=== PATIENT | female | born 1930 | race Caucasian/White ===

== ENCOUNTER 2016-12-03 05:49 | Inpatient (IN) | payer MEDICARE ==
[2016-12-03] VITALS (10 sets, daily range): BP systolic 94–130; BP diastolic 49–85; PULSE 86–119; RESP 14–20; O2SAT 88–99
[~2016-12-03] VITALS: Ht 157.5 cm; Wt 61.4 kg
[~2016-12-03 05:49] MED LIST: ACET650T46 PO; AMOX-366 PO; BENZ100C8 PO; CEFU500T PO; CHOL10008 PO; CLOP75TA3 PO; DEP500A PO; FLUO40CA12 PO; FURO-129 PO; GUAI400T57 PO; IPRA3AMP IH; LACT1CAP57 PO; LIP40 PO; METO50TA3 PO; MIRT45TA PO; O2 NASAL; OMEP20CA11 PO; ONDA4TAB6 PO; OXYC-474 PO; POLY17PO6 PO; SENN17.27 PO; SUCR1TAB30 PO
[2016-12-03 06:13] LABS: BASOPHILS % (AUTO) 0.1 % (0-3); EOSINOPHILS % (AUTO) 2.1 % (0-5); MONOCYTES % (AUTO) 11.7 % (4-12); Mean Corpuscular Hemoglobin 29.3 pg (27.0-35.0); Mean Corpuscular Volume 94.4 fL (81-100); NEUTROPHILS % (AUTO) 55.7 % (40-74); Platelet Count 236 bil/L (150-400)
--- NOTE | 2016-12-03 06:25 | ED.REPORT ---
HPI-Chest Pain 40 and Over Date of Service December 03, 2016 ED Provider: Garret Mercado MD The patient is an 86 year old female w/ a hx of CHF and a-fib who presents to the ED due to intermittent, left-sided, chest pain radiating into the back and left arm onset 8 hrs SHIPPING LEAD PERSON. Yesterday, the pt walked half of [employer], returned home and seemed to feel normal. She used a whole tank of O2 (3L). By 1999 last night, she did not feel well and she, "knew something was wrong." Associated symptoms include light headedness, nausea, dizziness, loss of appetite, and SOB. She noticed an elevated blood pressure and took her usual medications. Her blood pressure then returned to normal and she went to bed. At 2200, while laying down, she experienced left sided chest pain radiating into her back and left arm. She denies vomiting, cough, and fever. Her symptoms continued intermittently throughout the night. The pt is currently on Plavix and Coy. Nursing Notes Stated Complaint: LEFT SIDED CHEST PRESSURE Chief Complaint: Chest Pain Nursing Notes Reviewed: Yes Allergies: Coded Allergies: Contrast Media (Verified Allergy, Severe, RASH, 12/03/16) chlorpromazine (Verified Allergy, Severe, RASH ORAL SWELLING, 12/03/16) RASH & SWELLING codeine (Verified Allergy, Severe, RASH,nausea,hives, 12/03/16) gentamicin (Verified Allergy, Severe, EYES CLOSE WITH THE EYE DROPS, ) iodine (Verified Allergy, Severe, RASH, 12/03/16) povidone (Verified Allergy, Severe, RASH, 12/03/16) prochlorperazine (Verified Allergy, Severe, RASH, THROAT SWELLING AND DIFFICULTY SWALLOWING, 12/03/16) tetanus toxoid, adsorbed (Verified Allergy, Severe, SWELLING, SOB, 12/03/16) hydromorphone (Verified Allergy, Intermediate, Hallucinations, 12/03/16) aspirin (Verified Allergy, Unknown, interacts with medication Depakote, 12/03/16) nickel (Verified Allergy, Unknown, Rash, 12/03/16) hydromorphone HCl (Verified Adverse Reaction, Severe, Hallucinations, ) warfarin (Verified Adverse Reaction, Unknown, 12/03/16) States "I didn't get my PT tested and almost bled to " Uncoded Allergies: NICKEL (Allergy, Severe, RASH, 08/13/15) Meclizine (Allergy, Unknown, UNKNOWN, 08/13/15) Scheduled ([O2]) 3 L NASAL continously Acetaminophen (Tylenol Arthritis) 650 Mg Tablet.er 1,300 MG PO HS Acetaminophen (Tylenol Arthritis) 650 Mg Tablet.er 650 MG PO MORNING Atorvastatin (Lipitor) 40 Mg Tablet 40 MG PO HS Cholecalciferol (Vitamin D3) (Vitamin D3) 1,000 Unit Tab.chew 1,000 UNIT PO DAILY Clopidogrel Bisulfate (Plavix) 75 Mg Tablet 75 MG PO DAILY Divalproex DR (Depakote DR) 500 Mg Tablet 500 MG PO BID Swallowed whole without chewing to avoid local irritation of the mouth and throat. Fluoxetine (Prozac) 40 Mg Capsule 40 MG PO DAILY Furosemide (Lasix) 20 Mg Tablet 40 MG PO BID Metoprolol Tartrate (Metoprolol Tartrate) 50 Mg Tablet 75 MG PO BIDWM Ranitidine (Ranitidine) 150 Mg Capsule 150 MG PO BID Scheduled PRN Ipratropium/Albuterol Sulfate (Iprat-Albut 0.5-3(2.5) mg/3 mL Inhalant Soln) 3 Ml Ampul.neb 3 ML IH QID PRN PRN For Shortness of Breath Mirtazapine (Remeron) 45 Mg Tablet 45 MG PO HS PRN PRN Insomnia Oxycodone (Roxicodone) 5 Mg Tablet 5 MG PO Q4H PRN PRN For Pain Polyethylene Glycol 3350 (Miralax) 17 Gm Powd.pack 17 GM PO DAILY PRN PRN For Constipation Sennosides (Senna-Extra) 17.2 Mg Tablet 17.2 MG PO HS PRN PRN For Constipation General Time Seen by MD: 06:05 Chief Complaint Chest pain Hx Obtained From: Patient Arrived By: Walk-in Sudden in Onset?: Yes Onset Occurred: 5 - 8 hours ago Symptom Duration: Since onset Location: : Chest left Quality: Painful Radiation: : Arm left: Back Severity: Current: No pain currently Recent Healthcare: No recent doctor visit, No recent hospitalization Similar Sx Previous: No Past Medical History Past Medical History Notes: PCP: Dr. Ross Patient admitted November 14-2015 for pneumonia treated with Zithromax and Rocephin Developed diarrhea, C. difficile neck negative Past Medical History Anemia rheumatic fever History of pneumonia Atrial fibrillation on Plavix due to history of GI bleeding History of seizures on divalproex Reports: Congestive heart failure, Hyperlipidemia, Peptic ulcer disease Reports: Atrial fibrillation, Depression, Seizure disorder Past Surgical History 2 laminectomies 4 spinal fusions 2 bladder surgeries Bowel resection Bilateral hip replacements Reports: Hysterectomy, Tonsillectomy Family History Noncontributory Smoking History Former Smoker Social History Alcohol Use: 1-3 per week Drug Use: Denies drug use Other Social History: , Local resident Occupation Patient worked as a nurse in [place], [place], 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 Ambulatory Status Walker Review of Systems Constitutional: Denies: Fever Respiratory: Reports: Shortness of breath, Denies: Non-productive cough Cardiovascular: Reports: Chest pain GI: Reports: Nausea, Denies: Vomiting Neurologic: Reports: Dizziness, Lightheaded Complete sys rev & neg: except as marked. Physical Exam Initial Vital Signs Vital Signs (First) Date Time Temp Pulse Resp B/P Pulse Ox O2 Delivery O2 Flow Rate FiO2 12/03/16 05:53 37.0 104 20 130/70 96 Room Air 12/03/16 06:19 3 Initial VS: Reviewed Head / Eyes: Atraumatic, Normocephalic ENT: Mucous membranes moist, Conjunctiva normal Neck: Supple Skin: Warm, Dry Respiratory / Chest: Atraumatic, Breath sounds NL, Breath sounds = bilat Cardiovascular: No murmurs Heart Rate / Rhythm: Positive: Irregular rhythm left sided, reproduceable chest pain Abdomen: Atraumatic, Soft, Non-tender Lower Extremity / Pelvis / MS: Atraumatic, No edema Interpretation & Diagnostics Lab Results Interpretation Result Diagram: 12/03/16 0555 12/03/16 0555 Test 12/03/16 05:55 White Blood Count 6.8th/mm3 (3.8-10.1) Red Blood Count 4.44mil/mm3 (3.90-5.20) Hemoglobin 13.0g/dL (12.0-15.6) Hematocrit 41.9% (35.0-46.0) Mean Corpuscular Volume 94.4fL (81-100) Mean Corpuscular Hemoglobin 29.3pg (27.0-35.0) Mean Corpuscular Hemoglobin Concent 31.0% (32.0-37.0) Red Cell Distribution Width 16.5% (12.3-15.4) Platelet Count 236bil/L (150-400) Neutrophils (%) (Auto) 55.7% (40-74) Lymphocytes (%) (Auto) 29.7% (14-46) Monocytes (%) (Auto) 11.7% (4-12) Eosinophils (%) (Auto) 2.1% (0-5) Basophils (%) (Auto) 0.1% (0-3) Sodium Level 142mEq/L (134-144) Potassium Level 4.4mEq/L (3.5-5.2) Chloride Level 98mEq/L (97-108) Carbon Dioxide Level 27mmol/L (18-29) Blood Urea Nitrogen 18mg/dL (8-27) Creatinine 0.69mg/dL (0.57-1.00) Estimat Glomerular Filtration Rate 116mL/min (>59) Glucose Level 125mg/dL (60-99) Calcium Level 9.7mg/dL (8.5-10.1) Magnesium Level 2.2mg/dL (1.6-2.6) Total Bilirubin 0.2mg/dL (0.0-1.2) Aspartate Amino Transf (AST/SGOT) 24U/L (0-50) Alanine Aminotransferase (ALT/SGPT) 11U/L (0-32) Alkaline Phosphatase 76U/L (25-165) Pro-B-Type Natriuretic Peptide 2178pg/mL (0-738) Total Protein 7.5g/dL (6.4-8.4) Albumin 4.2g/dL (3.4-5.0) Hold Saleh Top Tube Received (Received) Valproic Acid (Depakene) Level 91ug/mL (50-125) ECG Interpretation Time: 06:10 Interpreted by: ED physician Normal ECG Interpretation: No change from prior ECGs Rhythm / Conduction: Atrial fibrillation ((rate 104)) Re-Eval/Medical Decision Med Decision/Clinical Course 86-year-old female with left-sided chest pain, intermittent and associated dizziness, nausea, shortness of breath since last night. At rest. First set troponins negative. Discussed with cardiology who recommended admission trending troponins and EKGs. They will consult. Aspirin given. Time of Eval: 07:18 Re-Evaluation/Progress Note: Pt rechecked. Informed pt of need for admission for further observation. Pt understands and agrees with plan. All questions addressed. Consultation : Referral / Consult Name: Sienna Brennan MD Consulted With: Cardiology Call Returned at: 07:13 Director Of Pulmonary Unit: Agrees with eval, Agrees with plan Note: Dr. Brennan advised admit for observation. Counseled Regarding: Diagnosis, Lab results, Need for admission Discharge & Departure Primary Impression: Chest pain Chest pain type: unspecified Qualified Code: R07.9 - Chest pain, unspecified Ruled Out: ACS (acute coronary syndrome) Disposition: Home Discharge Condition All VS Reviewed: Yes Condition: Stable Referrals: Karen Ross MD (PCP) Scribe Attestation Portion of this note were transcribed by Saniya Newell. I, Dr. Mercado, personally performed the history, physical exam, and medical decision-making: I reviewed and confirmed the accuracy for the information in the transcribed note. Signed by: dorian Barnes, 12/03/16 0900 copies to: Karen Ross MD, Ben M MD December 03, 2016 06:25 Saniya Newell December 03, 2016 06:34 Garret Mercado MD December 03, 2016 06:25 Saniya Newell December 03, 2016 06:34
[2016-12-03 06:31] LABS: TROPONIN T 0.01 ug/L (0.0-0.011)
[2016-12-03 06:45] LABS: Magnesium 2.2 mg/dL (1.6-2.6)
[2016-12-03] MEDS ORDERED: Ondansetron 2 mg/mL 2 mL Inj IVPUSH PRN (07:40)
[2016-12-03] MEDS ORDERED: Polyethylene Glycol (PEG) 17 Gm Powder PO PRN ×2 (07:40→17:30)
[2016-12-03] MEDS ORDERED: Alum-Mag Hydrox-Simeth 30 mL Suspension PO PRN (07:40)
--- NOTE | 2016-12-03 08:29 | DRSVH ---
PROCEDURE: X-RAY CHEST ONE VIEW, PORTABLE ([id number]) INDICATIONS: left sided reproduceable chest pressure TECHNIQUE: One view of the chest was acquired. COMPARISON: [facility], CR, XR CHEST 2VW, 07/01/2016, 10:34. FINDINGS: Surgical changes and devices: None. Lungs and pleura: No pleural effusions or pneumothorax. Lungs are clear. Scattered subcentimeter h yperdensity presumed bibasilar calcific granulomas Mediastinum: Mediastinal contours appear normal. Heart size is normal. Bones and chest wall: No suspicious bony lesions. There are scattered discogenic changes Overlying s oft tissues appear unremarkable. IMPRESSION: Overall, no interval change or acute disease. Dictated by: Mynor Dotson M.D. on 12/03/2016 at 8:26 Approved by: Mynor Dotson M.D. on 12/03/2016 at 8:27
[2016-12-03] MEDS ORDERED: RANI150C4 PO (09:30)
[2016-12-03] MEDS ORDERED: ACET-2766 PO ×2 (09:44)
[2016-12-03] MEDS: Sodium Chloride LOK Flush 10 mL Syringe IVFLUSH SCH ×2 (11:30→16:08)
[2016-12-03 13:08] LABS: Creatine Kinase 59 U/L (21-215)
[2016-12-03 13:09] LABS: TROPONIN T < 0.010 ug/L (0.0-0.011)
[2016-12-03] MEDS ORDERED: Albuterol-Ipratropium 3 mL Inhalation Solution INHALATION PRN (17:30)
[2016-12-03] MEDS ORDERED: Furosemide 10 mg/mL 4 mL Inj IVPUSH ONE ×2 (17:40)
[2016-12-03] MEDS ORDERED: Furosemide 10 mg/mL 2 mL Inj IVPUSH ONE ×3 (18:10→20:10)
[2016-12-03 18:29] LABS: TROPONIN T < 0.010 ug/L (0.0-0.011)
[2016-12-03 18:42] LABS: Creatine Kinase 80 U/L (21-215)
--- NOTE | 2016-12-03 20:27 | PCM.HPMED ---
Subjective Date of Service December 03, 2016 Primary Provider: Admitting Physician: Primary Care Physician: Karen Ross MD Attending Physician: Admit Status: From the Emergency Department Chief Complaint: Chest pain History of Present Illness: 86-year-old white female with past medical history of A. fib, CHF of unknown type, hypertension, rheumatic fever is presenting with chest pain that has been ongoing since last night. Patient states that she has gone to [employer] and walk pretty well she also says that she has used up a whole tank of oxygen by using 3 L at a time. Subsequently she did not feel very well last night noticed that her blood pressure was high and took her medications which brought the blood pressure down. She states that she had a hypertensive urgency in the remote past. She had to stop Coumadin because of a bleeding problem. She states that she has mild acid reflux problems, her chest pain is radiating to the left arm, , she is thinking that her chest pain is ongoing 8 hours prior to arrival, she also has left pectoral wall pain that worsens with movement. Upper ultrasound echo from 02/14 shows A. fib with controlled rate, moderate pulmonary pressures, 55-60% EF, moderate mitral regurgitation, moderate tricuspid regurgitation, moderate left atrial dilation. In the ER troponins were negative chest x-ray was negative. Labs are within normal, troponin was negative, EKG showed no changes from prior. Dr. Palomino was contacted by the ER staff, who has asked for her to be admitted for chest pain rule out with just aspirin. Patient cannot tell me why she is on Plavix. Review of Systems: Gen.: No weight gain patient has been having fevers and malaise Eyes: no visual disturbances or blurring vision Cardiac: Denies pedal edema Pulmonary: Denies wheezing or bringing up of sputum , positive for dyspnea GI: No anorexia nausea : no dysuria Musculoskeletal: Left arm, chest wall pain as above Neuro: No syncope, seizures no loss of consciousness no new focal weakness, numbness or tingling Psychiatric: No new anxiety insomnia or depression Endocrine: No new heat or cold intolerances Allergies Coded Allergies: Contrast Media (Verified Allergy, Severe, RASH, 12/03/16) chlorpromazine (Verified Allergy, Severe, RASH ORAL SWELLING, 12/03/16) RASH & SWELLING codeine (Verified Allergy, Severe, RASH,nausea,hives, 12/03/16) gentamicin (Verified Allergy, Severe, EYES CLOSE WITH THE EYE DROPS, ) iodine (Verified Allergy, Severe, RASH, 12/03/16) povidone (Verified Allergy, Severe, RASH, 12/03/16) prochlorperazine (Verified Allergy, Severe, RASH, THROAT SWELLING AND DIFFICULTY SWALLOWING, 12/03/16) tetanus toxoid, adsorbed (Verified Allergy, Severe, SWELLING, SOB, 12/03/16) hydromorphone (Verified Allergy, Intermediate, Hallucinations, 12/03/16) aspirin (Verified Allergy, Unknown, interacts with medication Depakote, 12/03/16) nickel (Verified Allergy, Unknown, Rash, 12/03/16) hydromorphone HCl (Verified Adverse Reaction, Severe, Hallucinations, ) warfarin (Verified Adverse Reaction, Unknown, 12/03/16) States "I didn't get my PT tested and almost bled to " Uncoded Allergies: NICKEL (Allergy, Severe, RASH, 08/13/15) Meclizine (Allergy, Unknown, UNKNOWN, 08/13/15) Home Medications Her medications include atorvastatin, Plavix, and Depakote, fluoxetine, Lasix, metoprolol tartrate, omeprazole, benzonatate, Mucinex, DuoNeb nebs, and Zofran, PMH rheumatic fever, chf of unknown type, afib, seizures, anemia, hypertension, arthritis, depression Surgical History two laminectomies, two spinal fusions, bowel resection, hysterectomy, tonsillectomy, bowel resection, b/l hip replacement, L wrist surgery Family History She has 2 children who . One of them of cancer and necrotizing skin infection. The other one simply disappeared and presumed that she has full children total Social History Occupation: Retired nurse Hx Alcohol Use: Yes Hx Substance Use: Yes Hx Tobacco Use: Yes (quit in 1984) Smoking Status: Former Smoker Exam Vital Signs Vital Sign - Last Date Time Temp Pulse Resp B/P Pulse Ox O2 Delivery O2 Flow Rate FiO2 12/03/16 06:19 86 14 120/69 94 Nasal Cannula 3 12/03/16 05:53 37.0 Exam General: NAD, laying in bed, some what distressed female HEENT: NCAT Eyes: [place] conjunctivae. No ptosis, PERRL Neck: No masses, trachea midline, no thyromegaly Lungs: CTA with normal respiratory effort, no crackles or wheezes CV: RRR, soft systolic murmur GI: Soft, non-tender with no hepatosplenomegaly MSK: no digital cyanosis Skin: Warm and dry. No rash, lesions or ulcers Psych: A&O X3, with appropriate affect Neuro: No focal deficits Musculoskeletal: Palpable chest wall tenderness also severe joint clicking on L arm flexion and abduction and adduction Lab and Diagnostics Result Diagram: 12/03/1655412/03/16554 Assessment & Plan This is a 86-year-old lady with a past medical history of CHF of unknown type, A. fib, hypertensive urgency, rheumatic fever presenting with chest pain ongoing for 8 hours Assessment #1 chest pain, . 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 tamayo, but was unsuccessful as it was passed her clinic time, we will attempt again 12/04 -- BNP is ordered -- Echocardiogram is ordered -- Continue her metoprolol, Plavix and statin -- Heparin subcutaneous 3 times a day for DVT prophylaxis Assessment #2 right-sided heart failure based on clinical examination and review of echo from 2014, [place] -- Lasix 40 mg this evening, Lasix 3 times a day 40 mg IV -- BNP returned elevated at greater than 2000 -- We will monitor for now as her blood pressures were on the low side -- Morphine when necessary -- Echocardiogram is ordered -- We will consult cardiology tomorrow Assessment #3 seizures, chronic -- Depakote levels were done -- Continue medication Assessment number 4 depression chronic -- Continue home meds Assessment #5 COPD -- Continue meds duonebs Assessment #6 GERD -- Pepcid by mouth CODE STATUS DO NOT RESUSCITATE/DO NOT INTUBATE Alternate decision-maker T J, son [phone] Pain Evaluation: Adequate Pain Control GI Prophylaxis: H2 antony VTE Prophylaxis: Sub-Q Heparin (Unfractionated) Resuscitation Status: DNR/DNI:Do Not Resuscitate/Intubate Elizabeth Stafford DO December 03, 2016 07:36
[2016-12-03] MEDS ORDERED: Albuterol-Ipratropium 3 mL Inhalation Solution NEB PRN (20:35)
[2016-12-03] MEDS: Heparin 5,000 Unit/mL Inj SUBQ SCH (21:28)
[2016-12-04] VITALS (11 sets, daily range): BP systolic 88–121; BP diastolic 54–90; PULSE 81–95; RESP 16–20; O2SAT 93–98
[2016-12-04] MEDS: Sodium Chloride LOK Flush 10 mL Syringe IVFLUSH SCH ×3 (00:37→16:19)
[2016-12-04] MEDS ORDERED: Nitroglycerin 2% 1 Gm Ointment TOPICAL ONE (02:00)
[2016-12-04] MEDS: Heparin 5,000 Unit/mL Inj SUBQ SCH ×3 (04:18→20:08)
--- NOTE | 2016-12-04 05:44 | PCM.PNMED ---
Subjective Date of Service December 04, 2016 Subjective Patient had extensive hx of spine problems, seems to have reproducible pain. Responding well to morphine, requested pain medication overnight. Nitroglycerin did not help but morphine did. She tells me her oxygen at home is for CHF, not COPD. Exam Vital Signs Vital Sign - Last Date Time Temp Pulse Resp B/P Pulse Ox O2 Delivery O2 Flow Rate FiO2 12/04/16 04:22 Supplement Oxygen 12/04/16 04:15 82 18 98 3.00 12/04/16 04:12 111/71 12/04/16 00:37 36.8 Intake and Output 12/03/16 12/03/16 12/04/16 Cumulative From/Thru 15:00 23:00 07:00 12/03/16 05:53 - 12/03/16 20:27 Intake Total 480 ml 480 ml Balance 480 ml 480 ml Intake Oral 480 ml 480 ml IV Total 0 ml 0 ml # Voids 1 1 Exam General: NAD, laying in bed, some what distressed female HEENT: NCAT Eyes: [place] conjunctivae. No ptosis, PERRL Neck: No masses, trachea midline, no thyromegaly. right-sided JVD, positive hepatojugular reflux Lungs: CTA with normal respiratory effort, no crackles or wheezes CV: RRR, soft systolic murmur GI: Soft, non-tender with no hepatosplenomegaly MSK: no digital cyanosis Skin: Warm and dry. No rash, lesions or ulcers Psych: A&O X3, with appropriate affect Neuro: No focal deficits Musculoskeletal: Palpable chest wall tenderness also severe joint pain in L shoulder IVs and Medications Medications Reviewed: Medications were reviewed in detail Lab and Diagnostics Laboratory Tests Test 12/03/16 17:50 12/04/16 05:44 Total Creatine Kinase 80U/L (21-215) Creatine Kinase MB 2.3ng/mL (0.0-5.3) Creatine Kinase MB % % (0.0-5.0) Troponin T < 0.010ug/L (0.0-0.011) 0.010ug/L (0.0-0.011) White Blood Count 7.2th/mm3 (3.8-10.1) Red Blood Count 4.39mil/mm3 (3.90-5.20) Hemoglobin 12.9g/dL (12.0-15.6) Hematocrit 41.9% (35.0-46.0) Mean Corpuscular Volume 95.4fL (81-100) Mean Corpuscular Hemoglobin 29.4pg (27.0-35.0) Mean Corpuscular Hemoglobin Concent 30.8% (32.0-37.0) Red Cell Distribution Width 16.8% (12.3-15.4) Platelet Count 201bil/L (150-400) Neutrophils (%) (Auto) 53.5% (40-74) Lymphocytes (%) (Auto) 32.4% (14-46) Monocytes (%) (Auto) 10.6% (4-12) Eosinophils (%) (Auto) 2.5% (0-5) Basophils (%) (Auto) 0.6% (0-3) Sodium Level 140mEq/L (134-144) Potassium Level 5.1mEq/L (3.5-5.2) Chloride Level 97mEq/L (97-108) Carbon Dioxide Level 27mmol/L (18-29) Blood Urea Nitrogen 18mg/dL (8-27) Creatinine 0.66mg/dL (0.57-1.00) Estimat Glomerular Filtration Rate 122mL/min (>59) Glucose Level 94mg/dL (60-99) Calcium Level 9.3mg/dL (8.5-10.1) Total Bilirubin 0.2mg/dL (0.0-1.2) Aspartate Amino Transf (AST/SGOT) 25U/L (0-50) Alanine Aminotransferase (ALT/SGPT) 8U/L (0-32) Alkaline Phosphatase 74U/L (25-165) Total Protein 6.6g/dL (6.4-8.4) Albumin 3.8g/dL (3.4-5.0) Result Diagram: 12/03/1655 12/03/16554 Cardiac Echo Impressions ECHO : 1930 Age: 86 yrs BP: 111/71 mmHg Reason For Study: ELEVATED BNP Ordering Physician: HOSPITALIST SVHPerformed By: Jim Youngblood Referring Physician: ELIZABETH US Interpretation Summary There is a prominent hiatal hernia behind the left atrium. There is mild- moderate concentric left ventricular hypertrophy. Left ventricular systolic function is normal without focal wall motion abnormalities. The ejection fraction is estimated to be 55-60%. LVEF has remained stable. The right ventricle grossly appears normal in size with probable normal systolic function. The right ventricular systolic pressure is estimated at 24 mmHg assuming a right atrial pressure of 3 mm Hg. Compared to the prior echo exam, there has been a decrease in the severity of pulmonary hypertension. The left atrium is severely dilated. The right atrium is mildly dilated. There is mild mitral regurgitation. MR has decreased since prior study. There is no other significant valvular heart disease. The aortic root is normal size. Reading Physician:PM Assessment & Plan This is a 86-year-old lady with a past medical history of CHF of unknown type, A. fib, hypertensive urgency, rheumatic fever presenting with chest pain ongoing for 8 hours Assessment #1 chest pain, . 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 Fierro, but was unsuccessful as it was passed her clinic time, we will attempt again 5/ -- BNP is ordered -- Echocardiogram is ordered: Appears her heart function actually improved since her last echo. -- Continue her metoprolol, Plavix and statin -- Heparin subcutaneous 3 times a day for DVT prophylaxis -- 5/ patient is ruled out for ACS. -- She is given 1 dose of 40 mg IV Lasix5/ evening, was seen by cardiology this morning. Dr. El has seen the patient and determined that this is purely musculoskeletal. He does not feel any further workup is called for. We appreciate their recommendations -- We will restart home dose of Lasix. Stop aspirin Assessment #2 right-sided heart failure based on clinical examination and review of echo from 2014, [place] -- Lasix 40 mg this evening, Lasix 3 times a day 40 mg IV: Lasix is discontinued after cardiology has seen the patient and echocardiogram was done -- BNP returned elevated at greater than 2000 -- We will monitor for now as her blood pressures were on the low side -- Morphine when necessary: Discontinued morphine, called son MARTINA who tells me that patient likes pain medication. Has struggled with pain medication addiction for about 10 years. Son is very careful with giving her pain medications. Son expects her to go back to her home setting, he has he had made arrangements for caregivers for her to stay at home. -- Echocardiogram is ordered: Results are reviewed as above. 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 -- Oxycodone when necessary is ordered, however we do not plan to continue this medication at discharge. Plan to get her pain under control with tramadol or Tylenol 3. CODE STATUS DO NOT RESUSCITATE/DO NOT INTUBATE Alternate decision-maker Nick Almonte, son [phone] Disposition: Patient will be discharged home tomorrow on a careful pain medication regimen. ACS is ruled out. Her cardiac failure is no worse than her baseline. Pain Evaluation: Pain not Controlled GI Prophylaxis: H2 antony VTE Prophylaxis: Sub-Q Heparin (Unfractionated) VTE Mechanical Devices: Intermittant Pneumatic CD Resuscitation Status: DNR/DNI:Do Not Resuscitate/Intubate Elizabeth Us DO December 04, 2016 05:44
[2016-12-04] MEDS ORDERED: Furosemide 10 mg/mL 4 mL Inj IVPUSH SCH (06:00)
[2016-12-04 06:35] LABS: BASOPHILS % (AUTO) 0.6 % (0-3); EOSINOPHILS % (AUTO) 2.5 % (0-5); MONOCYTES % (AUTO) 10.6 % (4-12); Mean Corpuscular Hemoglobin 29.4 pg (27.0-35.0); Mean Corpuscular Volume 95.4 fL (81-100); NEUTROPHILS % (AUTO) 53.5 % (40-74); Platelet Count 201 bil/L (150-400)
--- NOTE | 2016-12-04 10:07 | DRSVH ---
PROCEDURE: X-RAY LEFT RIBS, TWO VIEWS ([id number]) INDICATIONS: pain TECHNIQUE: 3 views of the left ribs were acquired. COMPARISON: [facility], CR, XR CHEST 1VW (PORTABLE), 12/03/2016, 6:13. [facility], CR, XR CHEST 2VW, 07/01/2016, 10:34. [facility], CR, XR CHEST 2VW, 06/13/2016, 11:38. [facility], CR, XR CHEST 2VW, 11/28/2015, 13:24. FINDINGS: Surgical changes and devices: Fixation hardware within the lumbar spine incompletely visualized.. Bones and chest wall: Left fifth through eighth healed posterior lateral fractures redemonstrated. N o new acute fracture seen. Lungs and pleura: The visualized lung appears clear. No pleural effusions or pneumothorax are visib le. IMPRESSION: No new acute displaced left sided rib fracture seen. Dictated by: Alverto PATEL Interpreted: William Fraser MD on 12/04/2016 at 10:05 Transcribed by: CHERI on 12/04/2016 at 10:06 Approved by: William Fraser M.D. on 12/04/2016 at 10:45
--- NOTE | 2016-12-04 10:08 | DRSVH ---
PROCEDURE: X-RAY LEFT SHOULDER, MINIMUM TWO VIEWS ([id number]) INDICATIONS: pain TECHNIQUE: 3 views of the shoulder were acquired. COMPARISON: [facility], CR, XR RIBS UNILAT 2VW LT, 12/04/2016, 9:10. [facility], CR, XR CHEST 1VW (PORTABLE), 12/03/2016, 6:13. [facility], CR, XR CHEST 2VW, 2015, 10:34. [facility], CR, XR CHEST 2VW, 06/13/2016, 11:38. [facility], CR, XR CHEST 2VW, 11/28/2015, 13:24. FINDINGS: Bones: No fractures or dislocations. No suspicious bony lesions. Visualized ribs appear intact. T he acromioclavicular and severe glenohumeral joint narrowing with periarticular osteophyte formation. . Several healed left posterior lateral fractures redemonstrated. Soft tissues: No suspicious soft tissue calcifications. IMPRESSION: 1. Severe glenohumeral joint degeneration. Dictated by: Alverto Morrow [facility] Interpreted: William Fraser MD on 12/04/2016 at 10:07 Transcribed by: CHERI on 12/04/2016 at 10:08 Approved by: William Fraser M.D. on 12/04/2016 at 10:46
--- NOTE | 2016-12-04 12:23 | CONS ---
[address] [address] CARDIOLOGY INPATIENT CONSULTATION REPORT PATIENT: JEFFERSON ZAYAS : 1930 MR#: [id number] ADMIT: 12/03/2016 JOB ID: [id number] DATE OF SERVICE: 12/04/2016 HISTORY OF PRESENT ILLNESS: This is a very pleasant 86-year-old lady with history of atrial fibrillation, (not anticoagulated because of hx of hematuria), hypertension and chronic hypoxia, and no prior history of coronary artery disease who was admitted on December 03, 2016, with chest pain. She is a retired nurse. The patient is a hard historian. She tells me that on Friday, December 02, 2016, she went to [facility] and she was walking quite a bit there pushing the cart, and she did pretty well, but at the end she got tired. when she came home she did not feel well. She tells me that in the evening she developed chest heaviness in the middle of her chest and on her left side of her chest, radiating to her arm. It was heavy and very uncomfortable. She checked her blood pressure, and it was high, 180/86 mmHg. She took her medication and blood pressure got better. Her chest heaviness got better but then it got again worse. She tells me that with deep breathing, chest heaviness was getting worse. All night she had chest heaviness. In the morning she was sitting on the floor, and she could not reach her son on the phone and her [employer] did not work. So, finally, Life [employer] people from my understanding called her, and 911 was called. She was brought to hospital. She continued having chest heaviness in her left side of her chest, radiating to her left arm, and it was actually reproducible with palpation. She did not feel nauseated or clammy. She felt maybe a little lightheaded and dizzy. On admission on EKG she was in atrial fibrillation with heart rate of 104. Also, blood pressure on admission was 130/70 mmHg, temperature 37 C, pulse 104 per minute and respiratory rate 20 per minute. She has chronic hypoxia. Since 2014, she had been using on oxygen on and off oxygen till November 2015,when she was hospitalized with aspiration pneumonia, and after that she has been using oxygen constantly at 3 L. Her labs on admission showed that she was not anemic. She had normal kidney function and electrolytes, and her troponins were negative x3. She did have an elevated proBNP of 2178. The patient tells me that in the past she has been getting chest heaviness on and off if she was doing strenuous activity. She cannot specify more exactly her intermittent chest heaviness in the past but stated that on Thursday the chest heaviness was totally different because it was there and it was not going away. She periodically gets short of breath. Again, tells me that it depends on activity, and she has been at home on furosemide 40 mg p.o. b.i.d. Her last echo was done in January 2015, and it showed that her ejection fraction was 55% to 60%. She had normal LV size. She had moderate mitral regurgitation and moderate tricuspid regurgitation. She had pulmonary hypertension with pulmonary pressure 41-46 mmHg; also she had moderate enlargement of both atria. The patient tells me that she has also a history of seizures, and she is on Depakote. Her last seizure was three years ago. She also has a history of shingles in the past on the right side of her lower chest. She denies presyncopal or syncopal episodes recently. She has a remote heavy smoking history. She used to smoke 1-2 packs a day and quit in 1994. She drinks one glass of wine occasionally. She denies recreational drug use. She lives alone. She has home health people coming to help her out periodically. She does not have a history of COPD and actually, she was seen by a drop wire operator in 2016 and had normal PFTs. REVIEW OF SYSTEMS: A 12-point review of systems negative except the ones mentioned in HPI. HOME MEDICATIONS: Her home medications include: 1. Atorvastatin 40 mg daily. 2. Clopidogrel 75 mg daily. It should be noted that she is not on aspirin. She tells me that a neurologist did not advise to take aspirin because she is taking Depakote. 3. She is on Depakote 500 mg tablet 1 tablet twice a day. 4. She is on metoprolol tartrate 50 mg 1 tablet twice a day. 5. Lasix 20 mg tablet 2 tablets twice a day. 6. She uses also ipratropium/albuterol 0.5 mg/3 mg (2.5 mg base)/3 mL nebulizer solution, inhale 3 mL by nebulization route 4 times every day. 7. MiraLAX 17 g per dose oral powder, take 17 g by oral route every day mixed with 8 ounces of water. 8. Mirtazapine 45 mg tablets. Take 1 tablet every day before bedtime. 9. She is on Prozac 40 mg daily. 10. Omeprazole 20 mg daily. PAST MEDICAL HISTORY: 1. Rheumatic fever. 2. Chronic atrial fibrillation. 3. Hypertension. 4. Seizures. SURGICAL HISTORY: 1. Two laminectomies. 2. Two spinal fusions. 3. Bowel resection. 4. Hysterectomy. 5. Tonsillectomy. 6. Bowel resection. FAMILY HISTORY: She cannot provide family history because she is adopted. EXAMINATION: Vital signs: Temperature 36.4, pulse 89 per minute, respiratory rate 17, blood pressure 111/67, pulse oximetry 97% saturation currently on room air. General: In no acute distress, lying in the bed comfortably. HEENT: Mucous membranes moist, sclerae anicteric. Neck: Supple, no thyromegaly. Lungs: Normal breathing sounds bilaterally, no crackles, no wheezing. Cardiovascular: Irregularly irregular rhythm. No murmur appreciated. GI: Abdomen nontender with palpation. Extremities: No lower extremity edema. Skin: Dry, no rash. Neuro: Alert and oriented x3. No gross abnormalities. LABORATORIES: She had a negative troponin x4 with last one done on December 04, 2016. Sodium 140, potassium 5.1, chloride 97, carbon dioxide 27, BUN 18, creatinine 0.66, glucose 94, calcium 9.3. Total bilirubin 0.2, AST 25, ALT 8, alkaline phosphatase 74, total protein 6.6, albumin 3.8. She is not anemic. White blood cells 7.2, red blood cells 4.39, hemoglobin 12.9, hematocrit 41.9, platelets 201. IMAGING: Chest x-ray showed no pleural effusions. Lungs are clear. Scattered subcentimeter hyperdensity present. Bibasilar calcific granuloma. ASSESSMENT AND PLAN: This is a very pleasant 86-year-old lady with history of chronic atrial fibrillation not anticoagulated because of history of hematuria in the past and she is just on Plavix, and she is not on aspirin because Neurology did not recommend to use aspirin, as she is on Depakote. She has a history of hypertension also, history of hyperlipidemia, history of moderate mitral regurgitation, moderate TR, pulmonary hypertension. She was admitted to [facility] on 12/03/2016 with chest heaviness, which has a pleuritic component and reproducible with palpitation. Her troponins were negative. 1.Chest pain/chest heaviness is atypical, it has has been constant since Thursday and troponins are still negative. It also has a pleuritic component and it is reproducible with chest palpitation. All of this suggests that the chest pain she has been experiencing is likely noncardiac in origin. 2. Chronic atrial fibrillation. Per telemetry, her atrial fibrillation is generally rate Controlled. She is not anticoagulated on warfarin because of hematuria in the past but she is on Plavix because Neurology did not recommend to have aspirin with Depakote together. On EKG on admission, she did not have any ischemic changes. 3. Hypertension. Controlled. She has not been hypertensive. 4. History of moderate mitral regurgitation. Left ventricular ejection fraction in the past per echo from 2015, was 55% to 60%. She is euvolemic on exam. RECOMMENDATIONS: As I mentioned above, I do not think that her chest heaviness/chest pain is cardiac in origin. At this point, I would recommend to discontinue her nitroglycerin paste. Also, she is not hypervolemic on exam. She does not have signs of heart failure. I would recommend to discontinue her IV furosemide and keep her on p.o. furosemide 40 mg daily. She actually has been taking as outpatient, 40 mg b.i.d. I think she does not need so much. Would continue metoprolol 75 mg b.i.d. I would recommend to do echo as an outpatient to re-assess her cardiac function and valvular apparatus. I do not think it will be easy to do echo right now when she has reproducible tenderness left side of chest wall. Also, as an outpatient she can have done a Lexiscan stress test, which is not urgent now. As I noted above, she has a history of shingle in the past. Right now, she does not have any rash. She will need to follow up with her PCP if she has continuous chest wall pain. At this point, I think the patient can be discharged and followed up with Primary Care and Cardiology offices at some point. The case and management were discussed and coordinated with on-call Business Development Dr. Brennan. BONIFACIO
--- NOTE | 2016-12-04 12:31 | DRSVH ---
[facility] [address] [place] [address] Echocardiogram Report Name: JEFFERSON ZAYAS Date: 12/04/2016 Height: 62 in Hospital Exam Location: [facility] Weight: 135 lb Gender: Female BSA: 1.6 m2 : 1930 Age: 86 yrs BP: 111/71 mmHg Reason For Study: ELEVATED BNP Ordering Physician: HOSPITALIST SVerformed By: Jim Youngblood Referring Physician: JAY US Interpretation Summary There is a prominent hiatal hernia behind the left atrium. There is mild- moderate concentric left ventricular hypertrophy. Left ventricular systolic function is normal without focal wall motion abnormalities. The ejection fraction is estimated to be 55-60%. LVEF has remained stable. The right ventricle grossly appears normal in size with probable normal systolic function. The right ventricular systolic pressure is estimated at 24 mmHg assuming a right atrial pressure of 3 mm Hg. Compared to the prior echo exam, there has been a decrease in the severity of pulmonary hypertension. The left atrium is severely dilated. The right atrium is mildly dilated. There is mild mitral regurgitation. MR has decreased since prior study. There is no other significant valvular heart disease. The aortic root is normal size. Procedure: A two-dimensional transthoracic echocardiogram with color flow and Doppler was performed. The study quality was technically adequate. Comparison is made with the echocardiogram of 02/05/15. The patient was in atrial fibrillation with heart rates between 84-107 bpm during the exam. Left Ventricle: There is mild-moderate concentric left ventricular hypertrophy. The left ventricle is normal in size. Left ventricular systolic function is normal without focal wall motion abnormalities. The ejection fraction is estimated to be 55-60%. Right Ventricle: The right ventricle grossly appears normal in size with probable normal systolic function. Atria: The left atrium is severely dilated. The right atrium is mildly dilated. The interatrial septum is intact with no evidence for an atrial septal defect. Mitral Valve: The mitral valve leaflets appear mildly thickened, but open well. There is moderate mitral annular calcification. There is mild mitral regurgitation. Aortic Valve: The aortic valve is normal in structure and function. There is trace aortic regurgitation. Tricuspid Valve: The tricuspid valve is normal. There is mild tricuspid regurgitation. The right ventricular systolic pressure is estimated at 24 mmHg assuming a right atrial pressure of 3 mm Hg. Compared to the prior echo exam, there has been a decrease in the severity of pulmonary hypertension. Pulmonic Valve: The pulmonic valve leaflets are thin and pliable; valve motion is normal. There is a trace or physiologic amount of pulmonic regurgitation. There is no other significant valvular heart disease. Great Vessels: The aortic root is normal size. The ascending aorta is at the upper limits of normal in size. The pulmonary artery is normal size. The IVC is of normal diameter and collapses greater than 50% with a sniff. This suggests a low right atrial pressure of 3 mm Hg. Pericardium/ Pleura There is no pericardial effusion. There is no pleural effusion. MMode/2D Measurements & Calculations LVIDd: 2.3 cm RA long axis LVOT diam: 2.0 cm LVIDs: 2.2 cm LA A2 area: 21.7 cm AoV Opening FS: 3.5 % LA A4 area: 31.5 cm RA area EPSS: 0.20 cm LA length (vol) Ao root diam IVSd: 1.3 cm : 19.5 cm LA vol: 95.9 ml RA vol asc Aorta Diam LA vol index : 57.5 ml RA Ao Arch Diam (Prox : 59.3 ml/m2 : 35.6 mm2 Trans): 2.2 cm LV rubio. diameter/BSA LV sys. diameter/BSA (cm/m^2): 1.4 (cm/m^2): 1.4 Doppler Measurements & Calculations Ao V2 max TR max jovany: 226.4 cm/secAo V2 mean LV V1 max PG : 92.8 cm/sec TR max P.5 mmHg : 64.3 cm/sec Ao max PG PA V2 max: 70.2 cm/sec Ao V2 VTI LV V1 VTI : 3.5 mmHg PA mean P.2 mmHg : 9.7 cm Ao mean PG ISABEL(V,D): 2.0 cm2 LVOT Max Jovany : 58.2 cm/sec ISABEL(I,D): 2.1 cm sev ratio PA V2 mean ISABEL indexed to BSA : 51.8 cm/sec (cm^2/m^2): 1.3 PA pr(Accel) : 39.7 mmHg Reading Physician:JENNIE
[2016-12-05] MEDS: Sodium Chloride LOK Flush 10 mL Syringe IVFLUSH SCH ×2 (00:02→08:08)
[2016-12-05 00:19] VITALS: BP 107/73; PULSE 89; RESP 20; O2SAT 94
--- NOTE | 2016-12-05 00:29 | CONS ---
[address] [address] CONSULTATION REPORT PATIENT: JEFFERSON ZAYAS : 1930 MR#: [id number] ADMIT: 12/03/2016 JOB ID: [id number] DATE OF SERVICE: 12/04/2016 REQUESTING PHYSICIAN: Elizabeth Stafford DO. REASON FOR EVALUATION: Chest pain. HISTORY OF PRESENT ILLNESS: I saw and examined the patient. Please see Uche Moreno's notes for detail. IMPRESSION: 1. Chest wall pain. 2. No evidence of congestive heart failure. 3. Moderate mitral regurgitation. 4. Chronic atrial fibrillation. PLAN: The patient could be discharged from the hospital. Aspirin will be discontinued as she is already receiving Plavix. I will discontinue furosemide IV and change her to furosemide 40 mg p.o. once daily. The patient will follow with her primary oracle security consultant, Dr. Fierro. [facility]AMPUSAngela
[2016-12-05 03:14] VITALS: PULSE 130
[2016-12-05] MEDS: Heparin 5,000 Unit/mL Inj SUBQ SCH ×2 (04:07→12:43)
[2016-12-05 04:10] VITALS: BP 100/67; PULSE 103; RESP 17; O2SAT 97
[2016-12-05] MEDS ORDERED: FURO40TA4 PO (07:36)
[2016-12-05] MEDS ORDERED: METO25TA6 PO (07:36)
[2016-12-05] MEDS ORDERED: CYCL10TA9 PO (07:36)
[2016-12-05 07:51] VITALS: PULSE 97
[2016-12-05 07:55] VITALS: BP 124/78; PULSE 104; RESP 16; O2SAT 96
[2016-12-05 08:00] VITALS: PULSE 118
[2016-12-05 08:04] LABS: APPEARANCE,URINE HAZY (CLEAR,HAZY); COLOR,URINE YELLOW (YELLOW); OCCULT BLOOD,URINE NEGATIVE (NEGATIVE); PH,URINE 6.5 (5.0-8.0); UROBILINOGEN,URINE NORMAL (NORMAL)
--- NOTE | 2016-12-05 09:04 | PCM.DIMED ---
Discharge Instructions Date of Service December 05, 2016 Dates of Hospitalization December 03, 2016 at 08:15 Discharge Diagnosis Discharge Diagnosis chest pain due to arthiritis glenohumoral pain, mitral regurgitation, afib Medication Instructions Please note your furosemide was changed to 20 mg BID from 40 mg BID. Please note your metoprolol dose is changed to 50 mg BID from 75 mg BID. Out patient PT for L shoulder pain for two weeks. Take flexeril as prescribed, please be aware that it may cause sedation. Diet Heart Healthy Activity Outpatient Physical Therapy Call your provider Fever or Chills, Shortness of breath, Bleeding, Chest pain, Vomitting, Excessive diarrhea, Weakness (unilateral), Other Patient Instructions Follow-up plan Please f/u with Dr. Fierro in 2 weeks Please f/u with PCP in 2 weeks Please F/U with outpatient PT/OT for 2 weeks Elizabeth Stafford DO December 05, 2016 09:04
--- NOTE | 2016-12-05 09:22 | PCM.DC.MED ---
Discharge Summary Date of Service December 05, 2016 Dates of Hospitalization Date of Hospital Admission December 03, 2016 at 08:15 Date of Discharge: December 05, 2016 Providers: Admitting Physician: Elizabeth Us DO Primary Care Physician: Karen Ross MD Attending Physician: Elizabeth Us DO Diagnosis at Time of Discharge Diagnosis at Time of Discharge chest pain due to arthiritis glenohumoral pain, mitral regurgitation, afib Consultations cardiology, PT Procedures XRay, CTs & MRIs PROCEDURE: X-RAY LEFT RIBS, TWO VIEWS ([id number]) INDICATIONS: pain . IMPRESSION: No new acute displaced left sided rib fracture seen. Dictated by: Alverto PATEL Interpreted: William Fraser MD on 12/04/2016 at 10:05 Transcribed by: CHERI on 12/04/2016 at 10:06 Approved by: William Fraser M.D. on 12/04/2016 at 10:45 PROCEDURE: X-RAY LEFT SHOULDER, MINIMUM TWO VIEWS ([id number]) INDICATIONS: pain IMPRESSION: 1. Severe glenohumeral joint degeneration. Dictated by: Alverto PATEL Interpreted: William Fraser MD on 12/04/2016 at 10:07 Transcribed by: CHERI on 12/04/2016 at 10:08 Approved by: William Fraser M.D. on 12/04/2016 at 10:46 ROCEDURE: X-RAY CHEST ONE VIEW, PORTABLE ([id number]) INDICATIONS: left sided reproduceable chest pressure IMPRESSION: Overall, no interval change or acute disease. Dictated by: Mynor Dotson M.D. on 12/03/2016 at 8:26 Approved by: Mynor Dotson M.D. on 12/03/2016 at 8:27 Cardiac Echo Impression ECHO : 1930 Age: 86 yrs BP: 111/71 mmHg Reason For Study: ELEVATED BNP Ordering Physician: HOSPITALIST SVHPerformed By: Jim Youngblood Referring Physician: ELIZABETH US Interpretation Summary There is a prominent hiatal hernia behind the left atrium. There is mild- moderate concentric left ventricular hypertrophy. Left ventricular systolic function is normal without focal wall motion abnormalities. The ejection fraction is estimated to be 55-60%. LVEF has remained stable. The right ventricle grossly appears normal in size with probable normal systolic function. The right ventricular systolic pressure is estimated at 24 mmHg assuming a right atrial pressure of 3 mm Hg. Compared to the prior echo exam, there has been a decrease in the severity of pulmonary hypertension. The left atrium is severely dilated. The right atrium is mildly dilated. There is mild mitral regurgitation. MR has decreased since prior study. There is no other significant valvular heart disease. The aortic root is normal size. Reading Physician:PM Brief History 86-year-old white female with past medical history of A. fib, CHF of unknown type, hypertension, rheumatic fever is presenting with chest pain that has been ongoing since last night. Patient states that she has gone to [place] and walk pretty well she also says that she has used up a whole tank of oxygen by using 3 L at a time. Subsequently she did not feel very well last night noticed that her blood pressure was high and took her medications which brought the blood pressure down. She states that she had a hypertensive urgency in the remote past. She had to stop Coumadin because of a bleeding problem. She states that she has mild acid reflux problems, her chest pain is radiating to the left arm, , she is thinking that her chest pain is ongoing 8 hours prior to arrival, she also has left pectoral wall pain that worsens with movement. Upper ultrasound echo from 02/14 shows A. fib with controlled rate, moderate pulmonary pressures, 55-60% EF, moderate mitral regurgitation, moderate tricuspid regurgitation, moderate left atrial dilation. In the ER troponins were negative chest x-ray was negative. Labs are within normal, troponin was negative, EKG showed no changes from prior. Dr. Palomino was contacted by the ER staff, who has asked for her to be admitted for chest pain rule out with just aspirin. Patient cannot tell me why she is on Plavix. Hospital Course This is a 86-year-old lady with a past medical history of CHF of unknown type, A. fib, hypertensive urgency, rheumatic fever presenting with chest pain ongoing for 8 hours Assessment #1 chest pain, . -- Telemonitoring, trend troponins, oxygen as needed -- Morphine as needed -- Aspirin daily -- N attempt was made to contact her court bailiff Dr. Fierro, but was unsuccessful as it was passed her clinic time, we will attempt again 12/04 -- BNP is ordered -- Echocardiogram is ordered: Appears her heart function actually improved since her last echo. -- Continue her metoprolol, Plavix and statin -- Heparin subcutaneous 3 times a day for DVT prophylaxis -- 12/04 patient is ruled out for ACS. -- She is given 1 dose of 40 mg IV Lasix12/03 evening, was seen by cardiology this morning. Dr. El has seen the patient and determined that this is purely musculoskeletal. He does not feel any further workup is called for. We appreciate their recommendations - Lasix home med is halved --Metorpolol home medication is halved Assessment #2 right-sided heart failure based on clinical examination and review of echo from 2014, [place] -- Lasix 40 mg this evening, Lasix 3 times a day 40 mg IV: Lasix is discontinued after cardiology has seen the patient and echocardiogram was done -- BNP returned elevated at greater than 2000 -- We will monitor for now as her blood pressures were on the low side -- Morphine when necessary: Discontinued morphine, called son MARTINA who tells me that patient likes pain medication. Has struggled with pain medication addiction for about 10 years. Son is very careful with giving her pain medications. Son expects her to go back to her home setting, he has he had made arrangements for caregivers for her to stay at home. She will be benefited from home PT -- Echocardiogram is ordered: Results are reviewed as above. Stable -- We consulted cardiology: Cardiology has seen the patient and see no need for any further interventions, they ruled out Right heart failure. Liekly her JV distension has resolved by the time they have seen the patient. We appreciate their rec's. 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 -- Oxycodone when necessary is ordered, however we do not plan to continue this medication at discharge. Patient has home meds for pain that the son carefully manages per a conversation I had with him on 12/04. Flexeril small dose is given. CODE STATUS DO NOT RESUSCITATE/DO NOT INTUBATE Alternate decision-maker helio Brower [phone] Exam Vital Signs (Last) Date Time Temp Pulse Resp B/P Pulse Ox O2 Delivery O2 Flow Rate FiO2 12/05/16 07:55 36.5 104 16 124/78 96 Nasal Cannula 3.00 Exam General: NAD, laying in bed, some what distressed female HEENT: NCAT Eyes: Scurry conjunctivae. No ptosis, PERRL Neck: No masses, trachea midline, no thyromegaly. Lungs: CTA with normal respiratory effort, no crackles or wheezes CV: RRR, soft systolic murmur GI: Soft, non-tender with no hepatosplenomegaly MSK: no digital cyanosis Skin: Warm and dry. No rash, lesions or ulcers Psych: A&O X3, with appropriate affect Neuro: No focal deficits Musculoskeletal: Palpable chest wall tenderness also severe joint pain in L shoulder Test 12/03/16 05:55 12/03/16 17:50 12/04/16 05:44 12/04/16 20:42 Magnesium Level 2.2mg/dL (1.6-2.6) Pro-B-Type Natriuretic Peptide 2178pg/mL (0-738) Hold Saleh Top Tube Received (Received) Valproic Acid (Depakene) Level 91ug/mL (50-125) Total Creatine Kinase 80U/L (21-215) Creatine Kinase MB 2.3ng/mL (0.0-5.3) Creatine Kinase MB % % (0.0-5.0) White Blood Count 7.2th/mm3 (3.8-10.1) Red Blood Count 4.39mil/mm3 (3.90-5.20) Hemoglobin 12.9g/dL (12.0-15.6) Hematocrit 41.9% (35.0-46.0) Mean Corpuscular Volume 95.4fL (81-100) Mean Corpuscular Hemoglobin 29.4pg (27.0-35.0) Mean Corpuscular Hemoglobin Concent 30.8% (32.0-37.0) Red Cell Distribution Width 16.8% (12.3-15.4) Platelet Count 201bil/L (150-400) Neutrophils (%) (Auto) 53.5% (40-74) Lymphocytes (%) (Auto) 32.4% (14-46) Monocytes (%) (Auto) 10.6% (4-12) Eosinophils (%) (Auto) 2.5% (0-5) Basophils (%) (Auto) 0.6% (0-3) Sodium Level 140mEq/L (134-144) Potassium Level 5.1mEq/L (3.5-5.2) Chloride Level 97mEq/L (97-108) Carbon Dioxide Level 27mmol/L (18-29) Blood Urea Nitrogen 18mg/dL (8-27) Creatinine 0.66mg/dL (0.57-1.00) Estimat Glomerular Filtration Rate 122mL/min (>59) Glucose Level 94mg/dL (60-99) Calcium Level 9.3mg/dL (8.5-10.1) Total Bilirubin 0.2mg/dL (0.0-1.2) Aspartate Amino Transf (AST/SGOT) 25U/L (0-50) Alanine Aminotransferase (ALT/SGPT) 8U/L (0-32) Alkaline Phosphatase 74U/L (25-165) Troponin T 0.010ug/L (0.0-0.011) Total Protein 6.6g/dL (6.4-8.4) Albumin 3.8g/dL (3.4-5.0) Urine Color Yellow (YELLOW) Urine Appearance Hazy (CLEAR,HAZY) Urine pH 6.5 (5.0-8.0) Urine Specific Malin 1.015 (1.003-1.035) Urine Protein Negativemg/dL (NEG,TRACE) Urine Glucose (UA) Negativemg/dL (NEGATIVE) Urine Ketones Negativemg/dL (NEGATIVE) Urine Occult Blood Negative (NEGATIVE) Urine Nitrite Negative (NEGATIVE) Urine Bilirubin Negative (NEGATIVE) Urine Urobilinogen Normalmg/dL (NORMAL) Urine Leukocyte Esterase Negative (NEGATIVE) Urine RBC 0-2/hpf (0-2) Urine WBC 0-5/hpf (0-5) Urine Epithelial Cells Occasional/hpf (NONE-MOD) Urine Crystals None seen (NONE SEEN) Urine Bacteria None/hpf (NONE-FEW) Urine Hyaline Casts None/lpf (NONE) Urine Granular Casts None seen (NONE SEEN) Urine Waxy Casts None seen (NONE SEEN) Urine Red Blood Cell Casts None seen (NONE SEEN) Urine White Blood Cell Casts None seen (NONE SEEN) Urine Mucus None seen (None Seen) Urine Trichomonas None seen (NONE SEEN) Urine Yeast None (NONE SEEN) Urinalysis Comment None Urine Culture Reflexed Not indicated Hold Urine Received (Received) Discharge Medications Discharge Medications ([O2]) 3 L NASAL continously (Reported) Acetaminophen (Tylenol Arthritis) 650 Mg Tablet.er 1,300 MG PO HS (Reported) Acetaminophen (Tylenol Arthritis) 650 Mg Tablet.er 650 MG PO MORNING (Reported) Atorvastatin (Lipitor) 40 Mg Tablet 40 MG PO HS (Reported) Cholecalciferol (Vitamin D3) (Vitamin D3) 1,000 Unit Tab.chew 1,000 UNIT PO DAILY (Reported) Clopidogrel Bisulfate (Plavix) 75 Mg Tablet 75 MG PO DAILY Prescribed by: LOUISE PEREZ DO Divalproex (Depakote ) 500 Mg Tablet 500 MG PO BID (Reported) Swallowed whole without chewing to avoid local irritation of the mouth and throat. Fluoxetine (Prozac) 40 Mg Capsule 40 MG PO DAILY (Reported) Furosemide (Lasix) 20 Mg Tablet 40 MG PO BID (Reported) Furosemide (Furosemide) 40 Mg Tablet 20 MG PO 0830,16 Prescribed by: ELIZABETH US DO Metoprolol Tartrate (Metoprolol Tartrate) 50 Mg Tablet 75 MG PO BIDWM (Reported ) Metoprolol Tartrate (Metoprolol Tartrate) 25 Mg Tablet 50 MG PO BIDWM Prescribed by: ELIZABETH US DO Ranitidine (Ranitidine) 150 Mg Capsule 150 MG PO BID (Reported) As needed Cyclobenzaprine (Cyclobenzaprine) 10 Mg Tablet 5 MG PO BID PRN PRN For Spasm Prescribed by: ELIZABETH US DO Ipratropium/Albuterol Sulfate (Iprat-Albut 0.5-3(2.5) mg/3 mL Inhalant Soln) 3 Ml Ampul.neb 3 ML IH QID PRN PRN For Shortness of Breath (Reported) Mirtazapine (Remeron) 45 Mg Tablet 45 MG PO HS PRN PRN Insomnia (Reported) Oxycodone (Roxicodone) 5 Mg Tablet 5 MG PO Q4H PRN PRN For Pain Prescribed by: TUYET SIMEON MD Polyethylene Glycol 3350 (Miralax) 17 Gm Powd.pack 17 GM PO DAILY PRN PRN For Constipation (Reported) Sennosides (Senna-Extra) 17.2 Mg Tablet 17.2 MG PO HS PRN PRN For Constipation ( Reported) Additional med instructions Please note your furosemide was changed to 20 mg BID from 40 mg BID. Please note your metoprolol dose is changed to 50 mg BID from 75 mg BID. Out patient PT for L shoulder pain for two weeks. Take flexeril as prescribed, please be aware that it may cause sedation. Followup Plan Follow-up plan Please f/u with Dr. Fierro in 2 weeks Please f/u with PCP in 2 weeks Please F/U with outpatient PT/OT for 2 weeks Discharge Diet: Heart Healthy Discharge Activity: Outpatient Physical Therapy Time spent 30 min Elizabeth Us DO December 05, 2016 09:11
== END 2016-12-05 14:40 | disposition home or self-care (01) | DRG 554 ==
LOC: SED 05:49 → MOC 08:15 → OBSVTOIN 08:15 → MOC 12-04 10:16
PROVIDERS: ADMIT Family Medicine; ATTEND Family Medicine
DX: M19.012 Primary osteoarthritis, left shoulder (principal); M25.512 Pain in left shoulder; Z87.891 Personal history of nicotine dependence; Z79.02 Long term (current) use of antithrombotics/antiplatelets; G40.909 Epilepsy, unspecified, not intractable, without status epilepticus; F32.9 Major depressive disorder, single episode, unspecified; J44.9 Chronic obstructive pulmonary disease, unspecified; K21.9 Gastro-esophageal reflux disease without esophagitis; Z66 Do not resuscitate; I48.2 Chronic atrial fibrillation; I34.0 Nonrheumatic mitral (valve) insufficiency; R07.89 Other chest pain

== ENCOUNTER 2016-12-09 13:13 | Inpatient (IN) | payer MEDICARE ==
[~2016-12-09] VITALS: Ht 157.5 cm; Wt 76.2 kg
[2016-12-09] VITALS (17 sets, daily range): BP systolic 97–132; BP diastolic 43–68; PULSE 112–139; RESP 11–33; O2SAT 96–99
[~2016-12-09 13:13] MED LIST changes: +ACET-2766 PO; -ACET650T46 PO; -AMOX-366 PO; -BENZ100C8 PO; -CEFU500T PO; +CYCL10TA9 PO; -FURO-129 PO; +FURO40TA4 PO; -GUAI400T57 PO; -LACT1CAP57 PO; +METO25TA6 PO; -METO50TA3 PO; -OMEP20CA11 PO; -ONDA4TAB6 PO; +RANI150C4 PO; -SUCR1TAB30 PO
--- NOTE | 2016-12-09 13:40 | ED.REPORT ---
HPI-General Illness Date of Service December 09, 2016 ED Provider: Chacho Tate DO An 86 year old female with an extensive medical history including atrial fibrillation, CHF and aspiration pneumonia among other medical concerns is referred to the ED from Urgent care due to a cough. The pt was admitted on 12/03 for chest pain and discharged four days ago. She was feeling well until this morning when she woke with a cough and shortness of breath. Nebulizer treatment only briefly helped to relieve her symptoms. The pt also admits to retaining some fluid but denies fever or chills. She was was seen in Urgent Care , who noted tachycardia. Per pt's caregiver, the pt is frequently noncompliant with her medications and home oxygen. Nursing Notes Stated Complaint: AFIB/TACHY/SHORTNESS OF BREATH/SENT FROM URGENT [place] Chief Complaint: Dysrhythmia/Cardiac Nursing Notes Reviewed: Yes Allergies: Coded Allergies: Contrast Media (Verified Allergy, Severe, RASH, 12/09/16) chlorpromazine (Verified Allergy, Severe, RASH ORAL SWELLING, 12/09/16) RASH & SWELLING codeine (Verified Allergy, Severe, RASH,nausea,hives, 12/09/16) gentamicin (Verified Allergy, Severe, EYES CLOSE WITH THE EYE DROPS, ) iodine (Verified Allergy, Severe, RASH, 12/09/16) povidone (Verified Allergy, Severe, RASH, 12/09/16) prochlorperazine (Verified Allergy, Severe, RASH, THROAT SWELLING AND DIFFICULTY SWALLOWING, 12/09/16) tetanus toxoid, adsorbed (Verified Allergy, Severe, SWELLING, SOB, 12/09/16) hydromorphone (Verified Allergy, Intermediate, Hallucinations, 12/09/16) aspirin (Verified Allergy, Unknown, interacts with medication Depakote, 12/09/16) nickel (Verified Allergy, Unknown, Rash, 12/09/16) hydromorphone HCl (Verified Adverse Reaction, Severe, Hallucinations, ) warfarin (Verified Adverse Reaction, Unknown, 12/09/16) States "I didn't get my PT tested and almost bled to " Uncoded Allergies: NICKEL (Allergy, Severe, RASH, 08/13/15) Meclizine (Allergy, Unknown, UNKNOWN, 08/13/15) Scheduled ([O2]) 3 L NASAL continously Acetaminophen (Tylenol Arthritis) 650 Mg Tablet.er 1,300 MG PO HS Acetaminophen (Tylenol Arthritis) 650 Mg Tablet.er 650 MG PO MORNING Atorvastatin (Lipitor) 40 Mg Tablet 40 MG PO HS Cholecalciferol (Vitamin D3) (Vitamin D3) 1,000 Unit Tab.chew 1,000 UNIT PO DAILY Clopidogrel Bisulfate (Plavix) 75 Mg Tablet 75 MG PO DAILY Divalproex DR (Depakote DR) 500 Mg Tablet 500 MG PO BID Swallowed whole without chewing to avoid local irritation of the mouth and throat. Fluoxetine (Prozac) 40 Mg Capsule 40 MG PO DAILY Furosemide (Furosemide) 40 Mg Tablet 20 MG PO 0830,16 Metoprolol Tartrate (Metoprolol Tartrate) 25 Mg Tablet 50 MG PO BIDWM Ranitidine (Ranitidine) 150 Mg Capsule 150 MG PO BID Scheduled PRN Ipratropium/Albuterol Sulfate (Iprat-Albut 0.5-3(2.5) mg/3 mL Inhalant Soln) 3 Ml Ampul.neb 3 ML IH QID PRN PRN For Shortness of Breath Mirtazapine (Remeron) 45 Mg Tablet 45 MG PO HS PRN PRN Insomnia Sennosides (Senna-Extra) 17.2 Mg Tablet 17.2 MG PO HS PRN PRN For Constipation General Time Seen by MD: 13:40 Chief Complaint Cough Hx Obtained From: Patient, Medical Language Specialist Arrived By: Walk-in Sudden in Onset?: No Recent Healthcare: Recent doctor visit, Recent hospitalization Similar Sx Previous: No Past Medical History Past Medical History Notes: Patient admitted November 14-2015 for pneumonia treated with Zithromax and Rocephin Developed diarrhea, C. difficile neck negative Past Medical History Anemia rheumatic fever History of aspiration pneumonia Atrial fibrillation on Plavix due to history of GI bleeding History of seizures on divalproex Reports: Congestive heart failure, Hyperlipidemia, Peptic ulcer disease Reports: Atrial fibrillation, Depression, Seizure disorder Past Surgical History 2 laminectomies 4 spinal fusions 2 bladder surgeries Bowel resection Bilateral hip replacements Reports: Hysterectomy, Tonsillectomy Family History Noncontributory Smoking History Former Smoker Social History Alcohol Use: 1-3 per week Drug Use: Denies drug use Other Social History: , Local resident Occupation Patient worked as a nurse in [place], [place], 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 Ambulatory Status Walker Review of Systems rapid heart rate per UC recent weight gain from retaining fluid Full Review of Systems Respiratory: Reports: Non-productive cough, Shortness of breath GI: Denies: Abdominal pain Musculoskeletal: Denies: Back pain, Neck pain Skin: Denies Rash Complete sys rev & neg: except as marked. Physical Exam Vital Signs Vital Signs Date Time Temp Pulse Resp B/P Pulse Ox O2 Delivery O2 Flow Rate FiO2 12/09/16 13:17 112 15 116/67 99 Nasal Cannula 3 Initial VS: Reviewed General/Constitutional: Awake, Alert Head / Eyes: Atraumatic, Normocephalic, PERRL, EOMI ENT: Atraumatic, Airway patent, Mucous membranes moist Neck: Atraumatic, Supple, Full range of motion Respiratory / Chest: Atraumatic, No respiratory distress bilateral rhonchi Cardiovascular: Heart rate NL, Regular rhythm, Heart sounds NL Abdomen: Atraumatic, Soft, Non-tender Back: Atraumatic, Full range of motion Upper Extremities Upper Extremity / MS: Atraumatic, Full range of motion Lower Extremity / Pelvis / MS: Atraumatic, Full range of motion Skin: Atraumatic, Color NL, No rash, Warm, Dry Neurologic: Oriented X3, Speech NL, No motor deficits, No sensory deficits Psychiatric: Affect NL, Mood NL Interpretation & Diagnostics ECG Interpretation ECG Interpretation: atrial fibrillation with a rate of 122 right axis deviation Time: 13:37 Interpreted by: ED physician X-Ray Chest Interpretation Chest Xray Interpretation: IMPRESSION: 1. Mild cardiomegaly as before, without acute cardiopulmonary disease. 2. Large retrocardiac hiatal hernia. Dictated by: Robin Corcoran M.D. on 12/09/2016 at 13:58 Approved by: Robin Corcoran M.D. on 12/09/2016 at 14:00 Interpretation / Wet Read by: Interpret - Radiologist Re-Eval/Medical Decision Med Decision/Clinical Course Most concerning for either pneumonia or aspiration. Currently awaiting lab evaluation. Care transferred to Dr. Pacheco Source of Hx: Old records Counseled Regarding: Diagnosis, Lab results Discharge & Departure Shift Change Sign-Out Patient Care Transferred: Yes Discussed Complaint(s): Yes Laboratory Evaluation: Ordered, not yet done Imaging Studies: Imaging discussed Primary Impression: Dyspnea Dyspnea type: unspecified Qualified Code: R06.00 - Dyspnea, unspecified Disposition: Home Discharge Condition All VS Reviewed: Yes Condition: Stable Referrals: Karen Ross MD (PCP) Care Transferred to: Dr. Pacheco Care Transferred at: 15:00 Jac Attestation Portions of this note were transcribed by Chino Cotto. I, Dr. Tate personally performed the history, physical exam and medical decision-making; I reviewed and confirmed the accuracy of the information in the transcribed note. Signed by: Jac Nuñez, 12/09/2016 and 1452. copies to: Karen Ross MD, Timothy S DO December 09, 2016 13:40 CHINO COTTO December 09, 2016 14:07
[2016-12-09] MEDS ORDERED: Albuterol-Ipratropium 3 mL Inhalation Solution NEB ONE ×2 (14:00→17:10)
--- NOTE | 2016-12-09 14:01 | DRSVH ---
PROCEDURE: X-RAY CHEST ONE VIEW, PORTABLE ([id number]) INDICATIONS: 86 year-old female with chest pain and shortness of breath. TECHNIQUE: One view of the chest was acquired. COMPARISON: [facility], CR, XR CHEST 1VW (PORTABLE), 12/03/2016, 6:13. [facility], CR, XR CHEST 2VW, 07/01/2016, 10:34. [facility], CR, XR CHEST 2VW, 06/13/2016, 11:38. FINDINGS: Surgical changes and devices: None. Lungs and pleura: No pleural effusions or pneumothorax. Lungs are clear. Mediastinum: There is large retrocardiac hiatal hernia as before. Mild cardiomegaly is unchanged. Th ere is aortic atherosclerosis. Bones and chest wall: No suspicious bony lesions. Overlying soft tissues appear unremarkable. IMPRESSION: 1. Mild cardiomegaly as before, without acute cardiopulmonary disease. 2. Large retrocardiac hiatal hernia. Dictated by: Robin Corcoran M.D. on 12/09/2016 at 13:58 Approved by: Robin Corcoran M.D. on 12/09/2016 at 14:00
[2016-12-09] MEDS: MeTOProlol 1 mg/mL 5 mL Inj IVPUSH SCH ×2 (15:01→15:22)
[2016-12-09 15:43] LABS: TROPONIN T < 0.010 ug/L (0.0-0.011)
[2016-12-09 15:52] LABS: Magnesium 1.9 mg/dL (1.6-2.6)
[2016-12-09 16:11] LABS: BASOPHILS % (AUTO) 0.1 % (0-3); EOSINOPHILS % (AUTO) 0.7 % (0-5); MONOCYTES % (AUTO) 10.4 % (4-12); Mean Corpuscular Hemoglobin 29.4 pg (27.0-35.0); Mean Corpuscular Volume 92.3 fL (81-100); NEUTROPHILS % (AUTO) 81.1 % (40-74); Platelet Count 229 bil/L (150-400)
[2016-12-09] MEDS ORDERED: Azithromycin Inj 500 MG in Dextrose 5% w/Vial Mate 250 ML IV ONE (17:10)
[2016-12-09] MEDS ORDERED: MeTOProlol 1 mg/mL 5 mL Inj IVPUSH ONE ×2 (17:10→17:55)
[2016-12-09] MEDS ORDERED: MethylprednisoLONE Sodium Succinate 62.5 mg/mL 2 mL Inj IVPUSH ONE (17:10)
--- NOTE | 2016-12-09 23:23 | PCM.HPMED ---
Subjective Date of Service December 09, 2016 Primary Provider: Admitting Physician: Eliot Fontaine MD Primary Care Physician: Karen Ross MD Attending Physician: Eliot Fontaine MD Admit Status: From the Emergency Department, Full Admit, [facility] Telemetry Chief Complaint: Coughing and shortness of breathe History of Present Illness: Jacqueline Rodriguez is a 86 yo female with Atrial fibrillation on Coumadin, Diastolic heart failure, Hypertension who presents to [facility] emergency department from Urgent care due to persistent cough. She was feeling well until this morning when she woke with a cough and shortness of breath. Cough was productive of thick whitish sputum. Also complained of pleuritic chest pain due to the coughing. Nebulizer treatment only briefly helped to relieve her symptoms. She denies fever or chills. No sick contacts. He caregiver saw who sick she looked and took her to the Urgent Care clinic She was was seen in Urgent Care, who noted tachycardia. Per pt's caregiver, the pt is frequently noncompliant with her medications and home oxygen 3 L. The pt was admitted on 12/03-12/05 records reviewed showed patient had chest pain. Echocardiogram showed heart function actually improved since her last echo. Plan to continue her metoprolol, Plavix and statin. Troponin negative. Dr. Marley has seen the patient and determined that this is purely musculoskeletal and no further workup indicated. Case discussed with Dr Pacheco, tachycardia noted and responding to Metoprolol IV. Neb treatment, Solu-Medrol and antibiotics initiated Review of Systems: Pertinent positives as noted in HPI. All other systems were reviewed and are negative Allergies Coded Allergies: Contrast Media (Verified Allergy, Severe, RASH, 12/09/16) chlorpromazine (Verified Allergy, Severe, RASH ORAL SWELLING, 12/09/16) RASH & SWELLING codeine (Verified Allergy, Severe, RASH,nausea,hives, 12/09/16) gentamicin (Verified Allergy, Severe, EYES CLOSE WITH THE EYE DROPS, ) iodine (Verified Allergy, Severe, RASH, 12/09/16) povidone (Verified Allergy, Severe, RASH, 12/09/16) prochlorperazine (Verified Allergy, Severe, RASH, THROAT SWELLING AND DIFFICULTY SWALLOWING, 12/09/16) tetanus toxoid, adsorbed (Verified Allergy, Severe, SWELLING, SOB, 12/09/16) hydromorphone (Verified Allergy, Intermediate, Hallucinations, 12/09/16) aspirin (Verified Allergy, Unknown, interacts with medication Depakote, 12/09/16) nickel (Verified Allergy, Unknown, Rash, 12/09/16) hydromorphone HCl (Verified Adverse Reaction, Severe, Hallucinations, ) warfarin (Verified Adverse Reaction, Unknown, 12/09/16) States "I didn't get my PT tested and almost bled to " Uncoded Allergies: NICKEL (Allergy, Severe, RASH, 08/13/15) Meclizine (Allergy, Unknown, UNKNOWN, 08/13/15) Home Medications From recent Discharge Summary [O2]) 3 L NASAL continously (Reported) Acetaminophen (Tylenol Arthritis) 650 Mg Tablet.er 1,300 MG PO HS (Reported) Acetaminophen (Tylenol Arthritis) 650 Mg Tablet.er 650 MG PO MORNING (Reported) Atorvastatin (Lipitor) 40 Mg Tablet 40 MG PO HS (Reported) Cholecalciferol (Vitamin D3) (Vitamin D3) 1,000 Unit Tab.chew 1,000 UNIT PO DAILY (Reported) Clopidogrel Bisulfate (Plavix) 75 Mg Tablet 75 MG PO DAILY Prescribed by: LOUISE PEREZ DO Divalproex (Depakote DR) 500 Mg Tablet 500 MG PO BID (Reported) Swallowed whole without chewing to avoid local irritation of the mouth and throat. Fluoxetine (Prozac) 40 Mg Capsule 40 MG PO DAILY (Reported) Furosemide (Lasix) 20 Mg Tablet 40 MG PO BID (Reported) Metoprolol Tartrate (Metoprolol Tartrate) 75 MG PO BIDWM (Reported) Ranitidine (Ranitidine) 150 Mg Capsule 150 MG PO BID (Reported) As needed Cyclobenzaprine (Cyclobenzaprine) 10 Mg Tablet 5 MG PO BID PRN PRN For Spasm Prescribed by: JAY US DO Ipratropium/Albuterol Sulfate (Iprat-Albut 0.5-3(2.5) mg/3 mL Inhalant Soln) 3 Ml Ampul.neb 3 ML IH QID PRN PRN For Shortness of Breath (Reported) Mirtazapine (Remeron) 45 Mg Tablet 45 MG PO HS PRN PRN Insomnia (Reported) Oxycodone (Roxicodone) 5 Mg Tablet 5 MG PO Q4H PRN PRN For Pain Prescribed by: TUYET SIMEON MD Polyethylene Glycol 3350 (Miralax) 17 Gm Powd.pack 17 GM PO DAILY PRN PRN For Constipation (Reported) Sennosides (Senna-Extra) 17.2 Mg Tablet 17.2 MG PO HS PRN PRN For Constipation ( Reported) PMH Diastolic congestive heart failure Peptic ulcer disease and Gastritis Atrial fibrillation, Chronic on Coumadin Rheumatic fever History of anemia History of pneumonia Depression Seizure disorder Hyperlipidemia . Surgical History 2 laminectomies 4 spinal fusions 2 bladder surgeries Bowel resection Bilat hip replacements Hysterectomy Appendectomy Tonsillectomy Family History She has 2 children who . One of them of cancer and necrotizing skin infection. The other one simply disappeared and presumed that she has full children total. Patient was adopted so parents medical history is unclear Social History Hx Alcohol Use: Yes (rarely) Hx Substance Use: No Hx Tobacco Use: Yes (quit in 1984) Smoking Status: Former Smoker Living Arrangement: with Family Exam Vital Signs Vital Sign - Last Date Time Temp Pulse Resp B/P Pulse Ox O2 Delivery O2 Flow Rate FiO2 12/09/16 19:20 130 22 118/68 96 Nasal Cannula 2 12/09/16 17:10 37.7 Exam General: Alert, Oriented X3, Cooperative, No acute Distress Eyes: PERRLA, Scleral Anicteric Mouth: Mouth Normal, Mucous Membranes Moist/[place] Neck: Supple, no Thyromegaly, trachea central. Chest & Lungs: Clear to auscultation & percussion, No adventitious breath sounds, no crackles, no wheeze Cardiovascular: Normal S1, Normal S2, No Murmurs/Rubs/Gallops, Regular Rate/ Rhythm, Murmur, Other (No JVD, no peripheral edema) Pulses: Radial (present and equal), Dorsalis Pedi (present and equal) Abdomen: Soft, Non-tender, Non-distended, Normoactive bowel tones. Musculoskeletal: Unremarkable. Normal range of motion, no swollen or erythematous joints Extremities: No edema, no cyanosis, no clubbing. Skin: No rashes. Warm and dry, no erythematous areas Neurological: Grossly neurologically intact, has generalized weakness, Normal Speech, Sensation Intact Lymphatic: Lymph nodes Cervical and Axillary not palpable. Lab and Diagnostics Labs Laboratory Tests Test 12/09/16 00:00 12/09/16 14:50 12/09/16 15:45 Pro-B-Type Natriuretic Peptide 2270pg/mL (0-738) Sodium Level 141mEq/L (134-144) Potassium Level 4.5mEq/L (3.5-5.2) Chloride Level 96mEq/L (97-108) Carbon Dioxide Level 24mmol/L (18-29) Blood Urea Nitrogen 19mg/dL (8-27) Creatinine 0.69mg/dL (0.57-1.00) Estimat Glomerular Filtration Rate 116mL/min (>59) Glucose Level 106mg/dL (60-99) Calcium Level 9.8mg/dL (8.5-10.1) Magnesium Level 1.9mg/dL (1.6-2.6) Total Bilirubin 0.2mg/dL (0.0-1.2) Aspartate Amino Transf (AST/SGOT) 28U/L (0-50) Alanine Aminotransferase (ALT/SGPT) 16U/L (0-32) Alkaline Phosphatase 74U/L (25-165) Troponin T < 0.010ug/L (0.0-0.011) Total Protein 7.4g/dL (6.4-8.4) Albumin 3.8g/dL (3.4-5.0) White Blood Count 12.6th/mm3 (3.8-10.1) Red Blood Count 4.53mil/mm3 (3.90-5.20) Hemoglobin 13.3g/dL (12.0-15.6) Hematocrit 41.8% (35.0-46.0) Mean Corpuscular Volume 92.3fL (81-100) Mean Corpuscular Hemoglobin 29.4pg (27.0-35.0) Mean Corpuscular Hemoglobin Concent 31.8% (32.0-37.0) Red Cell Distribution Width 16.8% (12.3-15.4) Platelet Count 229bil/L (150-400) Neutrophils (%) (Auto) 81.1% (40-74) Lymphocytes (%) (Auto) 7.2% (14-46) Monocytes (%) (Auto) 10.4% (4-12) Eosinophils (%) (Auto) 0.7% (0-5) Basophils (%) (Auto) 0.1% (0-3) Lactic Acid Level 2.5mmol/L (0.4-2.0) Procalcitonin 0.05ng/mL (0.00-0.08) Microbiology 12/09/16 Blood Culture, Received Pending Result Diagram: 12/09/16 1545 12/09/16 1450 X-Rays, CTs and MRIs X-RAY CHEST ONE VIEW, PORTABLE 12/09 IMPRESSION: 1. Mild cardiomegaly as before, without acute cardiopulmonary disease. 2. Large retrocardiac hiatal hernia. Dictated by: Robin Corcoran M.D. on 12/09/2016 at 13:58 Approved by: Robin Corcoran M.D. on 12/09/2016 at 14:00 Assessment & Plan Jacqueline Rodriguez is a 86 yo female with Atrial fibrillation on Coumadin, Diastolic heart failure, Hypertension who presents to [facility] emergency department from Urgent care due to persistent cough. 1. Acute on Chronic Hypoxic Respiratory Failure due to COPD exacerbation. Present on admission Likely triggered by a Viral Respiratory infection or possible healthcare associated pneumonia. Differential diagnosis includes Pulmonary embolism - continue oxygen supplementation with target 88-92% - Steroids: Solu-Medrol 125 mg IV x1, Prednisone 40 mg daily - DuoNeb scheduled - no antibiotics will be continued as procalcitonin negative - consider BIPAP if worsening, note patient is DNI 2. Atrial fibrillation with rapid ventricular response. Present on admission Triggered by the coughing and respiratory distress. Chronic issues and not currently on anticoagulations due to bleeding risk - monitor on telemetry - continuing Metoprolol 75 mg bid - continuing Plavix 75 mg daily 3 Lactic acidosis. Present on admission Due to tissue hypoxia and Albuterol - trending till normal 4 Seizures, chronic - Continue Depakote 500 mg bid 5 Depression chronic - continue Prozac 40 mg daily 6 Dyslipidemia - continue Atorvastatin 40 mg HS - Acetaminophen as needed for mild pain/fever/headache - Bowel regimen as needed - Antiemetic as needed Patient admitted under inpatient status with expected length of stay > 2 midnights for severity of present symptoms, complexities of treatment plan and risk for adverse event . Resuscitation Status: DNR/DNI:Do Not Resuscitate/Intubate Eliot Fontaine MD December 09, 2016 19:33 Ranitidine (Ranitidine) 150 Mg Capsule 150 MG PO BID (Reported) As needed Cyclobenzaprine (Cyclobenzaprine) 10 Mg Tablet 5 MG PO BID PRN PRN For Spasm Prescribed by: JAY US DO Ipratropium/Albuterol Sulfate (Iprat-Albut 0.5-3(2.5) mg/3 mL Inhalant Soln) 3 Ml Ampul.neb 3 ML IH QID PRN PRN For Shortness of Breath (Reported) Mirtazapine (Remeron) 45 Mg Tablet 45 MG PO HS PRN PRN Insomnia (Reported) Oxycodone (Roxicodone) 5 Mg Tablet 5 MG PO Q4H PRN PRN For Pain Prescribed by: TUYET SIMEON MD Polyethylene Glycol 3350 (Miralax) 17 Gm Powd.pack 17 GM PO DAILY PRN PRN For Constipation (Reported) Sennosides (Senna-Extra) 17.2 Mg Tablet 17.2 MG PO HS PRN PRN For Constipation ( Reported) Resuscitation Status: DNR/DNI:Do Not Resuscitate/Intubate Eliot Fontaine MD December 09, 2016 19:33
[2016-12-09] MEDS: Albuterol-Ipratropium 3 mL Inhalation Solution NEB SCH (23:54)
[2016-12-10] VITALS (13 sets, daily range): BP systolic 92–139; BP diastolic 55–67; PULSE 92–115; RESP 18–25; O2SAT 92–100
[2016-12-10] MEDS: 0.9% Sodium Chloride 1,000 ML IV SCH ×3 (00:47→20:36)
[2016-12-10] MEDS: Albuterol-Ipratropium 3 mL Inhalation Solution NEB SCH ×5 (05:14→21:27)
--- NOTE | 2016-12-10 07:23 | NUR ---
Admit/Pain/Tele Pt admitted to room 2027 early in shift. MD in room to assess when pt complaining of chest/rib achiness. stated no need for EKG as this pain is mostly w/ cough and pleuritic. Tylenol ordered and not effective, pain 03/12, MD notified and ordered oxycodone which pt stated was effective at relieving pain though it was still 5/10 only when coughing. Tessalon also given for very persistent barking cough, and nebs q4 ordered. Pt on 3L NC. Pt in Afib 120s-140s on admit, MD aware, metoprolol held d/t BP 90s/50s, HR somewhat improved to 100s-120s
[2016-12-10 10:15] LABS: BASOPHILS % (AUTO) 0.1 % (0-3); EOSINOPHILS % (AUTO) 0 % (0-5); MONOCYTES % (AUTO) 6.1 % (4-12); Mean Corpuscular Hemoglobin 29.4 pg (27.0-35.0); Mean Corpuscular Volume 92.2 fL (81-100); NEUTROPHILS % (AUTO) 80.5 % (40-74); Platelet Count 201 bil/L (150-400)
[2016-12-10 10:38] LABS: INR 0.95 ratio
--- NOTE | 2016-12-10 12:49 | NUR ---
spiritual care: pt request conversational visit. pt reflected on chest pain/cough and her recent medical experiences. (was in hospital few days ago) pt sifted through thoughts regarding family communication and requested assistance contacting her friend. Pt weary, able to make needs known. Prayer
[2016-12-10] MEDS ORDERED: Albuterol 1.25 mg/3 mL Inhalation Solution NEB PRN ×2 (13:50→15:50)
--- NOTE | 2016-12-10 14:57 | PCM.PNMED ---
Subjective Date of Service December 10, 2016 Subjective Jacqueline Rodriguez is a 86-year-old female with atrial fibrillation (reportedly stopped Coumadin due to GI bleed), diastolic heart failure and hypertension who sent to the emergency department from Urgent care due to persistent cough and increasing shortness of breath. Admitted for acute respiratory failure, hypotension and atrial fibrillation with rapid ventricular response. Admitted to [facility] with telemetry. HR in low 100s-140. Per nursing, on arrival to the floor patient reported chest/rib tightness and discomfort, was given Tylenol without relief. Pain relieved with oxycodone. This morning patient continues to note pleuritic chest pain and persistent painful coughing. She denies prior diagnosis of COPD and states that her cough started yesterday. Associated symptoms include fatigue, lightheadedness and one elevated temperature noted at Urgent Care. She denies fever, chills, nausea, vomiting or sick contacts. Exam Vital Signs Vital Sign - Last Date Time Temp Pulse Resp B/P Pulse Ox O2 Delivery O2 Flow Rate FiO2 12/10/16 05:14 115 18 95 Nasal Cannula 3.00 12/10/16 04:12 36.3 92/58 Intake and Output 12/09/16 12/09/16 12/10/16 Cumulative From/Thru 15:00 23:00 07:00 12/09/16 13:17 - 12/10/16 06:14 Intake Total 1050 ml 1050 ml Balance 1050 ml 1050 ml Intake Oral 550 ml 550 ml IV Total 500 ml 500 ml # Voids 3 3 # Bowel Movements 0 0 Exam General: Ill-appearing, non-toxic, elderly female in mild respiratory distress and coughing. HEENT: Normocephalic, atraumatic. PERRLA, anicteric sclerae, moist conjunctivae , oral mucosa moist/pink Neck: Supple with full range of motion. No jugular venous distension. Cardiovascular: Tachycardic, irregularly irregular rhythm with no murmurs, rubs , or gallops appreciated Pulmonary: Decreased air movement, lung sounds coarse with mild diffuse crackles no wheezing. No use of accessory muscles. Abdomen: Bowel tones present. Soft, nontender, nondistended. No masses appreciated. Extremities: No clubbing, cyanosis,or edema. Skin: Normal temperature, turgor, and texture; no rash or ulcerations. Neurological: Alert and oriented to person, place and time. No focal deficits. Psychiatric: Normal mood and affect. Appropriately interactive. IVs and Medications Medications Reviewed: Medications were reviewed in detail Lab and Diagnostics Laboratory Tests Test 12/09/16 14:50 12/09/16 15:45 12/09/16 23:46 12/10/16 03:05 Sodium Level 141mEq/L (134-144) Potassium Level 4.5mEq/L (3.5-5.2) Chloride Level 96mEq/L (97-108) Carbon Dioxide Level 24mmol/L (18-29) Blood Urea Nitrogen 19mg/dL (8-27) Creatinine 0.69mg/dL (0.57-1.00) Estimat Glomerular Filtration Rate 116mL/min (>59) Glucose Level 106mg/dL (60-99) Calcium Level 9.8mg/dL (8.5-10.1) Magnesium Level 1.9mg/dL (1.6-2.6) Total Bilirubin 0.2mg/dL (0.0-1.2) Aspartate Amino Transf (AST/SGOT) 28U/L (0-50) Alanine Aminotransferase (ALT/SGPT) 16U/L (0-32) Alkaline Phosphatase 74U/L (25-165) Troponin T < 0.010ug/L (0.0-0.011) Total Protein 7.4g/dL (6.4-8.4) Albumin 3.8g/dL (3.4-5.0) White Blood Count 12.6th/mm3 (3.8-10.1) Red Blood Count 4.53mil/mm3 (3.90-5.20) Hemoglobin 13.3g/dL (12.0-15.6) Hematocrit 41.8% (35.0-46.0) Mean Corpuscular Volume 92.3fL (81-100) Mean Corpuscular Hemoglobin 29.4pg (27.0-35.0) Mean Corpuscular Hemoglobin Concent 31.8% (32.0-37.0) Red Cell Distribution Width 16.8% (12.3-15.4) Platelet Count 229bil/L (150-400) Neutrophils (%) (Auto) 81.1% (40-74) Lymphocytes (%) (Auto) 7.2% (14-46) Monocytes (%) (Auto) 10.4% (4-12) Eosinophils (%) (Auto) 0.7% (0-5) Basophils (%) (Auto) 0.1% (0-3) Lactic Acid Level 2.5mmol/L (0.4-2.0) 4.8mmol/L (0.4-2.0) 4.0mmol/L (0.4-2.0) Procalcitonin 0.05ng/mL (0.00-0.08) Test 12/10/16 03:15 12/10/16 10:08 12/10/16 14:00 Hold Urine Received (Received) White Blood Count 10.6th/mm3 (3.8-10.1) Red Blood Count 3.95mil/mm3 (3.90-5.20) Hemoglobin 11.6g/dL (12.0-15.6) Hematocrit 36.4% (35.0-46.0) Mean Corpuscular Volume 92.2fL (81-100) Mean Corpuscular Hemoglobin 29.4pg (27.0-35.0) Mean Corpuscular Hemoglobin Concent 31.9% (32.0-37.0) Red Cell Distribution Width 16.9% (12.3-15.4) Platelet Count 201bil/L (150-400) Neutrophils (%) (Auto) 80.5% (40-74) Lymphocytes (%) (Auto) 13.0% (14-46) Monocytes (%) (Auto) 6.1% (4-12) Eosinophils (%) (Auto) 0% (0-5) Basophils (%) (Auto) 0.1% (0-3) Prothrombin Time 10.2sec (8.1-12.5) Prothromb Time International Ratio 0.95ratio Activated Partial Thromboplast Time 25.2sec (22.8-33.0) D-Dimer 1.47mg/L FEU (<0.50) Sodium Level 139mEq/L (134-144) Potassium Level 3.9mEq/L (3.5-5.2) Chloride Level 96mEq/L (97-108) Carbon Dioxide Level 28mmol/L (18-29) Blood Urea Nitrogen 17mg/dL (8-27) Creatinine 0.55mg/dL (0.57-1.00) Estimat Glomerular Filtration Rate 150mL/min (>59) Glucose Level 163mg/dL (60-99) Lactic Acid Level 3.0mmol/L (0.4-2.0) 2.8mmol/L (0.4-2.0) Calcium Level 9.2mg/dL (8.5-10.1) Magnesium Level 2.0mg/dL (1.6-2.6) Result Diagram: 12/09/16 1545 12/09/16 1450 Microbiology 12/09/16 Blood Culture-pending 12/10/16 Resp viral PCR-pending X-Rays, CTs and MRIs (12/09/16) X-RAY CHEST ONE VIEW, PORTABLE IMPRESSION: 1. Mild cardiomegaly as before, without acute cardiopulmonary disease. 2. Large retrocardiac hiatal hernia. Dictated and approved by: Robin Corcoran M.D. on 12/09/2016 at 13:58 Assessment & Plan Jacqueline Rodriguez is a 86-year-old female with atrial fibrillation not on Coumadin, diastolic heart failure and hypertension who presented with increasing shortness of breath and productive cough. Admitted for acute respiratory failure , hypotension and atrial fibrillation with rapid ventricular response. 1. Acute respiratory failure. Present on admission. Active. -Uncertain etiology, potentially viral respiratory infection, COPD, healthcare associated pneumonia (patient discharged 12/05/16) or less likely pulmonary embolism. -Patient denies diagnosis of COPD, quit smoking in 1984 and states nebulizers were prescribed following prior aspiration pneumonia. -Lactic acid elevated 4.8 and trending down (3.0). Otherwise clinically not consistent with bacterial process. Procalcitonin negative, normal WBC, patient denies fevers, chills. -Chest xray negative for acute process. -Respiratory viral PCR, pending -D-dimer, pending -DuoNeb q4h, albuterol q2h prn -Trend lactic acid until normalizes -Continue IV fluids, cautiously due to hx of CHF -Follow CBC, repeat procalcitonin -Supplemental oxygen with consideration for Bipap if needed, note patient is DNI. 2. Atrial fibrillation with rapid ventricular response, chronic. Present on admission. Active. -Likely triggered by the coughing and respiratory distress. HR in low 100s-140. -Previously anticoagulated on Coumadin, reportedly discontinued due to bleeding risk. -Continue clopidogrel and metoprolol 50mg bid (previously on 75mg bid) 3. Lactic acidosis. Present on admission. Active -Likely due to tissue hypoxia secondary to respiratory distress/coughing and Albuterol -4.8 on admission, trending down. -Trend until normalizes 4 Seizures, chronic. Present on admission. Presumed stable. -Continue Depakote 500 mg bid 5. Hyperlipidemia, chronic. Present on admission. Presumed stable. -Continue Atorvastatin 40 mg daily 6. Depression chronic. Present on admission. Presumed stable. -Continue fluoxetine and mirtazapine. 7. Arthritis, chronic. Present on admission. Presumed stable. - Continue Acetaminophen 8. History of chronic anemia. Present on admission. Presumed stable. -Hb 13, Hct 39.5 -Monitor CBC - Acetaminophen as needed for mild pain/fever/headache - Bowel regimen as needed - Antiemetic as needed Disposition: Patient will likely need 1-2 days of inpatient monitoring until respiratory status improves. Pain Evaluation: Adequate Pain Control VTE Mechanical Devices: Intermittant Pneumatic CD Resuscitation Status: DNR/DNI:Do Not Resuscitate/Intubate Attending Statement The patient was seen and examined together with Resident/House-staff on 12/10/16 and I agree with the history, exam and plan as outlined in the note above. Donna Trejo DO December 10, 2016 08:13 Nura Martínez December 12, 2016 17:00
--- NOTE | 2016-12-10 16:22 | NUR ---
Respiratory status Cough and pain associated with cough have gotten more persistent throughout shift. Still coughing up clear-white thick mucus. Crackles and wheezes heard throughout lungs. Sats staying consistent around mid 90s with 3L O2. Pain has been managed through Tessalon Pearls, oxycodone q4, nebulizers, and hot tea. Somewhat effective. Quality of voice deteriorating. PRN nebs added to treatment plan. Pt stating "I can't take this anymore". MD aware.
--- NOTE | 2016-12-10 16:25 | NUR ---
Social Work-attempted initial assessment: Data:EMR Reviewed. Pt is a 86 y/o female who was admitted on 12/09/16 for COPD exacerbation per H&P. Pt's insurance is [facility] and [employer] [place] and PCP is Karen Ross MD. EMR Reviewed. SW attempted to see pt, but RN In room. Pt is a readmission and was sent home with services. SW called Talha with [facility] Who confirms that pt declined services after discharge. SW to follow up with assessment when appropriate. SW will continue to follow. Assessment:Pt who is independent at baseline. Plan:SW to follow up tomorrow and complete assessment. SW will continue to follow. ALDO Blanton
--- NOTE | 2016-12-10 18:10 | NUR ---
Case Management: Explained RAUSCH to patient at 1715, all questions answered. Patient refused to sign the RAUSCH stating she wanted to speak with the MD first as she believed she was an Inpatient. I noted this on the RAUSCH and placed it in the chart. Marybeth Brown RN
[2016-12-10] MEDS: guaiFENesin DM 200-20 mg/10 mL Syrup PO PRN (20:34)
[2016-12-11] VITALS (21 sets, daily range): BP systolic 84–133; BP diastolic 49–74; PULSE 104–132; RESP 18–26; O2SAT 91–99
[2016-12-11] MEDS: Albuterol-Ipratropium 3 mL Inhalation Solution NEB SCH ×7 (00:36→23:50)
[2016-12-11] MEDS: guaiFENesin DM 200-20 mg/10 mL Syrup PO PRN ×4 (01:53→20:43)
--- NOTE | 2016-12-11 02:54 | ABG ---
DateTimeAnalyzed 02:51:00 -_ pH ____7.397 - 7.350 7.450 pCO2 ___47.3__ -mmHg 35.0 45.0 pO2 ___56.9__ -mmHg 69.0 116 HCO3- ___28.5__ -mmol/L 22.0 26.0 ABE ____3.6__ -mmol/L -2.0 2.0 tHb ___10.6__ -g/dL O2Hb ___87.1__ -% COHb ____1.2__ -% MetHb ____1.1__ -% sO2 ___89.1__ -% FIO2 ___80.0__ -% Drawn By MK - Date/Time Notified____ 02:54:00 -_ Oxygen Device 1 __oxymask - Notified By MK - B 754 -mmHg tO2 ___13.0__ -Vol% Nigel test _Positive -
[2016-12-11] MEDS ORDERED: Furosemide 10 mg/mL 2 mL Inj IVPUSH ONE (02:55)
[2016-12-11 05:18] LABS: BASOPHILS % (AUTO) 0.1 % (0-3); EOSINOPHILS % (AUTO) 7.8 % (0-5); MONOCYTES % (AUTO) 9.9 % (4-12); Mean Corpuscular Hemoglobin 30.1 pg (27.0-35.0); Mean Corpuscular Volume 92.4 fL (81-100); Platelet Count 205 bil/L (150-400)
[2016-12-11] MEDS ORDERED: Furosemide 10 mg/mL 2 mL Inj IV ONE (05:20)
--- NOTE | 2016-12-11 06:52 | NUR ---
Respiratory Distress/Tele/Cough Pt noted to sound more congested at start of shift, lungs very course and wet sounding. Lactic had normalized. Pt w/ hx of CHF and continued w/ NS fluids @100. paged w/ this info and ordered to reduce rate to 50cc/hr. Pt reassessed and seemed to progressively sound more wet and began to have a very gargled sound in her upper airway w/ increased work of breathing. Fluids stopped and paged to see if Lasix should be ordered. MD stated to DC fluids for now and see if this helped. Very soon after pt started to desat quickly, O2 turned up to 13-15L oxymask. RT and MD paged. Pt given neb treatment and RT did an ABG resulting in order for high flow O2. also ordered 20mg IV Lasix, mccord insertion and PRN NT suctioning to help w/ secretions. RT had to increase high flow for a short period after mccord inserted. ordered additional 20mg IV Lasix. Pt had multiple incontinent briefs and put out 1400cc pale urine in mccord in just a few hours. Pt sounds less gargled though still very course. High flow turned down to 60% and 40L. Pt monitored w/ AUDIOPROSTHOLOGIST throughout night. Pt had a very slight pink tinge to sputum on a couple occasions, aware. Tele Afib 100s-120s most of night until pt having respiratory problems, then HR mostly 120s-130s, MD aware. No further orders at this time. Pt continues w/ persistent barking and painful cough. Given PRN oxycodone and cough medications.
[2016-12-11] MEDS ORDERED: Furosemide 10 mg/mL 4 mL Inj IVPUSH ONE (09:25)
[2016-12-11] MEDS ORDERED: diphenhydrAMINE 50 mg Capsule PO ONE ×2 (09:30→23:50)
[2016-12-11] MEDS: predniSONE 20 mg Tablet PO SCH ×3 (09:42→21:35)
--- NOTE | 2016-12-11 10:24 | PCM.PNMED ---
Subjective Date of Service December 11, 2016 Subjective Jacqueline Rodriguez is a 86-year-old female with atrial fibrillation (reportedly stopped Coumadin due to GI bleed), diastolic heart failure and hypertension who sent to the emergency department from Urgent care due to persistent cough and increasing shortness of breath. Admitted for acute respiratory failure, hypotension and atrial fibrillation with rapid ventricular response. Patient with persistent cough productive of clear-white mucus and increased O2 requirement. Per nursing, lungs coarse with diffuse crackles and O2 increased to 13-15L oxymask to maintain O2 sats. She does have a history of diastolic heart failure and IV fluids were stopped at that time. She then received 2 doses of IV lasix for total of 40mg and was started on high flow O2 due to increasing respiratory distress and hypoxia. 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 Exam Vital Signs Vital Sign - Last Date Time Temp Pulse Resp B/P Pulse Ox O2 Delivery O2 Flow Rate FiO2 12/11/16 07:32 Supplement Oxygen 12/11/16 07:32 37.2 130 18 129/69 92 60 12/11/16 05:16 40 Intake and Output 12/10/16 12/10/16 12/11/16 Cumulative From/Thru 15:00 23:00 07:00 12/09/16 13:17 - 12/11/16 05:23 Intake Total 663 ml 1193 ml 914 ml 3820 ml Output Total 125 ml 1550 ml 1675 ml Balance 663 ml 1068 ml -636 ml 2145 ml Intake Oral 300 ml 200 ml 1050 ml IV Total 663 ml 893 ml 714 ml 2770 ml Output Urine Total 125 ml 1550 ml 1675 ml # Voids 2 4 9 # Bowel Movements 0 Exam General: Ill-appearing, non-toxic, elderly female in mild respiratory distress and coughing. High flow O2. HEENT: Normocephalic, atraumatic. PERRLA, anicteric sclerae, moist conjunctivae , oral mucosa moist/pink Neck: Supple with full range of motion. No jugular venous distension. Cardiovascular: Tachycardic, irregularly irregular rhythm with no murmurs, rubs , or gallops appreciated Pulmonary: Lungs coarse with diffuse crackles and mild wheezing.No use of accessory muscles. Abdomen: Bowel tones present. Soft, nontender, nondistended. Extremities: Trace edema ankles bilaterally, no clubbing or cyanosis. Skin: Normal temperature, turgor, and texture; no rash or ulcerations. Neurological: Alert and oriented to person, place and time. No focal deficits. Psychiatric: Normal mood and affect. Appropriately interactive. IVs and Medications Medications Reviewed: Medications were reviewed in detail Lab and Diagnostics Laboratory Tests Test 12/10/16 10:08 12/10/16 14:00 12/10/16 19:26 12/11/16 05:10 White Blood Count 10.6th/mm3 (3.8-10.1) 9.0th/mm3 (3.8-10.1) Red Blood Count 3.95mil/mm3 (3.90-5.20) 3.96mil/mm3 (3.90-5.20) Hemoglobin 11.6g/dL (12.0-15.6) 11.9g/dL (12.0-15.6) Hematocrit 36.4% (35.0-46.0) 36.6% (35.0-46.0) Mean Corpuscular Volume 92.2fL (81-100) 92.4fL (81-100) Mean Corpuscular Hemoglobin 29.4pg (27.0-35.0) 30.1pg (27.0-35.0) Mean Corpuscular Hemoglobin Concent 31.9% (32.0-37.0) 32.5% (32.0-37.0) Red Cell Distribution Width 16.9% (12.3-15.4) 17.4% (12.3-15.4) Platelet Count 201bil/L (150-400) 205bil/L (150-400) Neutrophils (%) (Auto) 80.5% (40-74) 65.0% (40-74) Lymphocytes (%) (Auto) 13.0% (14-46) 16.5% (14-46) Monocytes (%) (Auto) 6.1% (4-12) 9.9% (4-12) Eosinophils (%) (Auto) 0% (0-5) 7.8% (0-5) Basophils (%) (Auto) 0.1% (0-3) 0.1% (0-3) Prothrombin Time 10.2sec (8.1-12.5) Prothromb Time International Ratio 0.95ratio Activated Partial Thromboplast Time 25.2sec (22.8-33.0) D-Dimer 1.47mg/L FEU (<0.50) Sodium Level 139mEq/L (134-144) Potassium Level 3.9mEq/L (3.5-5.2) Chloride Level 96mEq/L (97-108) Carbon Dioxide Level 28mmol/L (18-29) Blood Urea Nitrogen 17mg/dL (8-27) Creatinine 0.55mg/dL (0.57-1.00) Estimat Glomerular Filtration Rate 150mL/min (>59) Glucose Level 163mg/dL (60-99) Lactic Acid Level 3.0mmol/L (0.4-2.0) 2.8mmol/L (0.4-2.0) 1.8mmol/L (0.4-2.0) 2.7mmol/L (0.4-2.0) Calcium Level 9.2mg/dL (8.5-10.1) Magnesium Level 2.0mg/dL (1.6-2.6) Hematology Comments Test 12/11/16 08:00 Sodium Level 144mEq/L (134-144) Potassium Level 4.3mEq/L (3.5-5.2) Chloride Level 100mEq/L (97-108) Carbon Dioxide Level 29mmol/L (18-29) Blood Urea Nitrogen 17mg/dL (8-27) Creatinine 0.54mg/dL (0.57-1.00) Estimat Glomerular Filtration Rate 154mL/min (>59) Glucose Level 110mg/dL (60-99) Lactic Acid Level 2.8mmol/L (0.4-2.0) Calcium Level 9.1mg/dL (8.5-10.1) Total Bilirubin 0.5mg/dL (0.0-1.2) Aspartate Amino Transf (AST/SGOT) 35U/L (0-50) Alanine Aminotransferase (ALT/SGPT) 14U/L (0-32) Alkaline Phosphatase 60U/L (25-165) Total Protein 6.6g/dL (6.4-8.4) Albumin 3.7g/dL (3.4-5.0) Procalcitonin 0.17ng/mL (0.00-0.08) Result Diagram: 12/11/16 0510 12/10/16 1008 Microbiology 12/09/16 Blood Culture -no growth after 24hrs 12/10/16 Resp viral PCR- negative X-Rays, CTs and MRIs (12/09/16) X-RAY CHEST ONE VIEW, PORTABLE IMPRESSION: 1. Mild cardiomegaly as before, without acute cardiopulmonary disease. 2. Large retrocardiac hiatal hernia. Dictated and approved by: Robin Corcoran M.D. on 12/09/2016 at 13:58 Cardiac Echo Impressions (12/04/16) ECHOCARDIOGRAM REPORT Interpretation Summary There is a prominent hiatal hernia behind the left atrium. There is mild- moderate concentric left ventricular hypertrophy. Left ventricular systolic function is normal without focal wall motion abnormalities. The ejection fraction is estimated to be 55-60%. LVEF has remained stable. The right ventricle grossly appears normal in size with probable normal systolic function. The right ventricular systolic pressure is estimated at 24mmHg assuming a right atrial pressure of 3 mm Hg. Compared to the prior echo exam, there has been a decrease in the severity of pulmonary hypertension. The left atrium is severely dilated. The right atrium is mildly dilated. There is mild mitral regurgitation. MR has decreased since prior study. There is no other significant valvular heart disease. The aortic root is normal size. Reading Physician:PM Assessment & Plan Jacqueline Rodriguez is a 86-year-old female with atrial fibrillation (reportedly stopped Coumadin due to GI bleed), diastolic heart failure and hypertension who sent to the emergency department from Urgent care due to persistent cough and increasing shortness of breath. Admitted for acute respiratory failure, hypotension and atrial fibrillation with rapid ventricular response. 1. Acute respiratory failure. Present on admission. Active. -Uncertain etiology. Potentially viral respiratory infection, COPD, HCAP ( patient discharged 12/05/16) or less likely PE. Now with component of fluid overload. -Patient denies diagnosis of COPD, quit smoking in 1984 and states nebulizers were prescribed following prior aspiration pneumonia. -Lactic acid elevated 4.8, normalized overnight but up this morning (2.8). Otherwise clinically not consistent with bacterial process. Procalcitonin negative, normal WBC, patient denies fevers, chills. -Chest xray negative for acute process. -Respiratory viral PCR, negative -D-dimer elevated, 1.47. CT angio ordered. Pt has contrast allergy (rash) will pre-treat. -DuoNeb q4h, albuterol q2h prn -Trend lactic acid until normalizes -Hold IV fluids. -Follow CBC, repeat procalcitonin -Supplemental oxygen with consideration for Bipap if needed, note patient is DNI. 2. Atrial fibrillation with rapid ventricular response, chronic. Present on admission. Active. -Likely triggered by the coughing and respiratory distress. HR in low 100s-140. -Previously anticoagulated on Coumadin, reportedly discontinued due to bleeding risk. -Continue clopidogrel and metoprolol 50mg bid (previously on 75mg bid) 3. Congestive heart failure, diastolic. Present on admission. Presumed stable. -Patient hypotensive (SBP 80s-90s, DBP 50-60) at presentation and started on IV fluids, diuretic held. Currently fluid overloaded. -ECHO (12/04/16) with stable EF of 55-60% and decrease in severity of pulmonary hypertension and mitral regurgitation compared to prior ECHO (/). -IV fluids stopped. Patient currently normotensive s/p IV lasix 20mg x2 overnight. -Continue home metoprolol -Diuresis, lasix IV 40mg daily. -Monitor I/Os 4. Lactic acidosis. Present on admission. Active -Likely due to tissue hypoxia secondary to respiratory distress/coughing and Albuterol -4.8 on admission, trended down but up overnight (2.8) -Trend until normalizes 5 Seizures, chronic. Present on admission. Presumed stable. -Continue Depakote 500 mg bid 6. Hyperlipidemia, chronic. Present on admission. Presumed stable. -Continue Atorvastatin 40 mg daily 7. Depression chronic. Present on admission. Presumed stable. -Continue fluoxetine and mirtazapine. 8. Arthritis, chronic. Present on admission. Presumed stable. - Continue Acetaminophen 9. History of chronic anemia. Present on admission. Presumed stable. -Hb 13, Hct 39.5 -Monitor CBC - Acetaminophen as needed for mild pain/fever/headache - Bowel regimen as needed - Antiemetic as needed Disposition: Patient will likely need 1-2 more days of inpatient monitoring until respiratory status improves. VTE Prophylaxis: Sub-Q Heparin (Unfractionated) VTE Mechanical Devices: Intermittant Pneumatic CD Resuscitation Status: DNR/DNI:Do Not Resuscitate/Intubate Attending Statement The patient was seen and examined together with Resident/House-staff on 12/11/16 and I agree with the history, exam and plan as outlined in the note above. Donna Trejo DO December 11, 2016 07:46 Nura Martínez December 25, 2016 17:17
--- NOTE | 2016-12-11 13:31 | NUR ---
Social Work: Initial Assessment D: Per EMR review, pt is an 86 year old female admitted for COPD Exacerbation, Afib with RVR. Pt is Medicare with [employer] supplement; pt has no LTC insurance or VA benefits. PCP is Karen Ross MD. NOK Is MARTINA Rodriguez, son, . Advanced directives completed but not on file- WHEEL MOLDER requested these from pt. Readmit score is high, 5/8. Pt was discharged within the last month, home with [facility]. WHEEL MOLDER met with pt at bedside. Sw role explained and contact info provided. See initial assessment. Pt lives in a mobile home with ramp access in [place]. She uses a FWW at baseline. Pt had previously agreed to services with [facility] but declined them post-discharge. Pt continues to decline this service and is also declining SNF at this time. Pt is currently on High Flow . Pt states that she has private pay caregivers through [employer] 3-6 hours a day 6 days a week. Pt states that her son will transport her home when she is ready. A: Pt who is I at baseline and lives at home alone. P: Evolving; WHEEL MOLDER to continue to follow pt's clinical progress. Pt wishes to go home with her private pay caregivers. ALDO Valentin Addendum: 12/11/16 at 1339 by STACY KELLER SS Amended: Links added.
--- NOTE | 2016-12-11 15:50 | NUR ---
Respiratory Patient on Hi Flow O2 55L and 60% FiO2, SpO2 mid 90s, however SpO2 drops to 80s with talking/coughing/activity.Persistent wet productive cough, pt c/o 8/10 pain with coughing. PRN medications provide minimal relief from cough/pain. Lungs sounds are wet/crackles. IV lasix given this AM, patient has had 1.5L out through [facility]. Will continue to monitor.
--- NOTE | 2016-12-11 16:18 | NUR ---
Case Management: Pt awake, sleepy. Will try to explain IMM later when more wakeful. Akila Jones RN Addendum: 12/11/16 at 1745 by AKILA JONES IMM explained to patient at 1715, all questions answered. Signed original placed in chart, copy given to patient. Akila Jones RN
--- NOTE | 2016-12-11 23:09 | NUR ---
IV ACCESS Pt did not have good IV access for CT angio scheduled for 2244. This RN and 3 other nursing staff members attempted access with no success. Pre-treatment for contrast allergy will re-start in the AM and CT will be rescheduled for tomorrow evening. Addendum: 12/12/16 at 0528 by GREGORY TEJADA RN Pt's IV infiltrated at the start of a 250ml NS bolus and was DC'd. No IV access at this time. IV therapy to be notified BRAYDEN.
[2016-12-11] MEDS ORDERED: predniSONE 20 mg Tablet PO SCH (23:50)
[2016-12-11] MEDS ORDERED: 0.9% Sodium Chloride 250 ML IV ONE (23:55)
[2016-12-12] VITALS (12 sets, daily range): BP systolic 92–135; BP diastolic 54–72; PULSE 107–129; RESP 18–20; O2SAT 94–99
[2016-12-12] MEDS ORDERED: 0.9% Sodium Chloride 250 ML ONE
[2016-12-12] MEDS: Sodium Chloride LOK Flush 10 mL Syringe IVFLUSH SCH ×4 (00:06→16:30)
--- NOTE | 2016-12-12 00:30 | NUR ---
HEART RATE Pt's HR was 130-150's sustained, BP 106/66. Gave a one time dose 25mg Metoprolol and monitored pressures. Pressures dropped to 84/49, 250ml NS bolus ordered. Pt received 20ml before IV infiltrated. Pressures were stable at 107/62, bolus on hold.
[2016-12-12] MEDS: Albuterol-Ipratropium 3 mL Inhalation Solution NEB SCH (04:10)
[2016-12-12 04:33] LABS: BASOPHILS % (AUTO) 0 % (0-3); EOSINOPHILS % (AUTO) 0 % (0-5); Mean Corpuscular Hemoglobin 29.2 pg (27.0-35.0); Mean Corpuscular Volume 93.4 fL (81-100); NEUTROPHILS % (AUTO) 81.1 % (40-74); Platelet Count 236 bil/L (150-400)
[2016-12-12] MEDS: guaiFENesin DM 200-20 mg/10 mL Syrup PO PRN ×2 (07:31→20:51)
[2016-12-12] MEDS ORDERED: Levalbuterol 1.25 mg/0.5mL Inhalation Solution NEB PRN ×2 (07:40→07:45)
[2016-12-12] MEDS: Ipratropium 0.02% 0.5 mg/2.5 mL Inhalation Solution NEB SCH ×4 (08:04→19:50)
[2016-12-12] MEDS: MethylprednisoLONE Sodium Succinate 40 mg/mL Inj IVPUSH SCH ×2 (09:12→12:27)
[2016-12-12] MEDS: Levalbuterol 1.25 mg/0.5mL Inhalation Solution NEB SCH ×3 (11:47→19:50)
--- NOTE | 2016-12-12 13:34 | NUR ---
spiritual care: pt request/follow conversational visit. pt agreeable for eucharistic visitor and reflected on recent progress. reflected on her hopes to return to her hobbies and normal activities and come to terms with family situation. blessing/prayer
--- NOTE | 2016-12-12 13:37 | PCM.PNMED ---
Subjective Date of Service December 12, 2016 Subjective Jacqueline Rodriguez is a 86-year-old female with atrial fibrillation (reportedly stopped Coumadin due to GI bleed), diastolic heart failure and hypertension who sent to the emergency department from Urgent care due to persistent cough and increasing shortness of breath. Admitted for acute respiratory failure, hypotension and atrial fibrillation with rapid ventricular response. Overnight, patient pretreated on 12/[address] angio due to contrast allergy with plan for CT scan at 2245. Unfortunately, patient IV infiltrated and patient without IV access and unable to get contrast. Pretreated reinitiated at 0900 with 40mg methylprednisolone IV q4h and 50mg diphenhydramine IV one hour prior to scan. Patient reports persistent cough and chest pain with coughing. Otherwise she states that she is feeling somewhat better and was able to get some rest. She is requesting something for constipation and states that she takes miralax at home regularly and sometimes requires enemas. Exam Vital Signs Vital Sign - Last Date Time Temp Pulse Resp B/P Pulse Ox O2 Delivery O2 Flow Rate FiO2 12/12/16 04:10 102 20 95 Nasal Cannula 40 40 12/12/16 03:41 106/71 12/11/16 23:16 36.7 Intake and Output 12/11/16 12/11/16 12/12/16 Cumulative From/Thru 15:00 23:00 07:00 12/09/16 13:17 - 12/12/16 06:26 Intake Total 50 ml 220 ml 4090 ml Output Total 800 ml 300 ml 2775 ml Balance -750 ml -80 ml 1315 ml Intake Oral 50 ml 200 ml 1300 ml IV Total 20 ml 2790 ml Output Urine Total 800 ml 300 ml 2775 ml # Voids 9 # Bowel Movements 0 Exam General: Ill-appearing, non-toxic, elderly female in no acute distress. High flow O2. HEENT: Normocephalic, atraumatic. PERRLA, anicteric sclerae, moist conjunctivae , oral mucosa moist/pink Neck: Supple with full range of motion. No jugular venous distension. Cardiovascular: Tachycardic, irregularly irregular rhythm with no murmurs, rubs , or gallops appreciated Pulmonary: Symmetric chest rise with equal air entry bilaterally. Lung sounds diminished, patient coughing on deep inspiration attempts, diffuse crackles and no wheezing. No use of accessory muscles. Abdomen: Bowel tones present. Soft, nontender, nondistended. Extremities: Warm, well perfused, no edema, no clubbing or cyanosis. Skin: Normal temperature, turgor, and texture; no rash or ulcerations. Neurological: Alert and oriented to person, place and time. No focal deficits. Psychiatric: Normal mood and affect. Appropriately interactive. IVs and Medications Medications Reviewed: Medications were reviewed in detail Lab and Diagnostics Laboratory Tests Test 12/11/16 10:50 12/12/16 04:10 Lactic Acid Level 1.8mmol/L (0.4-2.0) White Blood Count 6.7th/mm3 (3.8-10.1) Red Blood Count 3.77mil/mm3 (3.90-5.20) Hemoglobin 11.0g/dL (12.0-15.6) Hematocrit 35.2% (35.0-46.0) Mean Corpuscular Volume 93.4fL (81-100) Mean Corpuscular Hemoglobin 29.2pg (27.0-35.0) Mean Corpuscular Hemoglobin Concent 31.3% (32.0-37.0) Red Cell Distribution Width 17.1% (12.3-15.4) Platelet Count 236bil/L (150-400) Neutrophils (%) (Auto) 81.1% (40-74) Lymphocytes (%) (Auto) 13.6% (14-46) Monocytes (%) (Auto) 5.0% (4-12) Eosinophils (%) (Auto) 0% (0-5) Basophils (%) (Auto) 0% (0-3) Sodium Level 143mEq/L (134-144) Potassium Level 4.1mEq/L (3.5-5.2) Chloride Level 99mEq/L (97-108) Carbon Dioxide Level 28mmol/L (18-29) Blood Urea Nitrogen 35mg/dL (8-27) Creatinine 0.64mg/dL (0.57-1.00) Estimat Glomerular Filtration Rate 126mL/min (>59) Glucose Level 165mg/dL (60-99) Calcium Level 9.1mg/dL (8.5-10.1) Total Bilirubin 0.4mg/dL (0.0-1.2) Aspartate Amino Transf (AST/SGOT) 22U/L (0-50) Alanine Aminotransferase (ALT/SGPT) 12U/L (0-32) Alkaline Phosphatase 58U/L (25-165) Total Protein 6.2g/dL (6.4-8.4) Albumin 3.1g/dL (3.4-5.0) Result Diagram: 12/12/16 0410 12/12/16 0410 Microbiology 12/09/16 Blood Culture -no growth at 2days 12/10/16 Resp viral PCR- negative X-Rays, CTs and MRIs (12/09/16) X-RAY CHEST ONE VIEW, PORTABLE IMPRESSION: 1. Mild cardiomegaly as before, without acute cardiopulmonary disease. 2. Large retrocardiac hiatal hernia. Dictated and approved by: Robin Corcoran M.D. on 12/09/2016 at 13:58 Cardiac Echo Impressions (12/04/16) ECHOCARDIOGRAM REPORT Interpretation Summary There is a prominent hiatal hernia behind the left atrium. There is mild- moderate concentric left ventricular hypertrophy. Left ventricular systolic function is normal without focal wall motion abnormalities. The ejection fraction is estimated to be 55-60%. LVEF has remained stable. The right ventricle grossly appears normal in size with probable normal systolic function. The right ventricular systolic pressure is estimated at 24mmHg assuming a right atrial pressure of 3 mm Hg. Compared to the prior echo exam, there has been a decrease in the severity of pulmonary hypertension. The left atrium is severely dilated. The right atrium is mildly dilated. There is mild mitral regurgitation. MR has decreased since prior study. There is no other significant valvular heart disease. The aortic root is normal size. Reading Physician:PM Assessment & Plan Jacqueline Rodriguez is a 86-year-old female with atrial fibrillation (reportedly stopped Coumadin due to GI bleed), diastolic heart failure and hypertension who sent to the emergency department from Urgent care due to persistent cough and increasing shortness of breath. Admitted for acute respiratory failure, hypotension and atrial fibrillation with rapid ventricular response. 1. Acute respiratory failure. Present on admission. Active. -Likely secondary to acute on chronic heart failure, possibly triggered by viral URI and Afib with RVR or less likely PE. Questionable diagnosis of COPD, HCAP (patient discharged 12/05/16). -Patient denies diagnosis of COPD, quit smoking in 1984 and states nebulizers were prescribed following prior aspiration pneumonia. -Lactic acid normalized. Procalcitonin negative, normal WBC, patient denies fevers, chills. -Chest xray negative for acute process. -Respiratory viral PCR, negative -D-dimer elevated, 1.47. CT angio ordered. Pt has contrast allergy (rash) pre- treating. -DuoNeb q4h, albuterol q2h prn -Follow CBC -Supplemental oxygen with consideration for Bipap if needed, note patient is DNI. 2. Atrial fibrillation with rapid ventricular response, chronic. Present on admission. Active. -Likely triggered by the coughing and respiratory distress. HR in low 100s-140. -Previously anticoagulated on Coumadin, reportedly discontinued due to bleeding risk. -Continue clopidogrel and metoprolol 50mg bid (previously on 75mg bid) 3. Acute on chronic heart failure, diastolic. Present on admission. Active -Patient hypotensive (SBP 80s-90s, DBP 50-60) at presentation and started on IV fluids, diuretic held and patient became fluid overloaded. -ECHO (12/04/16) with stable EF of 55-60% and decrease in severity of pulmonary hypertension and mitral regurgitation compared to prior ECHO (/). -IV fluids stopped. Diuresed with IV furosemide -Continue home metoprolol, oral furosemide 20mg daily. -Monitor I/Os 4. Lactic acidosis. Present on admission. Resolved. -Likely due to tissue hypoxia secondary to respiratory distress/coughing and Albuterol -4.8 on admission, trended down 5 Seizures, chronic. Present on admission. Presumed stable. -Continue Depakote 500 mg bid 6. Hyperlipidemia, chronic. Present on admission. Presumed stable. -Continue Atorvastatin 40 mg daily 7. Depression chronic. Present on admission. Presumed stable. -Continue fluoxetine and mirtazapine. 8. Arthritis, chronic. Present on admission. Presumed stable. - Continue Acetaminophen 9. History of chronic anemia. Present on admission. Presumed stable. -Hb 13, Hct 39.5 -Monitor CBC - Acetaminophen as needed for mild pain/fever/headache - Bowel regimen as needed - Antiemetic as needed Disposition: Patient will likely need 1-2 more days of inpatient monitoring until respiratory status improves. VTE Prophylaxis: Sub-Q Heparin (Unfractionated), Theraputic Anticoag with Warfarin VTE Mechanical Devices: Intermittant Pneumatic CD Resuscitation Status: DNR/DNI:Do Not Resuscitate/Intubate Attending Statement The patient was seen and examined together with Resident/House-staff on 12/12/16 and I agree with the history, exam and plan as outlined in the note above. Donna Trejo DO December 12, 2016 08:07 Nura Martínez December 25, 2016 17:33
--- NOTE | 2016-12-12 16:34 | DRSVH ---
PROCEDURE: Limited chest CT. INDICATIONS: dyspnea. rule out PE TECHNIQUE: The patient's intravenous line infiltrated during intravenous contrast administration. Ro ughly 59 cc of iodinated contrast material infiltrated into the left arm. The examination was not com pleted. IMPRESSION: Examination not performed secondary to intravenous line infiltration and lack of intraven ous access. Dictated by: Lauren Alejandro M.D. on 12/12/2016 at 16:30 Approved by: Lauren Alejandro M.D. on 12/12/2016 at 16:32
[2016-12-12] MEDS: Polyethylene Glycol (PEG) 17 Gm Powder PO SCH (16:48)
--- NOTE | 2016-12-12 19:00 | NUR ---
Oxygen need, IV status ( computers down late entry ) Pt was on 40L at 40% high flow oxygen at the start of shift. During the day with the help of respiratory therapy we were able to wean her down to 15L oxy mask. Pt has a loose, course cough, she has been getting Tessalon Pearls and Robitussin alternating Q4 hours. Pt has also been changed to Xopenex Q4 hours scheduled for her loose congested cough. Pt is allergic to contrast and had to be premedicated for CTA with Benadryl and steroids. Unable to establish IV access today, IV therapy had an IV access this morning for CTA study today. IV infiltrated during CTA unable to get a new access. MD aware, MD ordered PICC line. Plan is to also change the CTA to a VQ scan tomorrow.
[2016-12-12] MEDS ORDERED: Sodium Chloride LOK Flush 10 mL Syringe IVFLUSH PRN ×2 (19:40)
--- NOTE | 2016-12-12 22:10 | DRSVH ---
PROCEDURE: X-RAY PICC LINE PLACEMENT BY NURSE ([id number]) INDICATIONS: SHORTNESS OF BREATH/ AFIB/ TACHYCARDIA COMPARISON: [facility], CR, XR CHEST 1VW (PORTABLE), 12/09/2016, 13:35. FINDINGS: PICC was placed by the intravenous therapy team from the right side. Fluoroscopic spot fi lm demonstrates tip of PICC in the region of the cavoatrial junction. IMPRESSION: Tip of PICC extends to the region of the cavoatrial junction. Dictated by: Bennie Martino M.D. on 12/12/2016 at 22:07 Approved by: Bennie Martino M.D. on 12/12/2016 at 22:08
[2016-12-13] VITALS (12 sets, daily range): BP systolic 103–126; BP diastolic 50–98; PULSE 90–128; RESP 16–22; O2SAT 90–100
[2016-12-13] MEDS: Sodium Chloride LOK Flush 10 mL Syringe IVFLUSH SCH ×8 (00:30→22:52)
[2016-12-13] MEDS: guaiFENesin DM 200-20 mg/10 mL Syrup PO PRN ×3 (02:30→20:12)
[2016-12-13 02:37] LABS: BASOPHILS % (AUTO) 0.1 % (0-3); EOSINOPHILS % (AUTO) 0 % (0-5); MONOCYTES % (AUTO) 5.7 % (4-12); Mean Corpuscular Hemoglobin 29.6 pg (27.0-35.0); Mean Corpuscular Volume 92.3 fL (81-100); NEUTROPHILS % (AUTO) 81.8 % (40-74); Platelet Count 279 bil/L (150-400)
[2016-12-13 03:34] LABS: Magnesium 2.4 mg/dL (1.6-2.6)
--- NOTE | 2016-12-13 05:01 | NUR ---
PICC/COUGH/OXYGEN Pt had a double lumen PICC placed, patent. Pt c/o chest pain from cough, received oxycodone 5mg, Tessalon Pearls 100mg, and guaifenesin 5ml. Pt's O2 decreased to 11L oxy-mask sating mid to high 90's. Pt's HR in the 110's, a-fib.
[2016-12-13] MEDS: Levalbuterol 1.25 mg/0.5mL Inhalation Solution NEB SCH ×4 (08:16→19:36)
[2016-12-13] MEDS: Ipratropium 0.02% 0.5 mg/2.5 mL Inhalation Solution NEB SCH ×4 (08:16→19:36)
[2016-12-13] MEDS: Polyethylene Glycol (PEG) 17 Gm Powder PO SCH (08:18)
[2016-12-13] MEDS: MethylprednisoLONE Sodium Succinate 40 mg/mL Inj IVPUSH SCH ×2 (10:19→14:00)
[2016-12-13] MEDS ORDERED: MethylprednisoLONE Sodium Succinate 40 mg/mL Inj IVPUSH SCH (12:30)
--- NOTE | 2016-12-13 14:42 | NUR ---
CT Scan w/Contrast, Enema, Multidisciplinary Communication 0711 - Tyler from nuclear medicine called and was given report for the ordered VQ scan. 9927 - Paged Dr. Trejo as the patient had been asking for an enema after not having a bowel movement for 3-4 days and feeling quite uncomfortable. Dr. Trejo said she ordered it and to give a fleets enema to her. There was no order in the eMAR, but went ahead and gave the enema at 0830 due to her discomfort and having received a telephone order. 0840 - Spoke to Dr. Trejo who showed this nurse that even though the enema wasn't under her eMAR it was in her orders as a procedure. [employer] was not allowing Dr. Trejo to order it as a standard medication. 3196 - Spoke to Son Soto from the CT department who said that a CT scan had been ordered, but due to her allergy to contrast she would need to have Prednisone and Benadryl per protocol prior to the scan. Spoke with Dr. Trejo in morning multidisciplinary rounds and she said that she wanted instead to follow the stat protocol and to give Solu-medrol 4 hours prior and then Solu-medrol and Benadryl 1 hour prior to the scan. 1006 - Confirmed with Tyler from nuclear medicine that the VQ scan was discontinued. Called Son Soto and updated him on the CT scan plan. Around this time she was given her first dose of Solu-medrol. 1410 - Called Son Soto to notify him that the Solu-medrol and Benadryl had been given and that she would be ready to have her CT scan about 1500. 1454 - She was transported via wheelchair from [facility] [address] department to get her CT scan completed. Care continues. Addendum: 12/13/16 at 1640 by DIONNA NIEVES RN 1515 - She returned from [place] to [facility]27, was settled back into her room, she denied any allergic reactions from the contrast. Son from [facility] called and said she tolerated the contrast well with no allergic reactions. Care continues.
--- NOTE | 2016-12-13 14:43 | PCM.PNMED ---
Subjective Date of Service December 13, 2016 Subjective Ms. Rodriguez is a 86-year-old female with atrial fibrillation (reportedly stopped Coumadin due to GI bleed), diastolic heart failure and hypertension sent to the emergency department from Urgent care due to persistent cough and increasing shortness of breath. Admitted for acute respiratory failure, hypotension and atrial fibrillation with rapid ventricular response. Patient's IV infiltrated prior to CT angio on 12/12 and scan not completed as she was unable to get contrast. Several attempts by IV therapy for a peripheral line were unsuccessful and ultimately a PICC line was placed on 12/12. Per nursing, patient's oxygen titrated down to 11L oxymask and she maintained O2 sats in the mid to high 90s overnight. Today patient reports chest pain with coughing and constipation, she is requesting an enema. Denies fever, chills, abdominal pain, nausea, vomiting, or urinary symptoms. Exam Vital Signs Vital Sign - Last Date Time Temp Pulse Resp B/P Pulse Ox O2 Delivery O2 Flow Rate FiO2 12/13/16 08:05 100 20 99 OxyMask 9.00 12/13/16 08:04 37.0 109/67 12/12/16 13:00 40 Intake and Output 12/12/16 12/12/16 12/13/16 Cumulative From/Thru 15:00 23:00 07:00 12/09/16 13:17 - 12/13/16 05:51 Intake Total 400 ml 200 ml 4690 ml Output Total 300 ml 600 ml 3675 ml Balance 100 ml -400 ml 1015 ml Intake Oral 400 ml 200 ml 1900 ml IV Total 0 ml 2790 ml Output Urine Total 300 ml 600 ml 3675 ml # Voids 9 # Bowel Movements 0 Exam General: Ill-appearing, non-toxic, elderly female in no acute distress, coughing. patient removed oxymask temporarily but is on 9L oxymask. HEENT: Normocephalic, atraumatic. PERRLA, anicteric sclerae, moist conjunctivae , oral mucosa moist/pink Neck: Supple with full range of motion. No jugular venous distension. Cardiovascular: Tachycardic, irregularly irregular rhythm with no murmurs, rubs , or gallops appreciated Pulmonary: Symmetric chest rise with equal air entry bilaterally. Lung sounds diminished, diffuse crackles and no wheezing. Conversationally dyspneic on room air. . Abdomen: Bowel tones present. Soft, nontender, nondistended. Extremities: Warm, well perfused, no edema, no clubbing or cyanosis. Skin: Normal temperature, turgor, and texture; no rash or ulcerations. Neurological: Alert and oriented to person, place and time. No focal deficits. Psychiatric: Normal mood and affect. Appropriately interactive. IVs and Medications Medications Reviewed: Medications were reviewed in detail Lab and Diagnostics Laboratory Tests Test 12/13/16 02:30 White Blood Count 8.4th/mm3 (3.8-10.1) Red Blood Count 3.88mil/mm3 (3.90-5.20) Hemoglobin 11.5g/dL (12.0-15.6) Hematocrit 35.8% (35.0-46.0) Mean Corpuscular Volume 92.3fL (81-100) Mean Corpuscular Hemoglobin 29.6pg (27.0-35.0) Mean Corpuscular Hemoglobin Concent 32.1% (32.0-37.0) Red Cell Distribution Width 16.6% (12.3-15.4) Platelet Count 279bil/L (150-400) Neutrophils (%) (Auto) 81.8% (40-74) Lymphocytes (%) (Auto) 11.9% (14-46) Monocytes (%) (Auto) 5.7% (4-12) Eosinophils (%) (Auto) 0% (0-5) Basophils (%) (Auto) 0.1% (0-3) Sodium Level 140mEq/L (134-144) Potassium Level 4.3mEq/L (3.5-5.2) Chloride Level 96mEq/L (97-108) Carbon Dioxide Level 32mmol/L (18-29) Blood Urea Nitrogen 36mg/dL (8-27) Creatinine 0.56mg/dL (0.57-1.00) Estimat Glomerular Filtration Rate 147mL/min (>59) Glucose Level 125mg/dL (60-99) Calcium Level 9.1mg/dL (8.5-10.1) Magnesium Level 2.4mg/dL (1.6-2.6) Total Bilirubin 0.3mg/dL (0.0-1.2) Aspartate Amino Transf (AST/SGOT) 19U/L (0-50) Alanine Aminotransferase (ALT/SGPT) 12U/L (0-32) Alkaline Phosphatase 55U/L (25-165) Total Protein 6.0g/dL (6.4-8.4) Albumin 3.2g/dL (3.4-5.0) Procalcitonin 0.09ng/mL (0.00-0.08) Result Diagram: 12/13/16 0230 12/13/16 0230 Microbiology 12/09/16 Blood Culture -no growth at 2days 12/10/16 Resp viral PCR- negative X-Rays, CTs and MRIs (12/09/16) X-RAY CHEST ONE VIEW, PORTABLE IMPRESSION: 1. Mild cardiomegaly as before, without acute cardiopulmonary disease. 2. Large retrocardiac hiatal hernia. Dictated and approved by: Robin Corcoran M.D. on 12/09/2016 at 13:58 (12/13/16) X-RAY PICC LINE PLACEMENT BY NURSE IMPRESSION: Tip of PICC extends to the region of the cavoatrial junction. Dictated and approved by: Bennie Martino M.D. on 12/12/2016 at 22:07 Cardiac Echo Impressions (12/04/16) ECHOCARDIOGRAM REPORT Interpretation Summary There is a prominent hiatal hernia behind the left atrium. There is mild- moderate concentric left ventricular hypertrophy. Left ventricular systolic function is normal without focal wall motion abnormalities. The ejection fraction is estimated to be 55-60%. LVEF has remained stable. The right ventricle grossly appears normal in size with probable normal systolic function. The right ventricular systolic pressure is estimated at 24mmHg assuming a right atrial pressure of 3 mm Hg. Compared to the prior echo exam, there has been a decrease in the severity of pulmonary hypertension. The left atrium is severely dilated. The right atrium is mildly dilated. There is mild mitral regurgitation. MR has decreased since prior study. There is no other significant valvular heart disease. The aortic root is normal size. Reading Physician:PM Assessment & Plan Jacqueline Rodriguez is a 86-year-old female with atrial fibrillation (reportedly stopped Coumadin due to GI bleed), diastolic heart failure and hypertension who sent to the emergency department from Urgent care due to persistent cough and increasing shortness of breath. Admitted for acute respiratory failure, hypotension and atrial fibrillation with rapid ventricular response. 1. Acute hypoxemic respiratory failure. Present on admission. Improving -Likely secondary to acute on chronic heart failure, possibly triggered by viral URI, aspiration and/or Afib with RVR or less likely PE. Questionable diagnosis of COPD, HCAP (patient discharged 12/05/16). -Patient denies diagnosis of COPD, quit smoking in 1984 and states nebulizers were prescribed following prior aspiration pneumonia. -Lactic acid normalized. Procalcitonin negative, normal WBC, patient denies fevers, chills. -Chest xray negative for acute process. -Respiratory viral PCR, negative -D-dimer elevated, 1.47. CT angio ordered. Pt has contrast allergy, pre- treating again today. First two attempts unsuccessful due to infiltrated IV lines, no access to receive contrast for study. PICC line placed 12/12. -DuoNeb q4h, albuterol q2h prn -Follow CBC -Swallow evaluation to assess for aspiration. 2. Possible aspiration, acute on chronic. Present on admission. Active. -Patient reported a history of aspiration pneumonia. Chart review revealed a modified barium swallow study in November of 2015. Based on this study speech recommended a stimulation diet, pudding thick liquids and outpatient speech therapy. -Clinically no signs of infection. Patient with persistent cough possibly secondary to reflux and aspiration. -Swallow evaluation ordered. 3. Atrial fibrillation with rapid ventricular response, chronic. Present on admission. Active. -Likely triggered by the coughing and respiratory distress. HR in low 90-low 100s. -Previously anticoagulated on Coumadin, reportedly discontinued due to bleeding risk. -Continue clopidogrel and metoprolol 50mg bid (previously on 75mg bid) 4. Acute on chronic heart failure, diastolic. Present on admission. Active -Patient hypotensive (SBP 80s-90s, DBP 50-60) at presentation and started on IV fluids, diuretic held and patient became fluid overloaded. -ECHO (12/04/16) with stable EF of 55-60% and decrease in severity of pulmonary hypertension and mitral regurgitation compared to prior ECHO (/). -IV fluids stopped. Diuresed with IV furosemide -Continue home metoprolol, oral furosemide 20mg daily. -Monitor I/Os 5. Lactic acidosis. Present on admission. Resolved. -Likely due to tissue hypoxia secondary to respiratory distress/coughing and Albuterol -4.8 on admission, trended down 6 Seizures, chronic. Present on admission. Presumed stable. -Continue Depakote 500 mg bid 7. Hyperlipidemia, chronic. Present on admission. Presumed stable. -Continue Atorvastatin 40 mg daily 8. Depression chronic. Present on admission. Presumed stable. -Continue fluoxetine and mirtazapine. 9. Arthritis, chronic. Present on admission. Presumed stable. - Continue Acetaminophen 10. History of chronic anemia. Present on admission. Presumed stable. -Hb 13, Hct 39.5 -Monitor CBC - Acetaminophen as needed for mild pain/fever/headache - Bowel regimen as needed - Antiemetic as needed Disposition: Patient will likely need 1-2 more days of inpatient monitoring until respiratory status improves. Pain Evaluation: Adequate Pain Control VTE Prophylaxis: Sub-Q Heparin (Unfractionated), Theraputic Anticoag with Warfarin VTE Mechanical Devices: Intermittant Pneumatic CD Resuscitation Status: DNR/DNI:Do Not Resuscitate/Intubate Attending Statement The patient was seen and examined together with Dr. Trejo on 12/13/2016 and I agree with the history, exam and plan as outlined in the note above. . Donna Trejo DO December 13, 2016 08:41 Devan Arcos MD December 14, 2016 17:33
--- NOTE | 2016-12-13 15:45 | DRSVH ---
PROCEDURE: CT ANGIO CHEST PULMONARY EMBOLISM ([id number]) INDICATIONS: shortness of breath, tachycardia TECHNIQUE: After the administration of intravenous contrast, 2 mm thick sections acquired from the pulmonary api mattie to the posterior costophrenic angles. 3-dimensional maximum intensity projection (MIP) coronal a nd sagittal reformats were then acquired through the thorax. For radiation dose reduction, the follo wing was used: automated exposure control, adjustment of mA and/or kV according to patient size. COMPARISON: [facility], CT, CT ANGIO CHEST PE, 12/12/2016, 14:34. FINDINGS: Image quality: Excellent. Pulmonary arteries: Pulmonary arteries are normal in size, and demonstrate no intraluminal filling d efects to suggest central pulmonary embolism. Lungs and pleura: Patchy consolidation in the left lung base. There is bibasilar dependent atelectasi s. No pneumothorax or pleural effusion. Central airways appear grossly patent. There is respiratory m otion degradation of the study Mediastinum: Heart size is increased, without pericardial effusion. No mediastinal or hilar adenopa thy. Thoracic aorta is normal in caliber and enhancement. Esophagus is normal in caliber, and there is a moderate to large hiatal hernia. Bones and chest wall: No suspicious bony lesions. Ribs and thoracic spine appear intact throughout. No axillary or supraclavicular adenopathy. Abdomen: Partially visualized possible left renal cyst although too small to characterize measuring 9 mm. There is a nonobstructive 2 mm left renal calculus. Age indeterminate mild T12 and L1 compressio n fractures IMPRESSION: No evidence of pulmonary embolism. Left basilar consolidation which could represent scar/atelectasis versus pneumonia. Please correlate clinically. Moderate hiatal hernia Cardiomegaly. Dictated by: Mynor Dotson M.D. on 12/13/2016 at 15:39 Approved by: Mynor Dotson M.D. on 12/13/2016 at 15:44
[2016-12-14] VITALS (12 sets, daily range): BP systolic 101–118; BP diastolic 60–81; PULSE 86–108; RESP 15–22; O2SAT 92–98
--- NOTE | 2016-12-14 00:49 | NUR ---
Pain/Cough Patient c/o chest pain rated 8/10 due to frequent cough attacks. Received Oxycodone 5mg PO with effective results. Denied pain upon reassessment. Alternating Tessalon Perle 100mg PO and Robitussin 5 ml PO with effective results for cough. Remains on 8L oxymask. Addendum: 12/14/16 at 0149 by PARVIZ CHEN RN Hematuria noted at beginning of shift. No c/o pain or discomfort. [place] remained patent. JEREMYI page sent to Dr. Casas @ [phone]. No new orders rec'd. Urine currently pale in [place] tubing.
[2016-12-14] MEDS: guaiFENesin DM 200-20 mg/10 mL Syrup PO PRN ×2 (02:20→21:03)
[2016-12-14 04:44] LABS: BASOPHILS % (AUTO) 0.2 % (0-3); EOSINOPHILS % (AUTO) 0 % (0-5); MONOCYTES % (AUTO) 5.1 % (4-12); Mean Corpuscular Hemoglobin 29.5 pg (27.0-35.0); Mean Corpuscular Volume 93.2 fL (81-100); NEUTROPHILS % (AUTO) 78.5 % (40-74); Platelet Count 309 bil/L (150-400)
[2016-12-14] MEDS: Ipratropium 0.02% 0.5 mg/2.5 mL Inhalation Solution NEB SCH ×4 (08:12→20:31)
[2016-12-14] MEDS: Levalbuterol 1.25 mg/0.5mL Inhalation Solution NEB SCH ×4 (08:12→20:31)
[2016-12-14] MEDS: Polyethylene Glycol (PEG) 17 Gm Powder PO SCH (09:05)
[2016-12-14] MEDS: Sodium Chloride LOK Flush 10 mL Syringe IVFLUSH SCH ×6 (09:05→23:42)
--- NOTE | 2016-12-14 10:34 | NUR ---
Evaluation completed. Please go to "Notes" then click on "Assessments and Notes" (bottom left corner of screen). Then select appropriate discipline tab on top of screen.
--- NOTE | 2016-12-14 18:58 | PCM.PNMED ---
Subjective Date of Service December 14, 2016 Subjective Hospital day 6. Continue tachycardic overnight. Patient today reports that she is doing much better. She has been transitioned to oxygen supplementation by nasal cannula on just several liters. Reports that she has not been up out of bed very much at all. Otherwise denies complaints. Focused ROS otherwise negative except as noted. Exam Vital Signs Vital Sign - Last Date Time Temp Pulse Resp B/P Pulse Ox O2 Delivery O2 Flow Rate FiO2 12/14/16 16:15 96 18 98 OxyMask 3.00 12/14/16 12:32 36.9 113/81 12/12/16 13:00 40 Intake and Output 12/13/16 12/13/16 12/14/16 Cumulative From/Thru 15:00 23:00 07:00 12/09/16 13:17 - 12/14/16 06:55 Intake Total 440 ml 791 ml 5921 ml Output Total 600 ml 575 ml 4850 ml Balance -160 ml 216 ml 1071 ml Intake Oral 440 ml 791 ml 3131 ml IV Total 2790 ml Output Urine Total 600 ml 575 ml 4850 ml # Voids 9 # Bowel Movements 1 1 Exam General: Ill-appearing, non-toxic, elderly female in no acute distress, coughing. is on 3L oxymask. HEENT: Normocephalic, atraumatic. PERRL, anicteric sclerae, moist conjunctivae, oral mucosa moist/pink Neck: Supple with full range of motion. No jugular venous distension. Cardiovascular: Tachycardic, irregularly irregular rhythm with no murmurs, rubs , or gallops appreciated Pulmonary: Symmetric chest rise with equal air entry bilaterally. Lung sounds diminished, diffuse crackles and no wheezing. Conversationally dyspneic on room air. . Abdomen: Bowel tones present. Soft, nontender, nondistended. Extremities: Warm, well perfused, no edema, no clubbing or cyanosis. Skin: Normal temperature, turgor, and texture; no rash or ulcerations. Neurological: Alert and oriented to person, place and time. No focal deficits. Psychiatric: Normal mood and affect. Appropriately interactive. IVs and Medications Medications Reviewed: Medications were reviewed in detail Lab and Diagnostics Laboratory Tests Test 12/14/16 04:30 White Blood Count 8.2th/mm3 (3.8-10.1) Red Blood Count 3.96mil/mm3 (3.90-5.20) Hemoglobin 11.7g/dL (12.0-15.6) Hematocrit 36.9% (35.0-46.0) Mean Corpuscular Volume 93.2fL (81-100) Mean Corpuscular Hemoglobin 29.5pg (27.0-35.0) Mean Corpuscular Hemoglobin Concent 31.7% (32.0-37.0) Red Cell Distribution Width 16.7% (12.3-15.4) Platelet Count 309bil/L (150-400) Neutrophils (%) (Auto) 78.5% (40-74) Lymphocytes (%) (Auto) 15.1% (14-46) Monocytes (%) (Auto) 5.1% (4-12) Eosinophils (%) (Auto) 0% (0-5) Basophils (%) (Auto) 0.2% (0-3) Sodium Level 143mEq/L (134-144) Potassium Level 4.6mEq/L (3.5-5.2) Chloride Level 99mEq/L (97-108) Carbon Dioxide Level 35mmol/L (18-29) Blood Urea Nitrogen 39mg/dL (8-27) Creatinine 0.57mg/dL (0.57-1.00) Estimat Glomerular Filtration Rate 144mL/min (>59) Glucose Level 130mg/dL (60-99) Calcium Level 9.1mg/dL (8.5-10.1) Total Bilirubin 0.3mg/dL (0.0-1.2) Aspartate Amino Transf (AST/SGOT) 18U/L (0-50) Alanine Aminotransferase (ALT/SGPT) 12U/L (0-32) Alkaline Phosphatase 50U/L (25-165) Total Protein 6.0g/dL (6.4-8.4) Albumin 3.1g/dL (3.4-5.0) Result Diagram: 12/14/16 0430 12/14/16 0430 Microbiology 12/09/16 Blood Culture -no growth at 2days 12/10/16 Resp viral PCR- negative X-Rays, CTs and MRIs (12/09/16) X-RAY CHEST ONE VIEW, PORTABLE IMPRESSION: 1. Mild cardiomegaly as before, without acute cardiopulmonary disease. 2. Large retrocardiac hiatal hernia. Dictated and approved by: Robin Corcoran M.D. on 12/09/2016 at 13:58 (12/13/16) X-RAY PICC LINE PLACEMENT BY NURSE IMPRESSION: Tip of PICC extends to the region of the cavoatrial junction. Dictated and approved by: Bennie Martino M.D. on 12/12/2016 at 22:07 Date of Service: 12/13/16 0918 PROCEDURE: CT ANGIO CHEST PULMONARY EMBOLISM ([id number]) INDICATIONS: shortness of breath, tachycardia IMPRESSION: No evidence of pulmonary embolism. Left basilar consolidation which could represent scar/atelectasis versus pneumonia. Please correlate clinically. Moderate hiatal hernia Cardiomegaly. Dictated by: Mynor Dotson M.D. on 12/13/2016 at 15:39 Cardiac Echo Impressions (12/04/16) ECHOCARDIOGRAM REPORT Interpretation Summary There is a prominent hiatal hernia behind the left atrium. There is mild- moderate concentric left ventricular hypertrophy. Left ventricular systolic function is normal without focal wall motion abnormalities. The ejection fraction is estimated to be 55-60%. LVEF has remained stable. The right ventricle grossly appears normal in size with probable normal systolic function. The right ventricular systolic pressure is estimated at 24mmHg assuming a right atrial pressure of 3 mm Hg. Compared to the prior echo exam, there has been a decrease in the severity of pulmonary hypertension. The left atrium is severely dilated. The right atrium is mildly dilated. There is mild mitral regurgitation. MR has decreased since prior study. There is no other significant valvular heart disease. The aortic root is normal size. Reading Physician:PM Assessment & Plan Jacqueline Rodriguez is a 86-year-old female with atrial fibrillation (reportedly stopped Coumadin due to GI bleed), diastolic heart failure and hypertension who sent to the emergency department from Urgent care due to persistent cough and increasing shortness of breath. Admitted for acute respiratory failure, hypotension and atrial fibrillation with rapid ventricular response. 1. Acute hypoxemic respiratory failure. Present on admission. Improving -Likely secondary to acute on chronic heart failure, possibly triggered by viral URI, aspiration and/or Afib with RVR or less likely PE. Questionable diagnosis of COPD, HCAP (patient discharged 12/05/16). -Patient denies diagnosis of COPD, quit smoking in 1984 and states nebulizers were prescribed following prior aspiration pneumonia. -Lactic acid normalized. Procalcitonin negative, normal WBC, patient denies fevers, chills. -Chest xray negative for acute process. -Respiratory viral PCR, negative -D-dimer elevated, 1.47. CT angio ordered. Pt has contrast allergy, pre- treating again today. First two attempts unsuccessful due to infiltrated IV lines, no access to receive contrast for study. PICC line placed 12/12. -DuoNeb q4h, xopenex q2h prn -Follow CBC -Lasix twice a day 2. Possible aspiration, acute on chronic. Present on admission. Active. -Patient reported a history of aspiration pneumonia. Chart review revealed a modified barium swallow study in November of 2015. Based on this study speech recommended a stimulation diet, pudding thick liquids and outpatient speech therapy. -Clinically no signs of infection. Patient with persistent cough possibly secondary to reflux and aspiration. -Swallow evaluation with dietary modifications. -Modified barium to assess tomorrow 3. Atrial fibrillation with rapid ventricular response, chronic. Present on admission. Active. -Likely triggered by the coughing and respiratory distress. HR in low 90-low 100s. -Previously anticoagulated on Coumadin, reportedly discontinued due to bleeding risk. -Continue clopidogrel and metoprolol 50mg bid (previously on 75mg bid) 4. Acute on chronic heart failure, diastolic. Present on admission. Active -Patient hypotensive (SBP 80s-90s, DBP 50-60) at presentation and started on IV fluids, diuretic held and patient became fluid overloaded. -ECHO (12/04/16) with stable EF of 55-60% and decrease in severity of pulmonary hypertension and mitral regurgitation compared to prior ECHO (02/05/15). -IV fluids stopped. Diuresed with IV furosemide -Continue home metoprolol, oral furosemide 20mg daily. -Monitor I/Os 5. Lactic acidosis. Present on admission. Resolved. -Likely due to tissue hypoxia secondary to respiratory distress/coughing and Albuterol -4.8 on admission, trended down 6 Seizures, chronic. -Continue Depakote 500 mg bid 7. Hyperlipidemia, chronic. -Continue Atorvastatin 40 mg daily 8. Depression chronic. -Continue fluoxetine and mirtazapine. 9. Arthritis, chronic. - Continue Acetaminophen 10. History of chronic anemia. -Hb 13, Hct 39.5 -Monitor CBC - Acetaminophen as needed for mild pain/fever/headache - Bowel regimen as needed - Antiemetic as needed Patient is admitted under inpatient status with expected length of stay greater than 2 midnights due to severity of presenting symptoms, risk of adverse event, and complexity of treatment plan. Disposition: Possible discharge tomorrow as patient is on her home O2 level. Pain Evaluation: Adequate Pain Control GI Prophylaxis: H2 antony VTE Prophylaxis: Sub-Q Heparin (Unfractionated) VTE Mechanical Devices: Intermittant Pneumatic CD Resuscitation Status: DNR/DNI:Do Not Resuscitate/Intubate Attending Statement The patient was seen and examined together with Dr. Hinojosa on 12/14/2016 and I agree with the history, exam and plan as outlined in the note above. . Darío Avila DO December 14, 2016 18:39 Devan Arcos MD December 14, 2016 19:15
[2016-12-14] MEDS: Heparin 5,000 Unit/mL Inj SUBQ SCH (23:41)
[2016-12-15] VITALS (11 sets, daily range): BP systolic 91–115; BP diastolic 58–82; PULSE 74–102; RESP 16–20; O2SAT 92–99
[2016-12-15] MEDS: guaiFENesin DM 200-20 mg/10 mL Syrup PO PRN ×3 (01:02→16:49)
--- NOTE | 2016-12-15 02:51 | NUR ---
Cough: Pt with a persistent cough at the beginning of the shift, states occasionally productive with clear, thick sputum. Cough decreases for a while after medication. Robitussin, Tessalon Pearles and Oxycodone for chest pain due to coughing all administered PRN through the night. Both cough medications seemed to allow pt some time to sleep without coughing. Tele a fib rate 90s to low 100s. CPOX in place with pt on 3L NC maintaining sats in the mid 90s.
[2016-12-15] MEDS: Ipratropium 0.02% 0.5 mg/2.5 mL Inhalation Solution NEB SCH ×3 (07:49→16:09)
[2016-12-15] MEDS: Levalbuterol 1.25 mg/0.5mL Inhalation Solution NEB SCH ×3 (07:49→16:09)
[2016-12-15] MEDS: Heparin 5,000 Unit/mL Inj SUBQ SCH ×2 (08:15→16:30)
[2016-12-15] MEDS: Polyethylene Glycol (PEG) 17 Gm Powder PO SCH (08:15)
[2016-12-15] MEDS: Sodium Chloride LOK Flush 10 mL Syringe IVFLUSH SCH ×4 (08:30→16:30)
--- NOTE | 2016-12-15 13:52 | DRSVH ---
PROCEDURE: X-RAY BARIUM SWALLOW WITH FOOD & VIDEOGRAPHY ([id number]) INDICATIONS: concern for aspiration TECHNIQUE: Examination was conducted in conjunction with speech pathology per standard protocol. In the lateral projection, filming was performed of the patient swallowing. AP projection filming may also be performed with patient swallowing. COMPARISON: [facility], CR, XR BARIUM SWALLOW FOOD & VIDEO, 11/27/2015, 13:27. FINDINGS: Function: The oral preparatory phase appears normal, with proper containment. The subsequent oral pr opulsive phase, pharyngeal phase, and esophageal phase of swallowing also appear normal with all prof fered substances. Laryngeal penetration with thin liquids noted.. Mild vallecular pooling present. The attending physician was personally present in the room during the examination. Morphology: No cricopharyngeal bar is identified. No cervical esophageal webs. No Zenker's diverti culum. No strictures. IMPRESSION: Laryngeal penetration. Dictated by: Alverto PATEL Interpreted: Mynor Dotson MD on 12/15/2016 at 13:50 Transcribed by: VIVIAN on 12/15/2016 at 13:51 Approved by: Mynor Dotson M.D. on 12/15/2016 at 15:53
--- NOTE | 2016-12-15 14:35 | PCM.DIMED ---
Donna Trejo DO 12/15/16 1425: Discharge Instructions Date of Service December 15, 2016 Dates of Hospitalization December 09, 2016 at 19:23 Discharge Diagnosis Discharge Diagnosis -Atrial fibrillation -Aspiration -Congestive heart failure -History of seizures -Chronic arthritis -High cholesterol -Chronic anemia Diet Other (Dysphagia/mechanical Heart Healthy diet with NECTAR thick liquids. ) Activity No restrictions, Other (Activity as tolerated. ) Call your provider Fever or Chills, Chest pain, Excessive diarrhea, Weakness (unilateral), Other ( If you develop any new or concerning symptoms, contact your primary care physician. ) Patient Instructions Followup with your primary care physician within the next week to review this hospital stay and any concerning symptoms you may have. It is also recommended that you follow up with a Speech therapist due to the results of your swallow study. Please discuss this with your primary care physician. . Follow-up Provider: Karen Ross MD Follow-up with PCP in: 1 week Devan Arcos MD 12/15/16 1634: Discharge Instructions Attending's Statement The patient was seen and examined together with Dr. Trejo on 12/15/2016 and I agree with the history, exam and plan as outlined in the note above. . Donna Trejo DO December 15, 2016 14:25 Devan Arcos MD December 15, 2016 16:34
--- NOTE | 2016-12-15 15:07 | NUR ---
Social Work Note: Readiness for Discharge Data& Assessment: Per MD pt is getting closer to being medically ready for discharge. SW met with pt at bedside to confirm discharge plan and assess for any unmet needs. Pt continues to decline home health services and confirmed plan to discharge home via POV with resume care-giving with [facility]. LEONEL contacted Xiao from [facility] ([phone]) to notify her that pt may be discharged in the next 24 hours. Pt regularly scheduled care-giving is between 9am-3p.m. LEONEL spoke with pt son MARTINA ([phone]) and confirmed that he will be transporting pt home when medically ready. LEONEL provided RN with pt son phone number as well just in case pt is discharged later tonight. Pt denies any other needs at this time. No other discharge needs identified at this time. SW to continue to follow if any other needs arise. Plan: Anticipated discharge home via POV with resume [facility] care-giving. Pt denies any other needs at this time. No other discharge needs identified at this time. SW to continue to follow if any other needs arise. ALDO Avendaño
--- NOTE | 2016-12-15 15:36 | PCM.DC.MED ---
Discharge Summary Date of Service December 15, 2016 Dates of Hospitalization Date of Hospital Admission December 09, 2016 at 19:23 Date of Discharge: December 15, 2016 Providers: Admitting Physician: Eliot Fontaine MD Primary Care Physician: Karen Ross MD Attending Physician: Eliot Fontaine MD Diagnosis at Time of Discharge Diagnosis at Time of Discharge -Acute hypoxemic respiratory failure. Present on admission. Resolved. -Possible aspiration, acute on chronic. Present on admission. Ongoing -Atrial fibrillation with rapid ventricular response, chronic. Present on admission. Ongoing. -Acute on chronic heart failure, diastolic. Present on admission. -Lactic acidosis. Present on admission. Resolved. -Seizures, chronic. -Hyperlipidemia, chronic. -Depression chronic. -Arthritis, chronic. -History of chronic anemia. Consultations Speech therapy Physical therapy Procedures XRay, CTs & MRIs (12/09/16) X-RAY CHEST ONE VIEW, PORTABLE IMPRESSION: 1. Mild cardiomegaly as before, without acute cardiopulmonary disease. 2. Large retrocardiac hiatal hernia. Dictated and approved by: Robin Corcoran M.D. on 12/09/2016 at 13:58 (12/13/16) X-RAY PICC LINE PLACEMENT BY NURSE IMPRESSION: Tip of PICC extends to the region of the cavoatrial junction. Dictated and approved by: Bennie Martino M.D. on 12/12/2016 at 22:07 Date of Service: 12/13/16 0918 PROCEDURE: CT ANGIO CHEST PULMONARY EMBOLISM ([id number]) INDICATIONS: shortness of breath, tachycardia IMPRESSION: No evidence of pulmonary embolism. Left basilar consolidation which could represent scar/atelectasis versus pneumonia. Please correlate clinically. Moderate hiatal hernia Cardiomegaly. Dictated by: Mynor Dotson M.D. on 12/13/2016 at 15:39 Cardiac Echo Impression (12/04/16) ECHOCARDIOGRAM REPORT Interpretation Summary There is a prominent hiatal hernia behind the left atrium. There is mild- moderate concentric left ventricular hypertrophy. Left ventricular systolic function is normal without focal wall motion abnormalities. The ejection fraction is estimated to be 55-60%. LVEF has remained stable. The right ventricle grossly appears normal in size with probable normal systolic function. The right ventricular systolic pressure is estimated at 24mmHg assuming a right atrial pressure of 3 mm Hg. Compared to the prior echo exam, there has been a decrease in the severity of pulmonary hypertension. The left atrium is severely dilated. The right atrium is mildly dilated. There is mild mitral regurgitation. MR has decreased since prior study. There is no other significant valvular heart disease. The aortic root is normal size. Reading Physician:PM Brief History Per admission history and physical on 12/09/16. Eliot Fontaine MD Jacqueline Rodriguez is a 86 yo female with Atrial fibrillation on Coumadin, Diastolic heart failure, Hypertension who presents to [facility] emergency department from Urgent care due to persistent cough. She was feeling well until this morning when she woke with a cough and shortness of breath. Cough was productive of thick whitish sputum. Also complained of pleuritic chest pain due to the coughing. Nebulizer treatment only briefly helped to relieve her symptoms. She denies fever or chills. No sick contacts. He caregiver saw who sick she looked and took her to the Urgent Care clinic She was was seen in Urgent Care, who noted tachycardia. Per pt's caregiver, the pt is frequently noncompliant with her medications and home oxygen 3 L. The pt was admitted on 12/03-12/05 records reviewed showed patient had chest pain. Echocardiogram showed heart function actually improved since her last echo. Plan to continue her metoprolol, Plavix and statin. Troponin negative. Dr. Marley has seen the patient and determined that this is purely musculoskeletal and no further workup indicated. Case discussed with Dr Pacheco, tachycardia noted and responding to Metoprolol IV. Neb treatment, Solu-Medrol and antibiotics initiated Hospital Course Jacqueline Rodriguez is a 86-year-old female with atrial fibrillation, diastolic heart failure and hypertension who sent to the emergency department from Urgent care due to persistent cough and increasing shortness of breath. Admitted for acute respiratory failure, hypotension and atrial fibrillation with rapid ventricular response. 1. Acute hypoxemic respiratory failure. Present on admission. Resolved. -Likely secondary to acute on chronic heart failure, possibly triggered by viral URI, aspiration and/or Afib with RVR or less likely PE. Questionable diagnosis of COPD, HCAP (patient discharged 12/05/16). -Patient denied diagnosis of COPD, quit smoking in 1984 and stated nebulizers listed in her active medication list were prescribed following a prior aspiration pneumonia. -Lactic acid normalized. Procalcitonin was negative, normal WBC, patient denied fevers, chills. -Chest xray was negative for acute process. -Respiratory viral PCR was negative -D-dimer elevated, 1.[address] angio ordered. Patient was pre-treated prior to CT scan due to contrast allergy. -Patient received ipratropium and levalbuterol Q4 hours and levalbuterol Q2 hours as needed. Duonebs changed to atrovent/xopenex due to tachycardia with the Duonebs. -Followed CBC 2. Concern for aspiration, acute on chronic. Present on admission. Stable. -Patient reported a history of aspiration pneumonia. Chart review revealed a modified barium swallow study in November of 2015. Based on this study speech recommended a stimulation diet, pudding thick liquids and outpatient speech therapy. -Patient clinically with no signs of infection and persistent cough attributed to reflux and aspiration. -Speech therapy was consulted and a modified barium swallow completed on 12/15 and speech recommending dysphagia mechanical diet with nectar thick liquids. -Patient will need close followup as an outpatient. 3. Atrial fibrillation with rapid ventricular response, chronic. Present on admission. Presumed stable. -Likely triggered by the coughing and respiratory distress. Heart rate in 120- 130s on admission, which improved with metoprolol. -Previously anticoagulated on Coumadin, reportedly discontinued due to bleeding risk. -Patient was continued on clopidogrel and metoprolol 50mg bid 4. Acute on chronic heart failure, diastolic. Present on admission. Presumed stable. -Patient hypotensive (SBP 80s-90s, DBP 50-60) at presentation and started on IV fluids. Additionally her diuretic was held and she became mildly fluid overloaded. IV fluids were then stopped and patient diuresed with IV furosemide -An Echocardiogram on 12/04/16 demonstrated a stable EF of 55-60% and a decrease in severity of pulmonary hypertension and mitral regurgitation compared to prior ECHO (02/05/15). -Patient was continued on metoprolol tartrate 50mg PO BID, oral furosemide 20mg daily. -Daily weights and I/Os monitored. 5. Lactic acidosis. Present on admission. Resolved. -Likely due to tissue hypoxia secondary to respiratory distress/coughing and Albuterol -4.8 on admission, trended down 6 Seizures, chronic. Present on admission. Presumed stable. -Patient was continued on 500 mg bid 7. Hyperlipidemia, chronic. Present on admission. Presumed stable. -Patient was continued on Atorvastatin 40 mg daily 8. Depression chronic. Present on admission. Presumed stable. -Patient was continued on fluoxetine and mirtazapine. 9. Arthritis, chronic.Present on admission. Presumed stable. -Patient was continued on Acetaminophen 10. History of chronic anemia. Present on admission. Presumed stable. -Hb 13, Hct 39.5. Labs monitored daily, Hb/Hct stable. Exam Vital Signs (Last) Date Time Temp Pulse Resp B/P Pulse Ox O2 Delivery O2 Flow Rate FiO2 12/15/16 12:58 80 18 92 Nasal Cannula 2.50 12/15/16 12:05 91/58 12/15/16 12:00 37.0 12/12/16 13:00 40 Exam General: Elderly female in no acute distress. Communicating appropriately. HEENT: Normocephalic, atraumatic. PERRL, anicteric sclerae, moist conjunctivae, oral mucosa moist/pink Neck: Supple with full range of motion. No jugular venous distension. Cardiovascular: Regular rate, irregularly irregular rhythm with no murmurs, rubs , or gallops appreciated Pulmonary: Symmetric chest rise with equal air entry bilaterally. Lung sounds diminished but grossly clear to auscultation with no wheezing, rales or rhonchi. Abdomen: Bowel tones present. Soft, nontender, nondistended. Extremities: Warm, well perfused, no edema, no clubbing or cyanosis. Skin: Normal temperature, turgor, and texture; no rash or ulcerations. Neurological: Alert and oriented to person, place and time. No focal deficits. Psychiatric: Normal mood and affect. Appropriately interactive. Test 12/09/16 00:00 12/10/16 03:15 12/10/16 10:08 12/11/16 05:10 Pro-B-Type Natriuretic Peptide 2270pg/mL (0-738) Hold Urine Received (Received) Prothrombin Time 10.2sec (8.1-12.5) Prothromb Time International Ratio 0.95ratio Activated Partial Thromboplast Time 25.2sec (22.8-33.0) D-Dimer 1.47mg/L FEU (<0.50) Hematology Comments Test 12/12/16 08:31 12/13/16 02:30 12/14/16 04:30 12/15/16 06:11 Lactic Acid Level 1.9mmol/L (0.4-2.0) Magnesium Level 2.4mg/dL (1.6-2.6) Procalcitonin 0.09ng/mL (0.00-0.08) White Blood Count 8.2th/mm3 (3.8-10.1) Red Blood Count 3.96mil/mm3 (3.90-5.20) Mean Corpuscular Volume 93.2fL (81-100) Mean Corpuscular Hemoglobin 29.5pg (27.0-35.0) Mean Corpuscular Hemoglobin Concent 31.7% (32.0-37.0) Red Cell Distribution Width 16.7% (12.3-15.4) Platelet Count 309bil/L (150-400) Neutrophils (%) (Auto) 78.5% (40-74) Lymphocytes (%) (Auto) 15.1% (14-46) Monocytes (%) (Auto) 5.1% (4-12) Eosinophils (%) (Auto) 0% (0-5) Basophils (%) (Auto) 0.2% (0-3) Total Bilirubin 0.3mg/dL (0.0-1.2) Aspartate Amino Transf (AST/SGOT) 18U/L (0-50) Alanine Aminotransferase (ALT/SGPT) 12U/L (0-32) Alkaline Phosphatase 50U/L (25-165) Total Protein 6.0g/dL (6.4-8.4) Albumin 3.1g/dL (3.4-5.0) Hemoglobin 11.9g/dL (12.0-15.6) Hematocrit 38.0% (35.0-46.0) Sodium Level 143mEq/L (134-144) Potassium Level 4.2mEq/L (3.5-5.2) Chloride Level 97mEq/L (97-108) Carbon Dioxide Level 38mmol/L (18-29) Blood Urea Nitrogen 31mg/dL (8-27) Creatinine 0.57mg/dL (0.57-1.00) Estimat Glomerular Filtration Rate 144mL/min (>59) Glucose Level 84mg/dL (60-99) Calcium Level 9.0mg/dL (8.5-10.1) Troponin T < 0.010ug/L (0.0-0.011) Test 12/15/16 12:43 Hold [place] Top Tube Received (Received) Microbiology Results 12/09/16 Blood Culture -no growth at 2days 12/10/16 Resp viral PCR- negative Discharge Medications Discharge Medications Acetaminophen (Tylenol Arthritis) 650 Mg Tablet.er 1,300 MG PO HS (Reported) Acetaminophen (Tylenol Arthritis) 650 Mg Tablet.er 650 MG PO MORNING (Reported) Atorvastatin (Lipitor) 40 Mg Tablet 40 MG PO HS (Reported) Cholecalciferol (Vitamin D3) (Vitamin D3) 1,000 Unit Tab.chew 1,000 UNIT PO DAILY (Reported) Clopidogrel Bisulfate (Plavix) 75 Mg Tablet 75 MG PO DAILY Prescribed by: LOUISE PEREZ DO Divalproex (Depakote DR) 500 Mg Tablet 500 MG PO BID (Reported) Swallowed whole without chewing to avoid local irritation of the mouth and throat. Fluoxetine (Prozac) 40 Mg Capsule 40 MG PO DAILY (Reported) Furosemide (Furosemide) 40 Mg Tablet 20 MG PO 829,16 Prescribed by: JAY US DO Metoprolol Tartrate (Metoprolol Tartrate) 25 Mg Tablet 50 MG PO BIDWM Prescribed by: JAY US DO Ranitidine (Ranitidine) 150 Mg Capsule 150 MG PO BID (Reported) As needed Ipratropium/Albuterol Sulfate (Iprat-Albut 0.5-3(2.5) mg/3 mL Inhalant Soln) 3 Ml Ampul.neb 3 ML IH QID PRN PRN For Shortness of Breath (Reported) Mirtazapine (Remeron) 45 Mg Tablet 45 MG PO HS PRN PRN Insomnia (Reported) Sennosides (Senna-Extra) 17.2 Mg Tablet 17.2 MG PO HS PRN PRN For Constipation ( Reported) Followup Plan Discharge Diet: Other (Dysphagia/mechanical Heart Healthy diet with NECTAR thick liquids. ) Discharge Activity: No restrictions, Other (Activity as tolerated. ) Patient Instructions Followup with your primary care physician within the next week to review this hospital stay and any concerning symptoms you may have. It is also recommended that you follow up with a Speech therapist due to the results of your swallow study. Please discuss this with your primary care physician. . Follow-up Provider: Karen Ross MD Follow-up with PCP in: 1 week Time spent Greater than 30 minutes was spent in preparation of discharge with greater than 50% of that time dedicated to patient counseling and coordination of care. . Attending Statement The patient was seen and examined together with Dr. Trejo on 12/15/2016 and I agree with the history, exam and plan as outlined in the note above. . copies to: Karen Ross MD, Courtney M DO December 15, 2016 15:29 Devan Arcos MD December 16, 2016 16:17
--- NOTE | 2016-12-15 19:29 | NUR ---
Discharge Pt discharged to home with transport by her son. Pt PICC line dc'd intact by IV therapy. Telemetry removed and tech notified. [place] Catheter dc'd. Pt's discharge instructions and follow up appointments reviewed. An educational discussion was had with Pt and her son about her new dysphagia mechanical diet with nectar thick liquids. Pt and son voiced understanding. Pt's belongings were gathered to be sent home with pt. Pt was escorted to her son's POV by COMPUTER [employer]PLICATIONS ENGINEER.
== END 2016-12-15 19:00 | disposition home or self-care (01) | DRG 189 ==
LOC: SED 13:13 → OBSVTOIN 19:23 → PCC 19:23
PROVIDERS: ADMIT Hospitalist; ATTEND Hospitalist
PROC: 4A033R1 Measurement of Arterial Saturation, Peripheral, Percutaneous Approach (ICD-10-PCS; principal; 2016-12-11)
DX: J96.01 Acute respiratory failure with hypoxia (principal); I50.33 Acute on chronic diastolic (congestive) heart failure; E87.2 Acidosis; I48.2 Chronic atrial fibrillation; G40.909 Epilepsy, unspecified, not intractable, without status epilepticus; F32.9 Major depressive disorder, single episode, unspecified; E78.5 Hyperlipidemia, unspecified; Z87.891 Personal history of nicotine dependence; Z79.02 Long term (current) use of antithrombotics/antiplatelets; D64.9 Anemia, unspecified; Z66 Do not resuscitate

== ENCOUNTER 2017-02-23 00:14 | Inpatient (IN) | payer MEDICARE ==
[~2017-02-23] VITALS: Ht 157.5 cm; Wt 73.8 kg
[2017-02-23] VITALS (12 sets, daily range): BP systolic 100–126; BP diastolic 62–87; PULSE 64–122; RESP 15–22; O2SAT 91–98
[~2017-02-23 00:14] MED LIST changes: -CYCL10TA9 PO; -O2 NASAL; -OXYC-474 PO; -POLY17PO6 PO
--- NOTE | 2017-02-23 00:24 | ED.REPORT ---
HPI-General Illness Date of Service Feb 23, 2017 ED Provider: Dr. Ernesto Chong MD An 86 year old female with a history of A-fib on Plavix, CHF, hyperlipidemia, chronic anemia, peptic ulcer disease, seizure disorder and recent aspiration pneumonia presents to the ED via EMS with chest pain that began several hours prior to arrival . Symptom onset began while the patient was lying in bed. She reports similar symptoms previously that have resolved without intervention. Associated symptoms include a non-productive cough and lower extremity edema. She denies any nausea or vomiting. Patient was recently seen in the ED on 12/09 for dyspnea and was admitted for acute hypoxia and respiratory failure. She was discharged in stable condition on 12/15 with plan to follow up with PCP. Nursing Notes Stated Complaint: CHEST PAIN Nursing Notes Reviewed: Yes Allergies: Coded Allergies: Contrast Media (Verified Allergy, Severe, RASH, 12/09/16) chlorpromazine (Verified Allergy, Severe, RASH ORAL SWELLING, 12/09/16) RASH & SWELLING codeine (Verified Allergy, Severe, RASH,nausea,hives, 12/09/16) gentamicin (Verified Allergy, Severe, EYES CLOSE WITH THE EYE DROPS, ) iodine (Verified Allergy, Severe, RASH, 12/09/16) povidone (Verified Allergy, Severe, RASH, 12/09/16) prochlorperazine (Verified Allergy, Severe, RASH, THROAT SWELLING AND DIFFICULTY SWALLOWING, 12/09/16) tetanus toxoid, adsorbed (Verified Allergy, Severe, SWELLING, SOB, 12/09/16) hydromorphone (Verified Allergy, Intermediate, Hallucinations, 12/09/16) aspirin (Verified Allergy, Unknown, interacts with medication Depakote, 12/09/16) nickel (Verified Allergy, Unknown, Rash, 12/09/16) hydromorphone HCl (Verified Adverse Reaction, Severe, Hallucinations, ) warfarin (Verified Adverse Reaction, Unknown, 12/09/16) States "I didn't get my PT tested and almost bled to " Uncoded Allergies: NICKEL (Allergy, Severe, RASH, 08/13/15) Meclizine (Allergy, Unknown, UNKNOWN, 08/13/15) Scheduled Acetaminophen (Tylenol Arthritis) 650 Mg Tablet.er 1,300 MG PO HS Acetaminophen (Tylenol Arthritis) 650 Mg Tablet.er 650 MG PO MORNING Atorvastatin (Lipitor) 40 Mg Tablet 40 MG PO HS Cholecalciferol (Vitamin D3) (Vitamin D3) 1,000 Unit Tab.chew 1,000 UNIT PO DAILY Clopidogrel Bisulfate (Plavix) 75 Mg Tablet 75 MG PO DAILY Divalproex DR (Depakote DR) 500 Mg Tablet 500 MG PO BID Swallowed whole without chewing to avoid local irritation of the mouth and throat. Fluoxetine (Prozac) 40 Mg Capsule 40 MG PO DAILY Furosemide (Furosemide) 40 Mg Tablet 20 MG PO 0830,16 Metoprolol Tartrate (Metoprolol Tartrate) 25 Mg Tablet 50 MG PO BIDWM Ranitidine (Ranitidine) 150 Mg Capsule 150 MG PO BID Scheduled PRN Ipratropium/Albuterol Sulfate (Iprat-Albut 0.5-3(2.5) mg/3 mL Inhalant Soln) 3 Ml Ampul.neb 3 ML IH QID PRN PRN For Shortness of Breath Mirtazapine (Remeron) 45 Mg Tablet 45 MG PO HS PRN PRN Insomnia Sennosides (Senna-Extra) 17.2 Mg Tablet 17.2 MG PO HS PRN PRN For Constipation General Time Seen by MD: 00:23 Chief Complaint Chest pain Hx Obtained From: Patient Arrived By: Ambulance Sudden in Onset?: No Onset Occurred: 1 - 4 hours ago Symptom Duration: Since onset Location: : Chest Quality: Same as prior, Painful Radiation: : Does not radiate Severity: Current: Moderate Severity: Maximum: Moderate Associated with: Reports: Cough, Shortness of breath, Denies: Nausea, Vomiting Pertinent Negative: Pt denies other symptoms Recent Healthcare: Recent doctor visit, Recent hospitalization Past Medical History Past Medical History 1. Atrial fibrillation on Plavix due to history of GI bleeding 2. CHF 3. Hyperlipidemia 4. Peptic Ulcer Disease 5. Seizure disorder 6. Depression 7. Anemia 8. Rheumatic fever 9. History of aspiration pneumonia 10. History of seizures on divalproex Past Surgical History 1. Laminectomies x2 2. Spinal fusions x4 3. Bladder surgeries x2 4. Hysterectomy 5. Tonsillectomy 6. Bowel resection 7. 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 Ambulatory Status Walker Review of Systems Full Review of Systems Respiratory: Reports: Non-productive cough Cardiovascular: Reports: Chest pain GI: Denies: Nausea, Vomiting Musculoskeletal: Reports: Extremity swelling (LE edema) Complete sys rev & neg: except as marked. Physical Exam Vital Signs Vital Signs Date Time Temp Pulse Resp B/P Pulse Ox O2 Delivery O2 Flow Rate FiO2 02/23/17 00:37 36.9 110 15 123/74 93 Nasal Cannula 2 Neck: Supple, Non-tender, Full range of motion Extremities: Vascular intact, Neuro intact, No swelling, No tenderness Skin: Warm, Dry, No cyanosis Neurologic: Alert, Oriented, Nonfocal Psychiatric: Mood/affect normal, Behavior normal, Normal thought content General/Constitutional: Awake, Alert, No acute distress Head / Eyes: Atraumatic, Normocephalic, PERRL ENT: Atraumatic, Airway patent Mouth: Positive: Mucous membranes dry Respiratory / Chest: Atraumatic, Breath sounds NL, Breath sounds = bilat, No respiratory distress CHEST: Tenderness to chest wall upon palpitation (reproducible pain) Cardiovascular: Regular rhythm, Heart sounds NL, Peripheral circulation NL, Pulses = bilaterally Heart Rate / Rhythm: Positive: Irreg irregular rhythm CARDIO: No edema Abdomen: Atraumatic, Soft, Non-tender Interpretation & Diagnostics Lab Results Interpretation Result Diagram: 02/23/170 02/23/17 0030 Test 02/23/17 00:30 White Blood Count 8.5th/mm3 (3.8-10.1) Red Blood Count 3.83mil/mm3 (3.90-5.20) Hemoglobin 10.9g/dL (12.0-15.6) Hematocrit 34.8% (35.0-46.0) Mean Corpuscular Volume 90.9fL (81-100) Mean Corpuscular Hemoglobin 28.5pg (27.0-35.0) Mean Corpuscular Hemoglobin Concent 31.3% (32.0-37.0) Red Cell Distribution Width 18.0% (12.3-15.4) Platelet Count 341bil/L (150-400) Neutrophils (%) (Auto) 62.7% (40-74) Lymphocytes (%) (Auto) 25.7% (14-46) Monocytes (%) (Auto) 9.8% (4-12) Eosinophils (%) (Auto) 1.2% (0-5) Basophils (%) (Auto) 0.1% (0-3) Prothrombin Time 10.0sec (8.1-12.5) Prothromb Time International Ratio 0.94ratio Activated Partial Thromboplast Time 22.6sec (22.8-33.0) Sodium Level 141mEq/L (134-144) Potassium Level 4.3mEq/L (3.5-5.2) Chloride Level 98mEq/L (97-108) Carbon Dioxide Level 21mmol/L (18-29) Blood Urea Nitrogen 30mg/dL (8-27) Creatinine 0.84mg/dL (0.57-1.00) Estimat Glomerular Filtration Rate 92mL/min (>59) Glucose Level 107mg/dL (60-99) Lactic Acid Level 2.0mmol/L (0.4-2.0) Calcium Level 9.1mg/dL (8.5-10.1) Magnesium Level 2.2mg/dL (1.6-2.6) Total Bilirubin 0.2mg/dL (0.0-1.2) Aspartate Amino Transf (AST/SGOT) 16U/L (0-50) Alanine Aminotransferase (ALT/SGPT) 8U/L (0-32) Alkaline Phosphatase 72U/L (25-165) Pro-B-Type Natriuretic Peptide 2338pg/mL (0-738) Total Protein 7.0g/dL (6.4-8.4) Albumin 4.0g/dL (3.4-5.0) Procalcitonin 0.07ng/mL (0.00-0.08) Hold Saleh Top Tube Received (Received) ECG Interpretation ECG Interpretation: Atrial fibrillation Rate 117 bpm Low voltage, precordial leads Prolonged QT interval Time: 00:20 Interpreted by: ED physician ECG Interpretation: A-fib Rate 114 bpm Low voltage, precordial leads Time: 02:29 Interpreted by: ED physician X-Ray Chest Interpretation Chest Xray Interpretation: IMPRESSION: Right middle lobe infiltrate Interpretation / Wet Read by: Wet read ED physician Re-Eval/Medical Decision Med Decision/Clinical Course 86-year-old with recent pneumonia presents with chest pain which is completely pleuritic and elicitable by palpation. She has obscuration of her right cardiac border consistent with a right middle lobe infiltrate. No other significant findings to suggest coronary ischemia. Admitted with presumptive aspiration pneumonia. Begun with Unasyn and azithromycin. Time of Eval: 01:23 Re-Evaluation/Progress Note: Pt is rechecked. Vitals are stable. She is informed of the plan to obtain repeat EKG and chest X-ray. Time of Eval: 02:44 Patient Status: Condition improved Re-Evaluation/Progress Note: Patient is re-evaluated. All questions about the treatment plan to admit are addressed. The patient understands and agrees with the intended treatment plan to admit for pneumonia and IV antibiotics. Consultation : Referral / Consult Name: Cindy Casas DO Consulted With: Hospitalist Call Returned at: 02:40 Process Technician: Will see patient, Agrees with eval, Agrees with plan, Accepts admit Counseled Regarding: Diagnosis, Lab results, Need for admission Discharge & Departure Primary Impression: Pneumonia Pneumonia type: due to unspecified organism Laterality: right Lung location : middle lobe of lung Qualified Code: J18.1 - Lobar pneumonia, unspecified organism Additional Impressions: Chest wall tenderness Atrial fibrillation Atrial fibrillation type: chronic Qualified Code: I48.2 - Chronic atrial fibrillation Aspiration pneumonia Aspiration pneumonia type: unspecified Laterality: right Lung location: middle lobe of lung Qualified Code: J69.0 - Pneumonitis due to inhalation of food and vomit Disposition: ADMITTED TO HOSPITAL Discharge Condition All VS Reviewed: Yes Condition: Stable Referrals: Karen Ross MD (PCP) Scribe Attestation Portions of this note were transcribed by Cheryl Montalvo. I, Dr. Chong personally performed the history, physical exam and medical decision-making; I reviewed and confirmed the accuracy of the information in the transcribed note. Signed by: Jac Garcia, 02/23/17 0244. copies to: Karen Ross MD, Christopher W MD Feb 23, 2017 00:24 CHERYL MONTALVO Feb 23, 2017 00:31
[2017-02-23 00:49] LABS: BASOPHILS % (AUTO) 0.1 % (0-3); EOSINOPHILS % (AUTO) 1.2 % (0-5); MONOCYTES % (AUTO) 9.8 % (4-12); Mean Corpuscular Hemoglobin 28.5 pg (27.0-35.0); Mean Corpuscular Volume 90.9 fL (81-100); NEUTROPHILS % (AUTO) 62.7 % (40-74); Platelet Count 341 bil/L (150-400)
[2017-02-23] MEDS: fentaNYL-PF 50 mCg/mL 2 mL Inj IVPUSH PRN ×2 (01:29→02:38)
[2017-02-23 01:36] LABS: INR 0.94 ratio
[2017-02-23 02:06] LABS: Magnesium 2.2 mg/dL (1.6-2.6); TROPONIN T 0.01 ug/L (0.0-0.011)
[2017-02-23] MEDS ORDERED: Ampicillin-Sulbactam Inj 3,000 MG in 0.9% Sodium Chloride 100 ML IV ONE (02:20)
[2017-02-23] MEDS ORDERED: Azithromycin Inj 500 MG in Dextrose 5% w/Vial Mate 250 ML IV ONE (02:20)
[2017-02-23] MEDS ORDERED: Ondansetron 2 mg/mL 2 mL Inj IVPUSH PRN ×2 (02:45→03:50)
--- NOTE | 2017-02-23 03:12 | NUR ---
Admit A&O pt arrived to unit via stretcher with IV abx running. Pt c/o chest pain 4/10, worse with coughing. States to live at home, alone. Uses wc with ambulation and on 2L of O2 via NC which is also her baseline. Requires 3L with activity. Pt oriented to room and facility, denies having questions. States was here 2 mo ago with similar dx. Admit to be complete. Pt not yet seen hospitalist. Bed in low position, upper rails up, call light in reach. Will continue to monitor.
--- NOTE | 2017-02-23 03:45 | PCM.HPMED ---
Subjective Date of Service Feb 23, 2017 Primary Provider: Admitting Physician: Cindy Casas DO Primary Care Physician: Karen Ross MD Attending Physician: Cindy Casas DO Chief Complaint: Chest pain History of Present Illness: Jacqueline Rodriguez is an 86-year-old woman with past medical history significant for Atrial fibrillation on Coumadin, Diastolic heart failure, COPD on 2 L oxygen at baseline, hypertension, chronic anemia, peptic ulcer disease, seizure disorder who presented to [facility] emergency department today via EMS due to chest pain that began several hours prior to arrival. Patient stated that the symptoms began while she was laying in bed. She has had similar episodes in the past that resolved spontaneously. Patient also notes a an intermittently productive cough cough that has worsened and worsened lower extremity edema as well as worsening shortness of breath. Patient notes that she was unable to put on her shoes due to her lower extremity swelling. Patient was recently admitted for acute hypoxia respiratory failure and discharged on 12/15. Patient notes that the chest pain is reproducible. Patient denies any fevers or chills. She denies any nausea/vomiting, diarrhea, abdominal pain, orthopnea, paroxysmal nocturnal dyspnea. In the emergency department her vital signs were notable for pulse of 110 and an O2 saturation of 93% on 2 L nasal cannula. Chest x-ray was notable for right middle lobe infiltrate. Patient was initiated on azithromycin and Unasyn given her history of aspiration. Review of Systems: A comprehensive review of systems was conducted with the patient and found to be negative except as above in the History of Present Illness. Allergies Coded Allergies: Contrast Media (Verified Allergy, Severe, RASH, 12/09/16) chlorpromazine (Verified Allergy, Severe, RASH ORAL SWELLING, 12/09/16) RASH & SWELLING codeine (Verified Allergy, Severe, RASH,nausea,hives, 12/09/16) gentamicin (Verified Allergy, Severe, EYES CLOSE WITH THE EYE DROPS, ) iodine (Verified Allergy, Severe, RASH, 12/09/16) povidone (Verified Allergy, Severe, RASH, 12/09/16) prochlorperazine (Verified Allergy, Severe, RASH, THROAT SWELLING AND DIFFICULTY SWALLOWING, 12/09/16) tetanus toxoid, adsorbed (Verified Allergy, Severe, SWELLING, SOB, 12/09/16) hydromorphone (Verified Allergy, Intermediate, Hallucinations, 12/09/16) aspirin (Verified Allergy, Unknown, interacts with medication Depakote, 12/09/16) nickel (Verified Allergy, Unknown, Rash, 12/09/16) hydromorphone HCl (Verified Adverse Reaction, Severe, Hallucinations, ) warfarin (Verified Adverse Reaction, Unknown, 12/09/16) States "I didn't get my PT tested and almost bled to " Uncoded Allergies: NICKEL (Allergy, Severe, RASH, 08/13/15) Meclizine (Allergy, Unknown, UNKNOWN, 08/13/15) Home Medications Jacqueline Rodriguez. [id number] 1930 01/27/2017 09:40 AM 08/09 Start Date Medication Directions Stop Date 11/28/2016 atorvastatin 40 mg tablet take 1 tablet by oral route every day in the evening for cholesterol 01/27/2017 clopidogrel 75 mg tablet take 1 tablet by oral route every day 04/24/2009 Depakote 500 mg Tab take 1 tablet (500MG) by ORAL route 2 times every day ipratropium bromide 0.02 % solution for inhalation inhale 2.5 milliliter by inhalation route 4 times every day via nebulizer 01/27/2017 Lasix 20 mg tablet TAKE 1 TABLET BY MOUTH TWICE A DAY 01/27/2017 metoprolol tartrate 50 mg tablet take 0.5 tablet by oral route 2 times every day with meals 05/07/2015 Miralax 17 gram/dose oral powder take (17G) by oral route every day mixed with 8 oz. water, juice, soda, coffee or tea NEEDED 10/20/2016 mirtazapine 45 mg tablet take 1 tablet by oral route every day before bedtime for sleep/mood 12/17/2015 oxycodone 5 mg tablet take 1 tablet by oral route every 4 hours as needed for pain; may give with acetaminophen potassium chloride ER 10 mEq capsule,extended release take 1 capsule by ORAL route every day with food 08/01/2016 Prozac 40 mg capsule take 1 tablet by mouth daily for mood. 01/27/2017 ranitidine 150 mg tablet take 1 tablet by oral route 2 times every day for heartburn 07/02/2015 Tylenol Arthritis Pain 650 mg tablet,extended release take 1 every morning and take 2 tablet (1300MG) by oral route every night Vitamin D3 1,000 unit capsule take 1 Tablet by Oral route every day PMH Diastolic congestive heart failure Peptic ulcer disease and Gastritis Atrial fibrillation, Chronic on Coumadin Rheumatic fever History of anemia History of pneumonia Depression Seizure disorder Hyperlipidemia Surgical History 2 laminectomies 4 spinal fusions 2 bladder surgeries Bowel resection Bilat hip replacements Hysterectomy Appendectomy Tonsillectomy Family History She has 2 children who . One of them of cancer and necrotizing skin infection. The other one simply disappeared and presumed that she has full children total. Patient was adopted so parents medical history is unclear Social History Hx Alcohol Use: Yes (rarely, once/month) Hx Substance Use: No Hx Tobacco Use: Yes (quit in 1984) Smoking Status: Former Smoker Exam Vital Signs Vital Sign - Last Date Time Temp Pulse Resp B/P Pulse Ox O2 Delivery O2 Flow Rate FiO2 02/23/17 02:38 96 22 104/79 96 Nasal Cannula 2 02/23/17 00:37 36.9 Exam General: No acute distress, frail elderly woman laying comfortably in hospital bed. HEENT: Normocephalic, atraumatic. External ears without defect. Pupils equal, round, and reactive to light and accommodation. Anicteric sclerae, moist conjunctivae, and no lid lag. Oropharynx free of erythema and cobble stoning with moist mucosa. Neck: Supple with full range of motion. No jugular venous distension. No lymphadenopathy or thyromegaly. Cardiovascular: Regular rate and irregular rhythm with no murmurs, rubs, or gallops appreciated Pulmonary: Clear to auscultation bilaterally with no crackles, wheezes, or rhonchi. Normal respiratory effort with no use of accessory muscles. Abdomen: Bowel tones present. Soft, nontender, nondistended. No hepatosplenomegaly or masses appreciated. Extremities: No clubbing, cyanosis, or lymphadenopathy appreciated. Bilateral nonpitting lower extremity edema of the ankles. Skin: Normal temperature, turgor, and texture; no rash, ulcers, or subcutaneous nodules appreciated. Neurological: Cranial nerves grossly intact. Normal muscle strength, tone, and bulk. Psychiatric: Normal mood and affect. Alert and oriented to person, place, and time. Lab and Diagnostics Result Diagram: 02/23/172902/23/1729 X-Rays, CTs and MRIs Wet read by ED physician noted possible right middle lobe pneumonia. Assessment & Plan Jacqueline Rodriguez is an 86-year-old woman with past medical history significant for Atrial fibrillation on Coumadin, Diastolic heart failure, Hypertension, chronic anemia, peptic ulcer disease, seizure disorder who presented to [facility] emergency department today via EMS due to chest pain that began several hours prior to arrival. Atypical chest pain, present on admission, active -Differential includes costochondritis from coughing from COPD exacerbation versus pneumonia, CHF exacerbation, hiatal hernia -Possible right middle lobe infiltrate unlikely represent pneumonia given patient's normal white count, normal temperature, normal procalcitonin -Plan as below Acute on Chronic Hypoxic Respiratory Failure due to COPD exacerbation. Present on admission, active - continue oxygen supplementation with target 88-92% - DuoNeb scheduled, albuterol when necessary - Patient started azithromycin for presumed aspiration pneumonia will continue. - Prednisone 40 mg 5 days - Respiratory viral PCR - Consider palliative care consultation given the patient's multiple readmissions Diastolic heart failure, present on admission, active -Patient had recent echocardiogram which demonstrated mild improvement from previous. -BNP appears within the usual range for the patient -Continue outpatient medications Atrial fibrillation, Present on admission, active - Chronic issues and not currently on anticoagulations due to bleeding risk - monitor on telemetry - continuing Metoprolol 75 mg bid - continuing Plavix 75 mg daily Seizures, chronic - Continue Depakote 500 mg bid Depression chronic - continue Prozac 40 mg daily Dyslipidemia - continue Atorvastatin 40 mg HS - Acetaminophen as needed for mild pain/fever/headache - Bowel regimen as needed - Antiemetic as needed CODE STATUS: DNR/DNI Patient is admitted under inpatient status with expected length of stay greater than 2 midnights due to severity of presenting symptoms, risk of adverse event, and complexity of treatment plan. Mayra Young DO Feb 23, 2017 02:46 Mayra Young DO Feb 23, 2017 02:46
[2017-02-23] MEDS ORDERED: Albuterol 2.5 mg/3 mL Inhalation Solution NEB PRN (03:50)
[2017-02-23] MEDS ORDERED: Polyethylene Glycol (PEG) 17 Gm Powder PO PRN (03:50)
[2017-02-23] MEDS ORDERED: Alum-Mag Hydrox-Simeth 30 mL Suspension PO PRN (03:50)
[2017-02-23] MEDS ORDERED: predniSONE 20 mg Tablet PO ONE (03:50)
[2017-02-23] MEDS ORDERED: Albuterol-Ipratropium 3 mL Inhalation Solution NEB SCH (06:00)
[2017-02-23] MEDS: fentaNYL-PF 50 mCg/mL 2 mL Inj IV PRN ×4 (07:32→23:53)
[2017-02-23] MEDS ORDERED: Ipratropium 0.02% 0.5 mg/2.5 mL Inhalation Solution NEB PRN (08:20)
[2017-02-23] MEDS: Heparin 5,000 Unit/mL Inj SUBQ SCH ×3 (08:59→23:54)
[2017-02-23] MEDS: predniSONE 20 mg Tablet PO SCH (08:59)
--- NOTE | 2017-02-23 09:48 | DRSVH ---
PROCEDURE: X-RAY CHEST ONE VIEW, PORTABLE ([id number]) INDICATIONS: left sided cp, radiates to left arm TECHNIQUE: One view of the chest was acquired. COMPARISON: [facility], CR, XR CHEST 1VW (PORTABLE), 12/09/2016, 13:35. FINDINGS: Surgical changes and devices: None. Lungs and pleura: No pleural effusions or pneumothorax. Bibasilar patchy airspace opacities present . Mediastinum: Mediastinal contours appear normal. Heart size is normal. Bones and chest wall: No suspicious bony lesions. Overlying soft tissues appear unremarkable. IMPRESSION: Bibasilar atelectasis versus aspiration or pneumonia. Correlate clinically. Dictated by: Alverto Morrow RRA Interpreted: Isidro Hill MD on 02/23/2017 at 9:46 Transcribed by: DANIEL on 02/23/2017 at 9:47 Approved by: Isidro Hill M.D. on 02/23/2017 at 11:52
[2017-02-23] MEDS ORDERED: POLY17PO6 PO (10:02)
[2017-02-23] MEDS ORDERED: IPRA0.2S51 IH (10:02)
[2017-02-23] MEDS ORDERED: POTA10CA42 PO (10:04)
[2017-02-23] MEDS ORDERED: OXYC5CAP4 PO (10:04)
--- NOTE | 2017-02-23 10:09 | NUR ---
Medication reconciliation Medication reconciliation completed from medication list, OV dated 01/27/17, with PCP. List provided by
[2017-02-23] MEDS: Ipratropium 0.02% 0.5 mg/2.5 mL Inhalation Solution NEB SCH ×5 (11:18→20:12)
--- NOTE | 2017-02-23 16:30 | NUR ---
Med Rec Medication dose entered incorrectly by this RN on Med Rec. Pt takes PO Metoprolol Tartrate 50 mg 0.5 mg dose BID. MD notified. 50 mg dose discontinued in Med Rec. Frequent rounding in place, will continue to monitor.
--- NOTE | 2017-02-23 16:34 | NUR ---
Social Work-initial assessment/ multidisciplinary rounds: Data:See initial assessment. Pt is a 86 y/o female who was admitted on 02/23/17 for pneumonia per H&P. Pt's insurance is [employer] and [employer] and PCP is MD Cody. EMR Reviewed. LEONEL met with pt at bedside, SW role explained. Pt is alert and oriented x3. pt resides at home alone where she remains independent with basic ADLS. pt has caregivers 5 times a week, private pay through [facility] [employer] Pt uses a fww and does not drive. Pt has [facility] currently, order received. LEONEL informed Talha with [facility] of pt's admission, access given. pt has SNF history at [facility]. Pt has no LTC insurance or VA benefits. SW discussed DPOA/ advanced directive, pt confirms she has completed this, SW encouraged a copy to be brought in. SW provided pt with discharge planning checklist and encouraged her to call with any questions. SW provided phone number on [facility]. Pt's family to transport home. SW will continue to follow. Assessment:Pt who has HH currently. Plan:Pt to discharge home when medically stable via POV. Pt will need resume HH through [facility] . Pt has caregivers 5 days a week. LEONEL will continue to follow. ALDO Blanton Addendum: 02/23/17 at 1638 by YEIMI SANTORO SS Amended: Links added. Addendum: 02/24/17 at 1134 by YEIMI SANTORO SS pt also has home O2 through [employer]. ALDO Blanton
[2017-02-23] MEDS ORDERED: METO50TA3 PO (16:53)
--- NOTE | 2017-02-23 18:11 | NUR ---
Pain Pt reports chest pain 8/10 when coughing, through out shift, 50 mcg of IV Fentanyl administered x 3 with good resolution of pain. Pt encouraged to continue to contact staff for needs. Call light in reach, will continue to monitor.
[2017-02-24] VITALS (12 sets, daily range): BP systolic 94–124; BP diastolic 61–77; PULSE 88–116; RESP 16–18; O2SAT 90–99
--- NOTE | 2017-02-24 06:32 | NUR ---
Pain c/o sternal pain r/t coughing x2 this shift. Prn oxycodone and fentanyl administered and effective. Currently resting without any complaints.
[2017-02-24] MEDS: fentaNYL-PF 50 mCg/mL 2 mL Inj IV PRN ×4 (06:40→19:56)
[2017-02-24 07:03] LABS: BASOPHILS % (AUTO) 0.1 % (0-3); EOSINOPHILS % (AUTO) 0.4 % (0-5); Mean Corpuscular Hemoglobin 28.5 pg (27.0-35.0); Mean Corpuscular Volume 91.6 fL (81-100); NEUTROPHILS % (AUTO) 57.9 % (40-74); Platelet Count 344 bil/L (150-400)
[2017-02-24 07:21] LABS: Magnesium 2.3 mg/dL (1.6-2.6)
[2017-02-24] MEDS: Ipratropium 0.02% 0.5 mg/2.5 mL Inhalation Solution NEB SCH ×4 (08:01→19:25)
[2017-02-24] MEDS: Heparin 5,000 Unit/mL Inj SUBQ SCH ×3 (08:43→23:48)
[2017-02-24] MEDS: predniSONE 20 mg Tablet PO SCH (08:53)
--- NOTE | 2017-02-24 12:08 | DRSVH ---
PROCEDURE: X-RAY CHEST, TWO VIEWS ([id number]) INDICATIONS: Pneumonia vs atelectasis TECHNIQUE: 2 views of the chest were acquired. COMPARISON: [facility], CT, CT ANGIO CHEST PE, 12/12/2016, 14:34. [facility] , CR, XR CHEST 1VW (PORTABLE), 12/03/2016, 6:13. [facility], CR, XR CHEST 1VW (PORTABLE), 02/23/2017, 0:15. [facility], CR, XR CHEST 1VW (PORTABLE), 12/09/2016, 13:35. [facility], CR, XR CHEST 2VW, 07/01/2016, 10:34. FINDINGS: Surgical changes and devices: None. Lungs and pleura: No pneumothorax. There is mild blunting of the right costophrenic angle which coul d be related to a small effusion. Small granuloma within the right upper lobe.. Moderate hiatal her alayna is present. Mediastinum: Mediastinal contours are normal. Heart size is mildly enlarged. Bones and chest wall: No suspicious bony abnormalities. Soft tissues appear unremarkable. Several healed left inferior posterior lateral rib fractures. IMPRESSION: 1. Moderate hiatal hernia. 2. Calcified granuloma within the right upper lobe redemonstrated. No definite pneumonia is found. 3. Mild blunting of the right costophrenic angle a small effusion cannot be excluded. Dictated by: Alverto Morrow [facility] Interpreted: William Fraser MD on 02/24/2017 at 10:32 Approved by: William Fraser M.D. on 02/24/2017 at 12:06
--- NOTE | 2017-02-24 12:24 | NUR ---
Ambulation, respiratory, and positive blood culture Pt. ambulated x3 in the hallway (used a FWW for balance). She denied SOBOE. Needed 3L/min O2 by NC with activity and 2L/min at rest, same rate as home O2 use. She C/O pleuritic chest pain with cough ( she reported productive of white thick sputum). One positive blood culture (gram positive cocci) - Dr. Leslie was notified about this during morning rounds meeting.
[2017-02-24] MEDS: Vancomycin Dose per Pharmacist XX SCH (17:35)
[2017-02-24] MEDS: guaiFENesin DM 200-20 mg/10 mL Syrup PO PRN (18:23)
[2017-02-24] MEDS ORDERED: 0.9% Sodium Chloride 250 ML ONE (19:52)
[2017-02-24] MEDS: cefTRIAXone Inj 2,000 MG in Dextrose 5% Minibag Plus 50 ML IV SCH (19:54)
--- NOTE | 2017-02-24 22:15 | PCM.CONPHA ---
Subjective Date of Service: Feb 24, 2017 Chest pain Reason for Pharmacy Consult: Vancomycin Dosing Objective Vital Signs Date Time Temp Pulse Resp B/P Pulse Ox O2 Delivery O2 Flow Rate FiO2 02/24/17 20:19 Supplement Oxygen 02/24/17 20:03 36.7 102 18 118/77 96 Nasal Cannula 1.00 02/24/17 19:26 89 16 93 Nasal Cannula 2.00 02/24/17 16:58 36.3 116 18 124/71 96 Nasal Cannula 2.00 02/24/17 16:33 92 16 97 Nasal Cannula 2.00 02/24/17 15:10 Supplement Oxygen 02/24/17 13:09 35.5 88 18 124/76 99 Nasal Cannula 2.00 02/24/17 12:48 94 16 96 Nasal Cannula 3.00 02/24/17 10:01 95 02/24/17 09:00 Supplement Oxygen 02/24/17 08:38 36.4 94 18 94/64 90 Nasal Cannula 1.00 02/24/17 08:02 98 16 93 Nasal Cannula 1.00 02/24/17 05:01 36.0 98 18 115/64 96 Nasal Cannula 1.00 02/24/17 00:00 36.4 106 18 114/74 94 Nasal Cannula 1.00 Intake and Output 02/22/17 02/23/17 02/24/17 00:00 00:00 00:00 Intake Total 644 ml Output Total 1350 ml Balance -706 ml Weight (Kilograms): 72.800 Height (Feet): 5 Height (Inches): 2.00 Test 02/23/17 00:30 02/23/17 02:50 02/23/17 11:25 02/24/17 06:15 Prothrombin Time 10.0sec (8.1-12.5) Prothromb Time International Ratio 0.94ratio Activated Partial Thromboplast Time 22.6sec (22.8-33.0) Lactic Acid Level 2.0mmol/L (0.4-2.0) Pro-B-Type Natriuretic Peptide 2338pg/mL (0-738) Hold Saleh Top Tube Received (Received) Troponin T 0.010ug/L (0.0-0.011) Hold Urine Received (Received) White Blood Count 7.1th/mm3 (3.8-10.1) Red Blood Count 3.58mil/mm3 (3.90-5.20) Hemoglobin 10.2g/dL (12.0-15.6) Hematocrit 32.8% (35.0-46.0) Mean Corpuscular Volume 91.6fL (81-100) Mean Corpuscular Hemoglobin 28.5pg (27.0-35.0) Mean Corpuscular Hemoglobin Concent 31.1% (32.0-37.0) Red Cell Distribution Width 18.0% (12.3-15.4) Platelet Count 344bil/L (150-400) Neutrophils (%) (Auto) 57.9% (40-74) Lymphocytes (%) (Auto) 34.0% (14-46) Monocytes (%) (Auto) 7.0% (4-12) Eosinophils (%) (Auto) 0.4% (0-5) Basophils (%) (Auto) 0.1% (0-3) Sodium Level 141mEq/L (134-144) Potassium Level 4.4mEq/L (3.5-5.2) Chloride Level 102mEq/L (97-108) Carbon Dioxide Level 28mmol/L (18-29) Blood Urea Nitrogen 18mg/dL (8-27) Creatinine 0.66mg/dL (0.57-1.00) Estimat Glomerular Filtration Rate 122mL/min (>59) Glucose Level 90mg/dL (60-99) Calcium Level 9.0mg/dL (8.5-10.1) Magnesium Level 2.3mg/dL (1.6-2.6) Total Bilirubin 0.2mg/dL (0.0-1.2) Aspartate Amino Transf (AST/SGOT) 13U/L (0-50) Alanine Aminotransferase (ALT/SGPT) 7U/L (0-32) Alkaline Phosphatase 67U/L (25-165) Total Protein 6.1g/dL (6.4-8.4) Albumin 3.6g/dL (3.4-5.0) Procalcitonin 0.04ng/mL (0.00-0.08) Assessment/Plan Assessment/Plan Pharmacy management of vancomycin Indication: pneumonia Trough goal: 15-20 Pertinent info: - SCr 0.66, CrCl 58.2 (adj BW). - Patient received vancomycin loading dose of 1250 mg once today at 2142. - Patient with diastolic heart failure. Patient is at risk for some accumulation (BMI 29.4). Also, renal function likely lower than indicated by calculated CrCl due to patient age. Will adjust dose down slightly. Give vancomycin 500 mg Q12H. Pharmacokinetic modeling estimates trough of 12. However, anticipate a higher trough once patient has reached steady state due to age (reduced CrCl). Trough has been ordered for 02/26 @0900. Pharmacy to monitor and dose vancomcyin. Thank you Jarod Ochao Feb 24, 2017 22:15
[2017-02-24] MEDS: Azithromycin Inj 500 MG in Dextrose 5% w/Vial Mate 250 ML IV SCH (23:48)
[2017-02-25] VITALS (11 sets, daily range): BP systolic 94–130; BP diastolic 62–72; PULSE 53–132; RESP 16–22; O2SAT 92–98
--- NOTE | 2017-02-25 00:07 | PCM.PNMED ---
Subjective Date of Service Feb 24, 2017 Subjective The patient is more awake and alert today. However, she complains of increased cough and congestion. She has no other new complaints. Exam Vital Signs Vital Sign - Last Date Time Temp Pulse Resp B/P Pulse Ox O2 Delivery O2 Flow Rate FiO2 02/24/17 23:53 36.6 106 18 100/61 96 Nasal Cannula 1.00 Intake and Output 02/23/17 02/23/17 02/24/17 Cumulative From/Thru 15:00 23:00 07:00 02/23/17 00:37 - 02/24/17 06:00 Intake Total 300 ml 300 ml 944 ml Output Total 1350 ml 550 ml 1900 ml Balance -1050 ml -250 ml -956 ml Intake Oral 300 ml 300 ml 600 ml IV Total 0 ml 344 ml Output Urine Total 1350 ml 550 ml 1900 ml # Bowel Movements 0 0 0 Exam General: The patient is in no respiratory distress but is uncomfortable due to cough and is requesting medicine for this. HEENT: Head is atraumatic and normocephalic. Eyes: Pupils are equally round and reactive to light and accommodation. Extraocular muscles are intact. Sclera are white, anicteric. Subconjunctival mucosa is pink. Ears and nose are unremarkable. Oropharynx: There is no mucosal lesions, there is no thrush, there is no pharyngitis. Neck: Is supple, there are no nodes, or masses or tenderness. Chest: Is significant for decreased breath sounds bilaterally. The breath sounds are coarse bilaterally. There are no overt rales, rhonchi or rubs. Heart: Rate, rhythm is regular. There is no murmur, rub or gallop. Abdomen: Good bowel sounds are present. Abdomen is soft, nontender, no organomegaly or masses were appreciated. Extremities: Are symmetrical and well perfused. There is no edema, there is no cellulitis, no rash. Neurologic: There are no focal neurological deficits. Cranial nerves II through XII are intact. There are no sensory or motor deficits. Psychiatric: Patients mood is calm and she shows no sign of agitation. Genital: Deferred Rectal: Deferred Lab and Diagnostics Result Diagram: 02/24/17 0615 02/24/17 0615 Microbiology Name: JACQUELINE RODRIGUEZ Age/Sex: 86/F Attend Dr: Ernesto Leslie Acct: [id number] Unit: [id number] Status: ADM IN [place] [facility] [place]21-1 Re02/23/17 Disch: Specimen: [id number] Collected: 02/23/17 Status: RES Req#: [id number] Received: 02/23/17 Source: BLOOD Sp Desc : AER Subm Dr: Ernesto Chong MD Ordered: MATTY Comments: Collected by Nurse/Unit? Y/N Y Procedure Result Verified Site Microbiology JANE CULTURE BLOOD Preliminary 02/24/17-945 Organism 1 POSITIVE BLOOD CULTURE GRAM STAIN RESULT GRAM POSITIVE COCCI BC BOTTLE Isolated from Aerobic Bottle of Set Drawn DATE CALLED: 02/24/17 TIME CALLED: 46 CALLED BY: VINCETN FLOOR/DOCTOR: FRANCO/SAMEER Bills BC READ BACK Y TYPE OF DRAW PERIPHERAL DRAW TIME OF POSITIVITY 0935 X-Rays, CTs and MRIs Wet read by ED physician noted possible right middle lobe pneumonia. Assessment & Plan Jacqueline Rodriguez is an 86-year-old woman with past medical history significant for Atrial fibrillation on Coumadin, Diastolic heart failure, Hypertension, chronic anemia, peptic ulcer disease, seizure disorder who presented to [facility] emergency department today via EMS due to chest pain that began several hours prior to arrival. Atypical chest pain, present on admission, active -Differential includes costochondritis from coughing from COPD exacerbation versus pneumonia, CHF exacerbation, hiatal hernia -Possible right middle lobe infiltrate unlikely represent pneumonia given patient's normal white count, normal temperature, normal procalcitonin -Plan as below -Check CT scan of the chest to look for coccidioidomycosis causing pleurisy. Acute on Chronic Hypoxic Respiratory Failure due to COPD exacerbation. Present on admission, has been ruled out - We will continue oxygen supplementation with target 88-92% - We will continue DuoNeb as scheduled, albuterol when necessary - Patient started azithromycin for presumed aspiration pneumonia will continue. We will also add vancomycin due to positive blood cultures and Rocephin.. - We will continue Prednisone 40 mg 5 days - Respiratory viral PCR is negative - Consider palliative care consultation given the patient's multiple readmissions - Check serum cocci titer to rule out valley fever as patient has a calcified granuloma in her lung. Bacteremia, present at the time of admission. Active awaiting blood culture final results. - Check blood culture final results. - And vancomycin and Rocephin IV pending culture results- - We will continue azithromycin IV Diastolic heart failure, present on admission, active -Patient had recent echocardiogram which demonstrated mild improvement from previous. -BNP appears within the usual range for the patient -Continue outpatient medications Atrial fibrillation, Present on admission, active - Chronic issues and not currently on anticoagulations due to bleeding risk - monitor on telemetry - continuing Metoprolol 75 mg bid - continuing Plavix 75 mg daily Seizures, chronic - Continue Depakote 500 mg bid Depression chronic - continue Prozac 40 mg daily Dyslipidemia - continue Atorvastatin 40 mg HS - Acetaminophen as needed for mild pain/fever/headache - Bowel regimen as needed - Antiemetic as needed CODE STATUS: DNR/DNI Disposition: Patient will likely be here another 24-48 hours for the evaluation and treatment of the above medical problems. Pain Evaluation: Adequate Pain Control VTE Prophylaxis: Sub-Q Heparin (Unfractionated) VTE Mechanical Devices: Venous Foot Pump Resuscitation Status: DNR/DNI:Do Not Resuscitate/Intubate Ernesto Leslie MD Feb 25, 2017 00:07
[2017-02-25] MEDS: fentaNYL-PF 50 mCg/mL 2 mL Inj IV PRN ×4 (04:04→19:23)
--- NOTE | 2017-02-25 04:24 | NUR ---
Pain Management Provided patient education on maintaining proper pain control with PO medication if possible. Discussed more regular intervals of Roxicodone vs IV use of Fentanyl before pain reaches 8/10. Patient agrees and will attempt to notify staff before pain escalates.
[2017-02-25 07:31] LABS: BASOPHILS % (AUTO) 0.1 % (0-3); EOSINOPHILS % (AUTO) 0.4 % (0-5); MONOCYTES % (AUTO) 4.3 % (4-12); Mean Corpuscular Hemoglobin 28.3 pg (27.0-35.0); Mean Corpuscular Volume 91.6 fL (81-100); NEUTROPHILS % (AUTO) 79.1 % (40-74); Platelet Count 360 bil/L (150-400)
[2017-02-25] MEDS: Ipratropium 0.02% 0.5 mg/2.5 mL Inhalation Solution NEB SCH ×4 (07:35→19:49)
[2017-02-25 07:47] LABS: Magnesium 2.1 mg/dL (1.6-2.6)
[2017-02-25] MEDS: Vancomycin Dose per Pharmacist XX SCH (08:30)
[2017-02-25] MEDS: predniSONE 20 mg Tablet PO SCH (09:09)
[2017-02-25] MEDS: Heparin 5,000 Unit/mL Inj SUBQ SCH ×2 (09:11→16:41)
[2017-02-25] MEDS: Vancomycin Inj 500 MG in Dextrose 5% 100 ML IV SCH ×2 (09:18→21:52)
--- NOTE | 2017-02-25 11:05 | NUR ---
Social Work- continued d/c planning/ multidisciplinary rounds: Data:EMR Reviewed. Pt is on day 2 of hospitalization for Pneumonia per H&P. Pt is not medically stable anticipate 2-3 more days. Pt remains on IV abx and her respiratory status is worsening. Pt resides at home with private pay caregivers 5 days a week. Pt also open with [facility]. Pt may benefit from PT evaluation prior to discharge. SW will continue to follow. Assessment:Pt who has caregivers and HH at home. Plan:Anticipate pt to return home when medically stable via POV. Pt to continue with caregivers and will need resume [facility] services at discharge. Pt may benefit from PT evaluation prior to discharge. SW will continue to follow. ALDO Blanton
--- NOTE | 2017-02-25 15:12 | DRSVH ---
PROCEDURE: CT CHEST WITHOUT CONTRAST ([id number]) INDICATIONS: Chest pain and cough/possible coccidiomycosis TECHNIQUE: Noncontrast 5 mm thick sections acquired from the pulmonary apices to the posterior costophrenic angl es. 7 mm thick coronal and sagittal MIP reformats were then acquired. For radiation dose reduction, the following was used: automated exposure control, adjustment of mA and/or kV according to patient size. COMPARISON: Merged With [facility], CT, CT CHEST WO CON, 11/26/2015, 14:49. FINDINGS: Image quality: Excellent. Lungs and pleura: No acute air space opacities, and compressive atelectasis has resolved with resolu tion of the bilateral previously present pleural effusions. Several scattered small calcified granul omas within the lungs bilaterally are again seen, and no pulmonary nodule is present that would indic ate likelihood of underlying neoplasm. By radiographic appearance coccidioidomycosis would not be garg spected. No pleural effusion is currently present, nor is there pneumothorax. Central and periphera l airways are patent and normal in caliber. There is asymmetry of the volume of the hemithoraces, la rger on the left than the right as was previously the case. Some degree of chronic restrictive lung disease is present on the left. Mild fibrotic change at the left lower lobe is noted along the pleur al surfaces. Mediastinum: Heart size is normal. No pericardial effusion. No mediastinal adenopathy by size crit eria. Thoracic aorta and central pulmonary arteries are normal in size. Esophagus is normal in cayden trevor. No hiatal hernia. Bones and chest wall: No suspicious bony lesions. No vertebral body compression fractures. No axil farhana or supraclavicular adenopathy by size criteria. Thyroid gland appears normal where well visuali zed. Abdomen: Visualized upper abdominal solid organs and bowel loops appear normal in the absence of con trast. IMPRESSION: Resolution of bilateral pleural effusions and secondary atelectasis. Stable fibrotic chai nge at the pleural surfaces of the left lung base. Mild restrictive lung disease on the left, previo usly present, producing asymmetric lower volume within the left hemithorax when compared to that on t he right. Incidental note is made of a moderate-sized hiatal hernia a high in the heart, previously present. Old calcified granulomas, small in size, are again seen within the lung parenchyma bilaterally. No c alcified mediastinal or hilar lymph nodes are found. Dictated by: Isidro Hill M.D. on 02/25/2017 at 15:05 Approved by: Isidro Hill M.D. on 02/25/2017 at 15:10
[2017-02-25] MEDS: cefTRIAXone Inj 2,000 MG in Dextrose 5% Minibag Plus 50 ML IV SCH (17:15)
[2017-02-25] MEDS: guaiFENesin DM 200-20 mg/10 mL Syrup PO PRN (17:32)
[2017-02-25] MEDS ORDERED: MeTOProlol 1 mg/mL 5 mL Inj IV SCH ×2 (18:10→18:50)
[2017-02-25] MEDS: Azithromycin Inj 500 MG in Dextrose 5% w/Vial Mate 250 ML IV SCH (18:16)
--- NOTE | 2017-02-25 18:26 | NUR ---
A-fib Pt afib 120-130's since approx 1700, pt has increased HR with frequent coughing fits. PRN cough medicine resolved coughing but HR stayed persistently high. notified and PRN IV metoprolol ordered and given. HR dropped initially to 100, and now in 100-teens. notified, continuing to monitor. Addendum: 02/25/17 at 1849 by LUDWIG SHEPHERD RN HR persisting in 100 teens, notified, IV metoprolol ordered again, NOC nurse to give once pharmacy verifies. Continuing to monitor.
[2017-02-25] MEDS: Polyethylene Glycol (PEG) 17 Gm Powder PO PRN (20:43)
[2017-02-25] MEDS ORDERED: Vancomycin Inj 500 MG in Dextrose 5% 100 ML IV ONE (23:15)
[2017-02-26] VITALS (13 sets, daily range): BP systolic 101–128; BP diastolic 65–81; PULSE 83–106; RESP 16–20; O2SAT 91–98
--- NOTE | 2017-02-26 00:24 | PCM.PNMED ---
Subjective Date of Service Feb 26, 2017 Subjective The patient continues to complain of cough and fatigue. She has no other new specific complaints. Exam Vital Signs Vital Sign - Last Date Time Temp Pulse Resp B/P Pulse Ox O2 Delivery O2 Flow Rate FiO2 02/25/17 19:49 80 16 94 Nasal Cannula 2.00 02/25/17 19:31 36.8 95/64 Intake and Output 02/25/17 02/25/17 02/26/17 Cumulative From/Thru 15:00 23:00 07:00 02/23/17 00:37 - 02/25/17 17:55 Intake Total 745 ml 3297 ml Output Total 600 ml 4050 ml Balance 145 ml -753 ml Intake Oral 575 ml 2033 ml IV Total 170 ml 1264 ml Output Urine Total 600 ml 4050 ml # Voids 1 # Bowel Movements 0 0 Exam General: Patient is lying in bed with head elevated approximately 10-20. She is periodically coughing. She is in no other distress. Lab and Diagnostics Result Diagram: 02/25/1762002/25/1721 Microbiology Name: JACQUELINE RODRIGUEZ Age/Sex: 86/F Attend Dr: Ernesto Leslie Acct: [id number] Unit: [id number] Status: ADM IN Location: [facility] [place] 3021-1 Re02/23/17 Disch: Specimen: [id number] Collected: 02/23/17 Status: RES Amy#: [id number] Received: 02/23/176 Source: BLOOD Sp Desc : AER Subm Dr: Ernesto Chong MD Ordered: BC Comments: Collected by Nurse/Unit? Y/N Y Procedure Result Verified Site Microbiology JANE CULTURE BLOOD Preliminary 02/24/17-945 Organism 1 POSITIVE BLOOD CULTURE GRAM STAIN RESULT GRAM POSITIVE COCCI BC BOTTLE Isolated from Aerobic Bottle of Set Drawn DATE CALLED: 02/24/17 TIME CALLED: 945 CALLED BY: VINCENT FLOOR/DOCTOR: FRANCO/SAMEER Bills BC READ BACK Y TYPE OF DRAW PERIPHERAL DRAW TIME OF POSITIVITY 0935 X-Rays, CTs and MRIs Wet read by ED physician noted possible right middle lobe pneumonia. PROCEDURE: CT CHEST WITHOUT CONTRAST ([id number]) INDICATIONS: Chest pain and cough/possible coccidiomycosis TECHNIQUE: Noncontrast 5 mm thick sections acquired from the pulmonary apices to the posterior costophrenic angles. 7 mm thick coronal and sagittal MIP reformats were then acquired. For radiation dose reduction, the following was used: automated exposure control, adjustment of mA and/or kV according to patient size. COMPARISON: [facility], CT, CT CHEST WO CON, 11/26/2015, 14:49. FINDINGS: Image quality: Excellent. Lungs and pleura: No acute air space opacities, and compressive atelectasis has resolved with resolution of the bilateral previously present pleural effusions. Several scattered small calcified granulomas within the lungs bilaterally are again seen, and no pulmonary nodule is present that would indicate likelihood of underlying neoplasm. By radiographic appearance coccidioidomycosis would not be suspected. No pleural effusion is currently present, nor is there pneumothorax. Central and peripheral airways are patent and normal in caliber. There is asymmetry of the volume of the hemithoraces, larger on the left than the right as was previously the case. Some degree of chronic restrictive lung disease is present on the left. Mild fibrotic change at the left lower lobe is noted along the pleural surfaces. Mediastinum: Heart size is normal. No pericardial effusion. No mediastinal adenopathy by size criteria. Thoracic aorta and central pulmonary arteries are normal in size. Esophagus is normal in caliber. No hiatal hernia. Bones and chest wall: No suspicious bony lesions. No vertebral body compression fractures. No axillary or supraclavicular adenopathy by size criteria. Thyroid gland appears normal where well visualized. Abdomen: Visualized upper abdominal solid organs and bowel loops appear normal in the absence of contrast. IMPRESSION: Resolution of bilateral pleural effusions and secondary atelectasis. Stable fibrotic change at the pleural surfaces of the left lung base. Mild restrictive lung disease on the left, previously present, producing asymmetric lower volume within the left hemithorax when compared to that on the right. Incidental note is made of a moderate-sized hiatal hernia a high in the heart, previously present. Old calcified granulomas, small in size, are again seen within the lung parenchyma bilaterally. No calcified mediastinal or hilar lymph nodes are found. Dictated by: Isidro Hill M.D. on 02/25/2017 at 15:05 Approved by: Isidro Hill M.D. on 02/25/2017 at 15:10 Cardiac Echo Impressions Echocardiogram Report Name: JACQUELINE RODRIGUEZ Date: 12/04/2016 Height: 62 in Hospital Exam Location: [facility] Weight: 135 lb Gender: Female BSA: 1.6 m2 : 1930 Age: 86 yrs BP: 111/71 mmHg Reason For Study: ELEVATED BNP Ordering Physician: HOSPITALROSAMARIA BRUNOerformed By: Jim Youngblood Referring Physician: JAY US Interpretation Summary There is a prominent hiatal hernia behind the left atrium. There is mild- moderate concentric left ventricular hypertrophy. Left ventricular systolic function is normal without focal wall motion abnormalities. The ejection fraction is estimated to be 55-60%. LVEF has remained stable. The right ventricle grossly appears normal in size with probable normal systolic function. The right ventricular systolic pressure is estimated at 24 mmHg assuming a right atrial pressure of 3 mm Hg. Compared to the prior echo exam, there has been a decrease in the severity of pulmonary hypertension. The left atrium is severely dilated. The right atrium is mildly dilated. There is mild mitral regurgitation. MR has decreased since prior study. There is no other significant valvular heart disease. The aortic root is normal size. Assessment & Plan Jacqueline Rodriguez is an 86-year-old woman with past medical history significant for Atrial fibrillation on Coumadin, Diastolic heart failure, Hypertension, chronic anemia, peptic ulcer disease, seizure disorder who presented to [facility] emergency department today via EMS due to chest pain that began several hours prior to arrival. Atypical chest pain, present on admission, active -Differential includes costochondritis from coughing from COPD exacerbation versus pneumonia, CHF exacerbation, hiatal hernia -Possible right middle lobe infiltrate. However, this is unlikely represent pneumonia given patient's normal white count, normal temperature, normal procalcitonin -Plan as below -A CT scan of the chest was ordered for today to look for coccidioidomycosis causing pleurisy, shortness of breath and cough. Acute on Chronic Hypoxic Respiratory Failure due to COPD exacerbation. Present on admission, has been ruled out - We will continue oxygen supplementation with target 88-92% - We will continue DuoNeb as scheduled, albuterol when necessary - Patient started azithromycin for presumed aspiration pneumonia will continue. We will also add vancomycin due to positive blood cultures and Rocephin.. - We will continue Prednisone 40 mg 5 days - Respiratory viral PCR is negative - Consider palliative care consultation given the patient's multiple readmissions - Check serum cocci titer to rule out valley fever as patient has bilateral calcified granulomas in her lung and live near an endemic area for valley fever. Bacteremia, present at the time of admission. Active awaiting blood culture final results which are still pending. - Check blood culture final results. - Continue vancomycin and Rocephin IV pending culture results- - We will continue azithromycin IV for now. Diastolic heart failure, present on admission, active -Patient had recent echocardiogram which demonstrated mild improvement from previous. -BNP appears within the usual range for the patient -Continue outpatient medications Atrial fibrillation, Present on admission, active - Chronic issues and not currently on anticoagulations due to bleeding risk - monitor on telemetry - continuing Metoprolol 75 mg bid - continuing Plavix 75 mg daily Seizures, chronic - Continue Depakote 500 mg bid Depression chronic - continue Prozac 40 mg daily Dyslipidemia - continue Atorvastatin 40 mg HS - Acetaminophen as needed for mild pain/fever/headache - Bowel regimen as needed - Antiemetic as needed CODE STATUS: DNR/DNI Disposition: Patient will likely be here another 24-48 hours for the evaluation and treatment of the above medical problems. Pain Evaluation: Adequate Pain Control VTE Prophylaxis: Sub-Q Heparin (Unfractionated) VTE Mechanical Devices: Intermittant Pneumatic CD Resuscitation Status: DNR/DNI:Do Not Resuscitate/Intubate Ernesto Leslie MD Feb 26, 2017 00:24 Ernesto Leslie MD Feb 26, 2017 00:24
[2017-02-26] MEDS: Heparin 5,000 Unit/mL Inj SUBQ SCH ×3 (00:30→16:00)
[2017-02-26] MEDS: fentaNYL-PF 50 mCg/mL 2 mL Inj IV PRN ×4 (01:16→17:34)
[2017-02-26] MEDS: guaiFENesin DM 200-20 mg/10 mL Syrup PO PRN (01:16)
[2017-02-26 06:45] LABS: BASOPHILS % (AUTO) 0.2 % (0-3); EOSINOPHILS % (AUTO) 0.9 % (0-5); MONOCYTES % (AUTO) 6.4 % (4-12); Mean Corpuscular Hemoglobin 27.9 pg (27.0-35.0); NEUTROPHILS % (AUTO) 71.6 % (40-74); Platelet Count 323 bil/L (150-400)
[2017-02-26 07:22] LABS: Magnesium 2.2 mg/dL (1.6-2.6)
[2017-02-26] MEDS: Ipratropium 0.02% 0.5 mg/2.5 mL Inhalation Solution NEB SCH ×4 (08:10→21:04)
[2017-02-26] MEDS ORDERED: Vancomycin Inj 500 MG in Dextrose 5% 100 ML IV SCH (08:30)
[2017-02-26] MEDS: predniSONE 20 mg Tablet PO SCH (08:32)
[2017-02-26] MEDS: Polyethylene Glycol (PEG) 17 Gm Powder PO PRN (08:33)
[2017-02-26] MEDS ORDERED: 0.9% Sodium Chloride 250 ML ONE (09:06)
[2017-02-26] MEDS: Vancomycin Dose per Pharmacist XX SCH (09:08)
--- NOTE | 2017-02-26 10:14 | NUR ---
Social Work: Multidisciplinary Rounds Pt discussed in rounds. states pt ready for d/c in 1 day likely. anticipates POABX at d/c. Pt likely to go home with ALDO Arce following for d/c needs. ALDO Alejandro
--- NOTE | 2017-02-26 15:01 | NUR ---
Activity: Patient ambulated two and one-half times around hallway SBA w/FWW. O2 on 3L for ambulation, patient stating she stopped three times to rest, denied dizziness or lightheadedness. Patient up to chair most of day. Reminded to call for assistance to bathroom or help back to bed. Patient agreed. Call light within reach, non-skid socks on for safety.
[2017-02-26] MEDS: cefTRIAXone Inj 2,000 MG in Dextrose 5% Minibag Plus 50 ML IV SCH (18:04)
[2017-02-26] MEDS: Azithromycin Inj 500 MG in Dextrose 5% w/Vial Mate 250 ML IV SCH (18:42)
[2017-02-26] MEDS ORDERED: Vancomycin Serum Trough XX ONE (19:30)
--- NOTE | 2017-02-26 21:35 | PCM.PHAPRO ---
Progress Date of Service: Feb 26, 2017 Chest pain VANCOMYCIN MANAGEMENT A\ 86YO F WITH PNA VANCOMYCIN TROUGH=12.7 GOAL =15-20 SCR=0.57 CRCL=75 AFEBRILE P\ WILL INCREASE VANCOMYCIN 750MG IV Q12H FIRST DOSE 02/26 2200 AND A TROUGH AT 0930 02/28. WILL ALSO MONITOR SCR DAILY TIME 3 DAYS Cooper Johnson [facility] Feb 26, 2017 21:35
[2017-02-26] MEDS ORDERED: Vancomycin Inj 750 MG in 0.9% Sodium Chloride 250 ML IV SCH (22:00)
--- NOTE | 2017-02-26 22:53 | PCM.PNMED ---
Subjective Date of Service Feb 26, 2017 Subjective The patient felt a little bit better today. She has no other new complaints. He states she is still too weak to go home. Exam Vital Signs Vital Sign - Last Date Time Temp Pulse Resp B/P Pulse Ox O2 Delivery O2 Flow Rate FiO2 02/26/17 21:05 96 18 94 Nasal Cannula 2.00 02/26/17 20:21 36.3 107/72 Intake and Output 02/25/17 02/25/17 02/26/17 Cumulative From/Thru 15:00 23:00 07:00 02/23/17 00:37 - 02/26/17 00:30 Intake Total 745 ml 3297 ml Output Total 600 ml 4050 ml Balance 145 ml -753 ml Intake Oral 575 ml 2033 ml IV Total 170 ml 1264 ml Output Urine Total 600 ml 4050 ml # Voids 1 # Bowel Movements 0 0 Exam General: The patient is in a bedside chair and appears in less distress. She appears more comfortable. HEENT: Head is atraumatic and normocephalic. Eyes: Pupils are equally round and reactive to light and accommodation. Extraocular muscles are intact. Sclera are white, anicteric. Subconjunctival mucosa is pink. Ears and nose are unremarkable. Oropharynx: There is no mucosal lesions, there is no thrush, there is no pharyngitis. Neck: Is supple, there are no nodes, or masses or tenderness. Chest: Is significant for decreased breath sounds bilaterally. The breath sounds are coarse bilaterally. There are no overt rales, rhonchi or rubs. Heart: Rate, rhythm is regular. There is no murmur, rub or gallop. Abdomen: Good bowel sounds are present. Abdomen is soft, nontender, no organomegaly or masses were appreciated. Extremities: Are symmetrical and well perfused. There is no edema, there is no cellulitis, no rash. Neurologic: There are no focal neurological deficits. Cranial nerves II through XII are intact. There are no sensory or motor deficits. Psychiatric: Patients mood is calm and she shows no sign of agitation. Genital: Deferred Rectal: Deferred Lab and Diagnostics Result Diagram: 02/26/17 0601 02/26/17 0601 Microbiology Name: JACQUELINE RODRIGUEZ Age/Sex: 86/F Attend Dr: Ernesto Leslie Acct: [id number] Unit: [id number] Status: ADM IN Location: [facility] [place] 3021-1 Re02/23/17 Disch: Specimen: [id number] Collected: 02/23/17 Status: RES Req#: [id number] Received: 02/23/17 Source: BLOOD Sp Desc : AER Subm Dr: Ernesto Chong MD Ordered: MATTY Comments: Collected by Nurse/Unit? Y/N Y Procedure Result Verified Site Microbiology JANE CULTURE BLOOD Preliminary 02/24/17 Organism 1 POSITIVE BLOOD CULTURE GRAM STAIN RESULT GRAM POSITIVE COCCI BC BOTTLE Isolated from Aerobic Bottle of Set Drawn DATE CALLED: 02/24/17 TIME CALLED: 945 CALLED BY: VINCENT FLOOR/DOCTOR: FRANCO/SAMEER Bills BC READ BACK Y TYPE OF DRAW PERIPHERAL DRAW TIME OF POSITIVITY 0935 X-Rays, CTs and MRIs Wet read by ED physician noted possible right middle lobe pneumonia. PROCEDURE: CT CHEST WITHOUT CONTRAST ([id number]) INDICATIONS: Chest pain and cough/possible coccidiomycosis TECHNIQUE: Noncontrast 5 mm thick sections acquired from the pulmonary apices to the posterior costophrenic angles. 7 mm thick coronal and sagittal MIP reformats were then acquired. For radiation dose reduction, the following was used: automated exposure control, adjustment of mA and/or kV according to patient size. COMPARISON: [facility], CT, CT CHEST WO CON, 11/26/2015, 14:49. FINDINGS: Image quality: Excellent. Lungs and pleura: No acute air space opacities, and compressive atelectasis has resolved with resolution of the bilateral previously present pleural effusions. Several scattered small calcified granulomas within the lungs bilaterally are again seen, and no pulmonary nodule is present that would indicate likelihood of underlying neoplasm. By radiographic appearance coccidioidomycosis would not be suspected. No pleural effusion is currently present, nor is there pneumothorax. Central and peripheral airways are patent and normal in caliber. There is asymmetry of the volume of the hemithoraces, larger on the left than the right as was previously the case. Some degree of chronic restrictive lung disease is present on the left. Mild fibrotic change at the left lower lobe is noted along the pleural surfaces. Mediastinum: Heart size is normal. No pericardial effusion. No mediastinal adenopathy by size criteria. Thoracic aorta and central pulmonary arteries are normal in size. Esophagus is normal in caliber. No hiatal hernia. Bones and chest wall: No suspicious bony lesions. No vertebral body compression fractures. No axillary or supraclavicular adenopathy by size criteria. Thyroid gland appears normal where well visualized. Abdomen: Visualized upper abdominal solid organs and bowel loops appear normal in the absence of contrast. IMPRESSION: Resolution of bilateral pleural effusions and secondary atelectasis. Stable fibrotic change at the pleural surfaces of the left lung base. Mild restrictive lung disease on the left, previously present, producing asymmetric lower volume within the left hemithorax when compared to that on the right. Incidental note is made of a moderate-sized hiatal hernia a high in the heart, previously present. Old calcified granulomas, small in size, are again seen within the lung parenchyma bilaterally. No calcified mediastinal or hilar lymph nodes are found. Dictated by: Isidro Hill M.D. on 02/25/2017 at 15:05 Approved by: Isidro Hill M.D. on 02/25/2017 at 15:10 Cardiac Echo Impressions Echocardiogram Report Name: JACQUELINE RODRIGUEZ Date: 12/04/2016 Height: 62 in Hospital Exam Location: [facility] Weight: 135 lb Gender: Female BSA: 1.6 m2 : 1930 Age: 86 yrs BP: 111/71 mmHg Reason For Study: ELEVATED BNP Ordering Physician: HOSPITALIST ERVINerformed By: Jim Youngblood Referring Physician: JAY US Interpretation Summary There is a prominent hiatal hernia behind the left atrium. There is mild- moderate concentric left ventricular hypertrophy. Left ventricular systolic function is normal without focal wall motion abnormalities. The ejection fraction is estimated to be 55-60%. LVEF has remained stable. The right ventricle grossly appears normal in size with probable normal systolic function. The right ventricular systolic pressure is estimated at 24 mmHg assuming a right atrial pressure of 3 mm Hg. Compared to the prior echo exam, there has been a decrease in the severity of pulmonary hypertension. The left atrium is severely dilated. The right atrium is mildly dilated. There is mild mitral regurgitation. MR has decreased since prior study. There is no other significant valvular heart disease. The aortic root is normal size. Assessment & Plan Jacqueline Rodriguez is an 86-year-old woman with past medical history significant for Atrial fibrillation on Coumadin, Diastolic heart failure, Hypertension, chronic anemia, peptic ulcer disease, seizure disorder who presented to [facility] emergency department today via EMS due to chest pain that began several hours prior to arrival. Patient was admitted to the hospitalist service for further evaluation and treatment. Atypical chest pain, present on admission, active -Differential includes costochondritis from coughing from COPD exacerbation versus pneumonia, CHF exacerbation, hiatal hernia -Possible right middle lobe infiltrate. However, this is unlikely represent pneumonia given patient's normal white count, normal temperature, normal procalcitonin -Plan as below -A CT scan of the chest was ordered for today to look for coccidioidomycosis causing pleurisy, shortness of breath and cough. Acute on Chronic Hypoxic Respiratory Failure due to COPD exacerbation. Present on admission, has been ruled out - We will continue oxygen supplementation with target 88-92% - We will continue DuoNeb as scheduled, albuterol when necessary - Patient started azithromycin for presumed aspiration pneumonia will continue. We also added vancomycin due to positive blood cultures and Rocephin for pneumonia. - We will continue Prednisone 40 mg 5 days - Respiratory viral PCR is negative - Consider palliative care consultation given the patient's multiple readmissions - Check serum cocci titer to rule out valley fever as patient has bilateral calcified granulomas in her lung and live near an endemic area for valley fever. Bacteremia, present at the time of admission. Active awaiting blood culture final results which are still pending. - Check blood culture final results. - Continue vancomycin and Rocephin IV pending culture results - We will continue azithromycin IV for now. Diastolic heart failure, present on admission, active -Patient had recent echocardiogram which demonstrated mild improvement from previous study. -BNP appears within the usual range for the patient -Continue outpatient medications Atrial fibrillation, Present on admission, active - Chronic issues and not currently on anticoagulations due to bleeding risk - We will continue to monitor on telemetry - We will continue Metoprolol 75 mg bid - We will continue Plavix 75 mg daily Seizures, chronic - Continue Depakote 500 mg bid Depression chronic - We will continue Prozac 40 mg daily Dyslipidemia - We will continue Atorvastatin 40 mg HS - Acetaminophen as needed for mild pain/fever/headache - Bowel regimen as needed - Antiemetic as needed CODE STATUS: DNR/DNI Disposition: Patient will likely be here another 24-48 hours for the evaluation and treatment of the above medical problems. Pain Evaluation: Adequate Pain Control VTE Prophylaxis: Sub-Q Heparin (Unfractionated) VTE Mechanical Devices: Intermittant Pneumatic CD Resuscitation Status: DNR/DNI:Do Not Resuscitate/Intubate Ernesto Leslie MD Feb 26, 2017 22:53
[2017-02-27 00:36] VITALS: BP 123/70; PULSE 94; RESP 16; O2SAT 94
[2017-02-27] MEDS: Heparin 5,000 Unit/mL Inj SUBQ SCH ×2 (01:35→08:39)
[2017-02-27 04:54] VITALS: BP 108/68; PULSE 89; RESP 16; O2SAT 92
--- NOTE | 2017-02-27 05:56 | NUR ---
Pain/IV: Pt c/o chest/pleuritic pain, increased with coughing x2; PO pain medication administered; effective. Pt denied SOB, n/v. IV mild infiltrating, no pain, L forearm; RN tried to restart, pt stated she was an IV therapy start; IV therapy called for restart this am. Pt slept off/on throughout the night, pleasant and cooperative with care.
[2017-02-27 06:39] LABS: BASOPHILS % (AUTO) 0.3 % (0-3); EOSINOPHILS % (AUTO) 1.8 % (0-5); MONOCYTES % (AUTO) 8.5 % (4-12); Mean Corpuscular Hemoglobin 28.2 pg (27.0-35.0); Mean Corpuscular Volume 92.3 fL (81-100); NEUTROPHILS % (AUTO) 60.4 % (40-74); Platelet Count 341 bil/L (150-400)
[2017-02-27 07:00] LABS: Magnesium 2.2 mg/dL (1.6-2.6)
[2017-02-27 07:15] VITALS: PULSE 79; RESP 18; O2SAT 97
[2017-02-27] MEDS: Ipratropium 0.02% 0.5 mg/2.5 mL Inhalation Solution NEB SCH ×2 (07:15→11:59)
[2017-02-27] MEDS ORDERED: Pantoprazole 40 mg ER24 Tablet PO SCH (07:30)
[2017-02-27 08:00] VITALS: PULSE 89
[2017-02-27] MEDS: predniSONE 20 mg Tablet PO SCH (08:39)
[2017-02-27 09:34] VITALS: BP 99/59; PULSE 85; RESP 18; O2SAT 95
--- NOTE | 2017-02-27 11:56 | NUR ---
Social Work: Discharge Data: Pt is on day 4 of hospitalization. EMR reviewed, pt discussed in multidisciplinary rounds. states pt likely to d/c today. D/C orders are being placed. WIRE WELDER notified [facility] of resumption of care for RN/PT/OT/ST/RELAY TESTER HELPER. Pt will also continue with [employer] for home O2 and her caregiving that she has at home. states pt will d/c with POABX. No further d/c planning needs at this time. WIRE WELDER will continue to follow if needs arise. Assessment: Pt with caregiving at baseline, currently at baseline. Plan: Pt will d/c home via POV with caregiver today with resume [facility] for RN/PT/OT/ST/RELAY TESTER HELPER and O2 through [employer]. No further d/c planning needs at this time. WIRE WELDER will continue to follow if needs arise. ALDO Alejandro
--- NOTE | 2017-02-27 11:58 | PCM.DIMED ---
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 Fierro today at 1315hrs) Mid-level Provider (F9): Nicole Villagomez MD Follow-up with Mid-level in: 4 weeks (Follow up for bilateral pulmonary granuloma and COPD) Ernesto Leslie MD Feb 27, 2017 11:58
[2017-02-27 11:59] VITALS: PULSE 77; RESP 18; O2SAT 95
[2017-02-27] MEDS ORDERED: ZIT250 PO (12:09)
[2017-02-27] MEDS ORDERED: CEFD300C3 PO (12:09)
[2017-02-27] MEDS ORDERED: PRED-508 PO (12:09)
[2017-02-27] MEDS ORDERED: PANT40TA3 PO (12:09)
[2017-02-27] MEDS ORDERED: PRE10 PO (12:12)
--- NOTE | 2017-02-27 14:04 | NUR ---
Discharge: Patient discharged to home @ approx 1320. IV d/c'd intact, telemetry removed, land survey technician notified. Personal belongings sent home with patient. Reviewed new prescriptions, home medication list, discharge instructions and follow up appointments with patient and caregiver. Reminded to pickle maker electronically sent new prescriptions from [facility]. Educated on importance of completing full course of antibiotics and tapering of prednisone. Verbalized understanding. Escorted to main entrance via wheelchair accompanied by BELT CHANGER. No apparent distress noted at time of discharge.
--- NOTE | 2017-02-28 00:48 | PCM.DC.MED ---
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 PROCEDURE: CT CHEST WITHOUT CONTRAST ([id number]) INDICATIONS: Chest pain and cough/possible coccidiomycosis TECHNIQUE: Noncontrast 5 mm thick sections acquired from the pulmonary apices to the posterior costophrenic angles. 7 mm thick coronal and sagittal MIP reformats were then acquired. For radiation dose reduction, the following was used: automated exposure control, adjustment of mA and/or kV according to patient size. COMPARISON: [facility], CT, CT CHEST WO CON, 11/26/2015, 14:49. FINDINGS: Image quality: Excellent. Lungs and pleura: No acute air space opacities, and compressive atelectasis has resolved with resolution of the bilateral previously present pleural effusions. Several scattered small calcified granulomas within the lungs bilaterally are again seen, and no pulmonary nodule is present that would indicate likelihood of underlying neoplasm. By radiographic appearance coccidioidomycosis would not be suspected. No pleural effusion is currently present, nor is there pneumothorax. Central and peripheral airways are patent and normal in caliber. There is asymmetry of the volume of the hemithoraces, larger on the left than the right as was previously the case. Some degree of chronic restrictive lung disease is present on the left. Mild fibrotic change at the left lower lobe is noted along the pleural surfaces. Mediastinum: Heart size is normal. No pericardial effusion. No mediastinal adenopathy by size criteria. Thoracic aorta and central pulmonary arteries are normal in size. Esophagus is normal in caliber. No hiatal hernia. Bones and chest wall: No suspicious bony lesions. No vertebral body compression fractures. No axillary or supraclavicular adenopathy by size criteria. Thyroid gland appears normal where well visualized. Abdomen: Visualized upper abdominal solid organs and bowel loops appear normal in the absence of contrast. IMPRESSION: Resolution of bilateral pleural effusions and secondary atelectasis. Stable fibrotic change at the pleural surfaces of the left lung base. Mild restrictive lung disease on the left, previously present, producing asymmetric lower volume within the left hemithorax when compared to that on the right. Incidental note is made of a moderate-sized hiatal hernia a high in the heart, previously present. Old calcified granulomas, small in size, are again seen within the lung parenchyma bilaterally. No calcified mediastinal or hilar lymph nodes are found. Dictated by: Isidro Hill M.D. on 02/25/2017 at 15:05 Approved by: Isidro Hill M.D. on 02/25/2017 at 15:10 Cardiac Echo Impression Echocardiogram Report Name: JEFFERSON RODRIGUEZ OStjesse Date: 12/04/2016 Height: 62 in Hospital Exam Location: [facility] Weight: 135 lb Gender: Female BSA: 1.6 m2 : 1930 Age: 86 yrs BP: 111/71 mmHg Reason For Study: ELEVATED BNP Ordering Physician: HOSPITALIST SVHPerformed By: Jim Youngblood Referring Physician: JAY US Interpretation Summary There is a prominent hiatal hernia behind the left atrium. There is mild- moderate concentric left ventricular hypertrophy. Left ventricular systolic function is normal without focal wall motion abnormalities. The ejection fraction is estimated to be 55-60%. LVEF has remained stable. The right ventricle grossly appears normal in size with probable normal systolic function. The right ventricular systolic pressure is estimated at 24 mmHg assuming a right atrial pressure of 3 mm Hg. Compared to the prior echo exam, there has been a decrease in the severity of pulmonary hypertension. The left atrium is severely dilated. The right atrium is mildly dilated. There is mild mitral regurgitation. MR has decreased since prior study. There is no other significant valvular heart disease. The aortic root is normal size. Brief History Jefferson Rodriguez is an 86-year-old woman with past medical history significant for Atrial fibrillation on Coumadin, Diastolic heart failure, COPD on 2 L oxygen at baseline, hypertension, chronic anemia, peptic ulcer disease, seizure disorder who presented to [facility] emergency department today via EMS due to chest pain that began several hours prior to arrival. Patient stated that the symptoms began while she was laying in bed. She has had similar episodes in the past that resolved spontaneously. Patient also notes a an intermittently productive cough cough that has worsened and worsened lower extremity edema as well as worsening shortness of breath. Patient notes that she was unable to put on her shoes due to her lower extremity swelling. Patient was recently admitted for acute hypoxia respiratory failure and discharged on 12/15. Patient notes that the chest pain is reproducible. Patient denies any fevers or chills. She denies any nausea/vomiting, diarrhea, abdominal pain, orthopnea, paroxysmal nocturnal dyspnea. In the emergency department her vital signs were notable for pulse of 110 and an O2 saturation of 93% on 2 L nasal cannula. Chest x-ray was notable for right middle lobe infiltrate. Patient was initiated on azithromycin and Unasyn given her history of aspiration. The patient was admitted to the hospitalist service for further evaluation and treatment. Hospital Course Jefferson Rodriguez is an 86-year-old woman with past medical history significant for Atrial fibrillation on Coumadin, Diastolic heart failure, Hypertension, chronic anemia, peptic ulcer disease, seizure disorder who presented to [facility] emergency department today via EMS due to chest pain that began several hours prior to arrival. Patient was admitted to the hospitalist service for further evaluation and treatment. Atypical chest pain, present on admission, active -Differential includes costochondritis from coughing from COPD exacerbation versus pneumonia, CHF exacerbation, hiatal hernia -Possible right middle lobe infiltrate. However, this is unlikely represent pneumonia given patient's normal white count, normal temperature, normal procalcitonin -Plan as below -A CT scan of the chest was ordered for today to look for coccidioidomycosis causing pleurisy, shortness of breath and cough. Acute on Chronic Hypoxic Respiratory Failure due to COPD exacerbation. Present on admission, has been ruled out - We will continue oxygen supplementation with target 88-92% - We will continue DuoNeb as scheduled, albuterol when necessary - Patient started azithromycin for presumed aspiration pneumonia will continue. We also added vancomycin due to positive blood cultures and Rocephin for pneumonia. As the one set of blood cultures grew 2 separate types of coagulase- negative staph these were considered contaminants and the vancomycin was discontinued. - We will continue Prednisone and taper from 40 mg 5 days to 20 mg for 5 days and then 10 mg for 5 days and then stop. - Respiratory viral PCR is negative - Consider palliative care consultation given the patient's multiple readmissions - Check serum cocci titer to rule out valley fever as patient has bilateral calcified granulomas in her lung and live near an endemic area for valley fever. Bacteremia, present at the time of admission. As the culture was positive in only one set of blood cultures and the blood culture was positive for 2 different types of coagulase-negative staph this is undoubtedly a contaminant and the vancomycin was discontinued. - Check blood culture final results. - Rocephin IV will be changed to oral Cefdinir at home 300 mg by mouth twice a day - We will azithromycin IV to by mouth at home. Diastolic heart failure, present on admission, active -Patient had recent echocardiogram which demonstrated mild improvement from previous study. -BNP appears within the usual range for the patient -Continue outpatient medications - Patient is to see her electronic device repairer Dr. Bender in her office today after discharge. Atrial fibrillation, Present on admission, active - Chronic issues and not currently on anticoagulations due to bleeding risk - We will continue to monitor on telemetry - We will continue Metoprolol 75 mg bid - We will continue Plavix 75 mg daily Seizures, chronic - Continue Depakote 500 mg bid Depression chronic - We will continue Prozac 40 mg daily Dyslipidemia - We will continue Atorvastatin 40 mg HS - Acetaminophen as needed for mild pain/fever/headache - Bowel regimen as needed - Antiemetic as needed CODE STATUS: DNR/DNI Disposition: Patient will be discharged home today. She will resume home health and has a caregiver from [facility] [email or web address] that will care for her Thursday through Thursday. Exam Vital Signs (Last) Date Time Temp Pulse Resp B/P Pulse Ox O2 Delivery O2 Flow Rate FiO2 02/27/17 11:59 77 18 95 Nasal Cannula 2.00 02/27/17 09:34 36.4 99/59 Exam General: The patient is sitting up on the side of the bed and appears in less distress. She appears more comfortable. She was just ambulating in the room with her caregiver and with her walker. HEENT: Head is atraumatic and normocephalic. Eyes: Pupils are equally round and reactive to light and accommodation. Extraocular muscles are intact. Sclera are white, anicteric. Subconjunctival mucosa is pink. Ears and nose are unremarkable. Oropharynx: There is no mucosal lesions, there is no thrush, there is no pharyngitis. Neck: Is supple, there are no nodes, or masses or tenderness. Chest: Is clear today to auscultation and percussion. There are no overt rales , rhonchi or rubs. Heart: Rate, rhythm is regular. There is no murmur, rub or gallop. Abdomen: Good bowel sounds are present. Abdomen is soft, nontender, no organomegaly or masses were appreciated. Extremities: Are symmetrical and well perfused. There is no edema, there is no cellulitis, no rash. Neurologic: There are no focal neurological deficits. Cranial nerves II through XII are intact. There are no sensory or motor deficits. Psychiatric: Patients mood is calm and she shows no sign of agitation. Genital: Deferred Rectal: Deferred Test 02/23/17 00:30 02/23/17 02:50 02/23/17 11:25 02/25/17 06:21 Prothrombin Time 10.0sec (8.1-12.5) Prothromb Time International Ratio 0.94ratio Activated Partial Thromboplast Time 22.6sec (22.8-33.0) Lactic Acid Level 2.0mmol/L (0.4-2.0) Pro-B-Type Natriuretic Peptide 2338pg/mL (0-738) Hold Saleh Top Tube Received (Received) Troponin T 0.010ug/L (0.0-0.011) Hold Urine Received (Received) Test 02/26/17 06:01 02/26/17 19:55 02/27/17 06:10 Procalcitonin 0.04ng/mL (0.00-0.08) Vancomycin Level Trough 12.7mcg/mL White Blood Count 7.8th/mm3 (3.8-10.1) Red Blood Count 3.65mil/mm3 (3.90-5.20) Hemoglobin 10.3g/dL (12.0-15.6) Hematocrit 33.7% (35.0-46.0) Mean Corpuscular Volume 92.3fL (81-100) Mean Corpuscular Hemoglobin 28.2pg (27.0-35.0) Mean Corpuscular Hemoglobin Concent 30.6% (32.0-37.0) Red Cell Distribution Width 18.1% (12.3-15.4) Platelet Count 341bil/L (150-400) Neutrophils (%) (Auto) 60.4% (40-74) Lymphocytes (%) (Auto) 28.1% (14-46) Monocytes (%) (Auto) 8.5% (4-12) Eosinophils (%) (Auto) 1.8% (0-5) Basophils (%) (Auto) 0.3% (0-3) Sodium Level 144mEq/L (134-144) Potassium Level 4.5mEq/L (3.5-5.2) Chloride Level 103mEq/L (97-108) Carbon Dioxide Level 28mmol/L (18-29) Blood Urea Nitrogen 16mg/dL (8-27) Creatinine 0.57mg/dL (0.57-1.00) Estimat Glomerular Filtration Rate 144mL/min (>59) Glucose Level 92mg/dL (60-99) Calcium Level 9.2mg/dL (8.5-10.1) Magnesium Level 2.2mg/dL (1.6-2.6) Total Bilirubin 0.2mg/dL (0.0-1.2) Aspartate Amino Transf (AST/SGOT) 13U/L (0-50) Alanine Aminotransferase (ALT/SGPT) 7U/L (0-32) Alkaline Phosphatase 65U/L (25-165) Total Protein 6.2g/dL (6.4-8.4) Albumin 3.5g/dL (3.4-5.0) Microbiology Results Name: JEFFERSON RODRIGUEZ Age/Sex: 86/F Attend Dr: Ernesto Leslie Acct: [id number] Unit: [id number] Status: ADM IN Location: [facility] [place], [place] 3021-1 Re02/23/17 Disch: Specimen: [id number] Collected: 02/23/17 Status: HERMANN Reyes#: [id number] Received: 02/23/17 Source: BLOOD Sp Desc : NORMA Daniels Dr: Ernesto Chong MD Ordered: Comments: Collected by Nurse/Unit? Y/N Y Procedure Result Verified Site Microbiology JANE CULTURE BLOOD Preliminary 02/24/17-945 Organism 1 POSITIVE BLOOD CULTURE GRAM STAIN RESULT GRAM POSITIVE COCCI BC BOTTLE Isolated from Aerobic Bottle of Set Drawn DATE CALLED: 02/24/17 TIME CALLED: 945 CALLED BY: VINCENT FLOOR/DOCTOR: FRANCO/SAMEER Bills BC READ BACK Y TYPE OF DRAW PERIPHERAL DRAW TIME OF POSITIVITY 0935 Discharge Medications Discharge Medications Acetaminophen (Tylenol Arthritis) 650 Mg Tablet.er 1,300 MG PO HS (Reported) Acetaminophen (Tylenol Arthritis) 650 Mg Tablet.er 650 MG PO MORNING (Reported) Atorvastatin (Lipitor) 40 Mg Tablet 40 MG PO HS (Reported) Azithromycin (Zithromax) 250 Mg Tablet 250 MG PO DAILY@1830 Prescribed by: SUSANA LESLIE MD Cefdinir (Cefdinir) 300 Mg Capsule 300 MG PO BID Prescribed by: SUSANA LESLIE MD Cholecalciferol (Vitamin D3) (Vitamin D3) 1,000 Unit Tab.chew 1,000 UNIT PO DAILY (Reported) Clopidogrel Bisulfate (Plavix) 75 Mg Tablet 75 MG PO DAILY Prescribed by: LOUISE PEREZ DO Divalproex DR (Depakote DR) 500 Mg Tablet 500 MG PO BID (Reported) Swallowed whole without chewing to avoid local irritation of the mouth and throat. Fluoxetine (Prozac) 40 Mg Capsule 40 MG PO DAILY (Reported) Furosemide (Furosemide) 40 Mg Tablet 20 MG PO 0830,16 Prescribed by: JAY US DO Ipratropium Troy (Ipratropium Troy Inhalant Solution) 0.2 Mg/1 Ml Solution 0.2 MG IH QID (Reported) Metoprolol Tartrate (Metoprolol Tartrate) 50 Mg Tablet 25 MG PO BID (Reported) Pantoprazole DR (Pantoprazole DR) 40 Mg Tablet.dr 40 MG PO DAILYAC Prescribed by: SUSANA LESLIE MD Potassium Chloride (Potassium Chloride) 10 Meq Capsule.er 10 MEQ PO DAILY ( Reported) TAKE WITH FOOD Prednisone (Deltasone) 20 Mg Tablet 20 MG PO DAILY Prescribed by: SUSANA LESLIE MD Prednisone (PredniSONE) 10 Mg Tablet 10 MG PO DAILY Please start after completing five days of the 20 mg dose and then stop. Prescribed by: SUSANA LESLIE MD Ranitidine (Ranitidine) 150 Mg Capsule 150 MG PO BID (Reported) As needed Mirtazapine (Remeron) 45 Mg Tablet 45 MG PO HS PRN PRN Insomnia (Reported) Polyethylene Glycol 3350 (Miralax) 17 Gm Powd.pack 17 GM PO DAILY PRN PRN For Constipation (Reported) oxyCODONE (oxyCODONE) 5 Mg Capsule 5 MG PO Q4H PRN PRN For Pain (Reported) Followup Plan Disposition: Patient is being discharged home today with home health. She is to resume previous home health. She also has [facility] healthcare services who are going to care for 5 days a week. Her [facility] healthcare care worker has been with her for 14 years. She will be taking her to her cardiology appointment today and at home. Discharge Diet: Heart Healthy Discharge Activity: No restrictions (The patient may increase ) Follow-up Provider: Karen Ross MD Follow-up with PCP in: 1 week Provider: Luz Fierro MD Follow-up in: 1 week (Patient is to see Dr. Fierro today at 1315hrs) Mid-level Provider: Nicole Villagomez MD Follow-up with Mid-level in: 4 weeks (Follow up for bilateral pulmonary granuloma and COPD) Time spent Time spent on discharging this patient was greater than 35 minutes, over half of which was involved in counseling and coordination of care. Ernesto Leslie MD Feb 28, 2017 00:48
[2017-02-28] MEDS ORDERED: Vancomycin Serum Trough XX ONE (09:30)
== END 2017-02-27 13:20 | disposition home health service (06) | DRG 191 ==
LOC: SED 00:14 → INTOOBSV 02:32 → OBSVTOIN 02:32 → MPC 02:32
PROVIDERS: ADMIT Internal Medicine; ATTEND Internal Medicine
DX: J44.1 Chronic obstructive pulmonary disease with (acute) exacerbation (principal); I50.30 Unspecified diastolic (congestive) heart failure; E78.5 Hyperlipidemia, unspecified; Z87.891 Personal history of nicotine dependence; I48.2 Chronic atrial fibrillation; Z79.01 Long term (current) use of anticoagulants; G40.909 Epilepsy, unspecified, not intractable, without status epilepticus; F32.9 Major depressive disorder, single episode, unspecified

== ENCOUNTER 2017-03-08 21:35 | Inpatient (IN) | payer MEDICARE ==
[~2017-03-08] VITALS: Ht 157.5 cm; Wt 71.8 kg
[~2017-03-08 21:35] MED LIST changes: +CEFD300C3 PO; +IPRA0.2S51 IH; -IPRA3AMP IH; -METO25TA6 PO; +METO50TA3 PO; +OXYC5CAP4 PO; +PANT40TA3 PO; +POLY17PO6 PO; +POTA10CA42 PO; +PRE10 PO; +PRED-508 PO; -SENN17.27 PO; +ZIT250 PO
[2017-03-08 21:44] VITALS: BP 125/64; PULSE 115; RESP 22; O2SAT 97
[2017-03-08 22:07] LABS: BASOPHILS % (AUTO) 0.2 % (0-3); EOSINOPHILS % (AUTO) 0.8 % (0-5); MONOCYTES % (AUTO) 5.2 % (4-12); Mean Corpuscular Hemoglobin 28.3 pg (27.0-35.0); Mean Corpuscular Volume 90.4 fL (81-100); Platelet Count 350 bil/L (150-400)
--- NOTE | 2017-03-08 22:10 | DRSVH ---
PROCEDURE: X-RAY CHEST ONE VIEW, PORTABLE ([id number]) INDICATIONS: CP TECHNIQUE: One view of the chest was acquired. COMPARISON: None. FINDINGS: Surgical changes and devices: travel consultant leads are seen over the chest. In the lower thoracic to lumbar spine region there are surgical changes. Lungs and pleura: No pleural effusions or pneumothorax. Pulmonary vasculature is normal. Outline of the descending aorta, hiatal hernia and medial aspect of the left hemidiaphragm are obscured consiste nt with left lower lobe infiltrate. Mediastinum: Mediastinal contours appear normal. There is a moderate-sized hiatal hernia seen throug h the heart. Heart size is normal. Bones and chest wall: Degenerative changes in the right shoulder joint are present with intra-articul ar bodies as well. Overlying soft tissues appear unremarkable. IMPRESSION: Changes of left lower lobe infiltrate suspicious for pneumonia. Dictated by: William Fraser M.D. on 03/08/2017 at 22:06 Approved by: William Fraser M.D. on 03/08/2017 at 22:07
[2017-03-08 22:17] LABS: TROPONIN T 0.01 ug/L (0.0-0.011)
[2017-03-08 22:29] LABS: Magnesium 2.1 mg/dL (1.6-2.6)
[2017-03-08 23:11] VITALS: BP 109/84; PULSE 102; RESP 20; O2SAT 97
[2017-03-08] MEDS ORDERED: 0.9% Sodium Chloride 500 ML IV ONE (23:20)
[2017-03-08] MEDS ORDERED: Vancomycin Dose per Pharmacist XX ONE (23:25)
[2017-03-08] MEDS ORDERED: levoFLOXacin Inj 750 MG in IV Premix 1 EACH IV ONE (23:25)
[2017-03-08] MEDS ORDERED: Piperacillin-Tazo 3.375 Gm Inj 3.375 GM in Dextrose 5% Minibag Plus 50 ML IV ONE (23:25)
[2017-03-08] MEDS ORDERED: Vancomycin Inj 1,000 MG in IV Premix 1 EACH IV ONE (23:30)
--- NOTE | 2017-03-08 23:34 | ED.REPORT ---
HPI-Chest Pain 40 and Over Date of Service Mar 08, 2017 ED Provider: Aly Fontanez MD Patient is an 86-year-old woman with atrial fibrillation, CHF, and recent right middle lobe pneumonia with hospitalization from 02/23/2017 to 02/28/2017. She has been taking her prednisone and antibiotics as prescribed. She had been feeling better until this morning when she had acute onset chest pain, shortness of breath and cough that has been worse today but increasing over the last couple of days. Her chest pain is midsternal without radiation she has pain upon deep inspiration. She did have one episode of dizziness when getting up to walk. She is not experiencing any headache, nausea, vomiting, abdominal pain, or edema. Nursing Notes Stated Complaint: CHEST PAIN Chief Complaint: Chest Pain Nursing Notes Reviewed: Yes Allergies: Coded Allergies: Contrast Media (Verified Allergy, Severe, RASH, 12/09/16) chlorpromazine (Verified Allergy, Severe, RASH ORAL SWELLING, 12/09/16) RASH & SWELLING codeine (Verified Allergy, Severe, RASH,nausea,hives, 12/09/16) gentamicin (Verified Allergy, Severe, EYES CLOSE WITH THE EYE DROPS, ) iodine (Verified Allergy, Severe, RASH, 12/09/16) povidone (Verified Allergy, Severe, RASH, 12/09/16) prochlorperazine (Verified Allergy, Severe, RASH, THROAT SWELLING AND DIFFICULTY SWALLOWING, 12/09/16) tetanus toxoid, adsorbed (Verified Allergy, Severe, SWELLING, SOB, 12/09/16) hydromorphone (Verified Allergy, Intermediate, Hallucinations, 12/09/16) albuterol (Unverified Allergy, Unknown, 02/23/17) Per pt, tachycardia/HTN aspirin (Verified Allergy, Unknown, interacts with medication Depakote, 12/09/16) nickel (Verified Allergy, Unknown, Rash, 12/09/16) warfarin (Verified Adverse Reaction, Unknown, 12/09/16) States "I didn't get my PT tested and almost bled to " Uncoded Allergies: NICKEL (Allergy, Severe, RASH, 08/13/15) Meclizine (Allergy, Unknown, UNKNOWN, 08/13/15) Scheduled Acetaminophen (Tylenol Arthritis) 650 Mg Tablet.er 1,300 MG PO HS Acetaminophen (Tylenol Arthritis) 650 Mg Tablet.er 650 MG PO MORNING Atorvastatin (Lipitor) 40 Mg Tablet 40 MG PO HS Azithromycin (Zithromax) 250 Mg Tablet 250 MG PO DAILY@1830 Cefdinir (Cefdinir) 300 Mg Capsule 300 MG PO BID Cholecalciferol (Vitamin D3) (Vitamin D3) 1,000 Unit Tab.chew 1,000 UNIT PO DAILY Clopidogrel Bisulfate (Plavix) 75 Mg Tablet 75 MG PO DAILY Divalproex DR (Depakote DR) 500 Mg Tablet 500 MG PO BID Swallowed whole without chewing to avoid local irritation of the mouth and throat. Fluoxetine (Prozac) 40 Mg Capsule 40 MG PO DAILY Furosemide (Furosemide) 40 Mg Tablet 20 MG PO 0830,16 Ipratropium Kremlin (Ipratropium Kremlin Inhalant Solution) 0.2 Mg/1 Ml Solution 0.2 MG IH QID Metoprolol Tartrate (Metoprolol Tartrate) 50 Mg Tablet 25 MG PO BID Pantoprazole DR (Pantoprazole DR) 40 Mg Tablet.dr 40 MG PO DAILYAC Potassium Chloride (Potassium Chloride) 10 Meq Capsule.er 10 MEQ PO DAILY TAKE WITH FOOD Prednisone (Deltasone) 20 Mg Tablet 20 MG PO DAILY Prednisone (PredniSONE) 10 Mg Tablet 10 MG PO DAILY Please start after completing five days of the 20 mg dose and then stop. Ranitidine (Ranitidine) 150 Mg Capsule 150 MG PO BID Scheduled PRN Mirtazapine (Remeron) 45 Mg Tablet 45 MG PO HS PRN PRN Insomnia Polyethylene Glycol 3350 (Miralax) 17 Gm Powd.pack 17 GM PO DAILY PRN PRN For Constipation oxyCODONE (oxyCODONE) 5 Mg Capsule 5 MG PO Q4H PRN PRN For Pain General Time Seen by MD: 22:24 Chief Complaint Chest pain, Shortness of breath Hx Obtained From: Patient Arrived By: Ambulance Sudden in Onset?: Yes Onset Occurred: 9 - 12 hours ago Risk Factors Well's Criteria for PE HR > 100 (1.5) Well's PE Score: 0-2 pts (low risk 3.6%) Past Medical History Past Medical History 1. Atrial fibrillation on Plavix due to history of GI bleeding 2. CHF 3. Hyperlipidemia 4. Peptic Ulcer Disease 5. Seizure disorder 6. Depression 7. Anemia 8. Rheumatic fever 9. History of aspiration pneumonia 10. History of seizures on divalproex Past Surgical History 1. Laminectomies x2 2. Spinal fusions x4 3. Bladder surgeries x2 4. Hysterectomy 5. Tonsillectomy 6. Bowel resection 7. 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 Ambulatory Status Walker Review of Systems A comprehensive review of systems was conducted with the patient and found to be negative except as above in the History of Present Illness. Physical Exam Initial Vital Signs Vital Signs (First) Date Time Temp Pulse Resp B/P Pulse Ox O2 Delivery O2 Flow Rate FiO2 03/08/17 21:44 36.6 115 22 125/64 97 Nasal Cannula 3 Initial VS: Reviewed, Vital signs abnormal (tachycardic) Head / Eyes: Atraumatic, Normocephalic, PERRL ENT: Conjunctiva normal, No scleral icterus Neck: Supple, Non-tender Lymphatic: No lymphadenopathy Extremities: Vascular intact, No swelling, No tenderness Skin: Warm, Dry, No cyanosis Neurologic: Alert, Oriented, Nonfocal Psychiatric: Mood/affect normal, Behavior normal, Normal thought content General/Constitutional: Awake, Alert Distress / Hydration: Positive: Distress mild Respiratory / Chest: No respiratory distress Chest Wall / Ribs: Positive: Chest tender upper L, Chest tender upper R mild diffuse crackles in bases bilaterally Cardiovascular: No murmurs Heart Rate / Rhythm: Positive: Irreg irregular rhythm, Tachycardia Abdomen: Atraumatic, Soft, Non-tender, BS normoactive Interpretation & Diagnostics Lab Results Interpretation Result Diagram: 03/08/17214803/08/172148 Test 03/08/17 21:49 03/09/17 00:01 White Blood Count 11.2th/mm3 (3.8-10.1) Red Blood Count 3.74mil/mm3 (3.90-5.20) Hemoglobin 10.6g/dL (12.0-15.6) Hematocrit 33.8% (35.0-46.0) Mean Corpuscular Volume 90.4fL (81-100) Mean Corpuscular Hemoglobin 28.3pg (27.0-35.0) Mean Corpuscular Hemoglobin Concent 31.4% (32.0-37.0) Red Cell Distribution Width 17.9% (12.3-15.4) Platelet Count 350bil/L (150-400) Neutrophils (%) (Auto) 70.0% (40-74) Lymphocytes (%) (Auto) 22.8% (14-46) Monocytes (%) (Auto) 5.2% (4-12) Eosinophils (%) (Auto) 0.8% (0-5) Basophils (%) (Auto) 0.2% (0-3) Sodium Level 141mEq/L (134-144) Potassium Level 3.8mEq/L (3.5-5.2) Chloride Level 98mEq/L (97-108) Carbon Dioxide Level 25mmol/L (18-29) Blood Urea Nitrogen 23mg/dL (8-27) Creatinine 0.71mg/dL (0.57-1.00) Estimat Glomerular Filtration Rate 112mL/min (>59) Glucose Level 126mg/dL (60-99) Calcium Level 9.0mg/dL (8.5-10.1) Total Bilirubin 0.2mg/dL (0.0-1.2) Aspartate Amino Transf (AST/SGOT) 14U/L (0-50) Alanine Aminotransferase (ALT/SGPT) 7U/L (0-32) Alkaline Phosphatase 61U/L (25-165) Troponin T 0.010ug/L (0.0-0.011) Total Protein 6.8g/dL (6.4-8.4) Albumin 4.1g/dL (3.4-5.0) Lactic Acid Level 1.2mmol/L (0.4-2.0) ECG Interpretation ECG Interpretation: Atrial fibrillation rate of [address]-T changes Grossly unchanged from previous EKG. Time: 21:44 Interpreted by: ED physician X-Ray Chest Interpretation Chest Xray Interpretation: IMPRESSION: Changes of left lower lobe infiltrate suspicious for pneumonia. Dictated by: William Fraser M.D. on 03/08/2017 at 22:06 View: Portable Interpretation / Wet Read by: Interpret - Radiologist Re-Eval/Medical Decision Med Decision/Clinical Course Patient is an 86-year-old woman with atrial fibrillation, CHF, and recent right middle lobe pneumonia with hospitalization from 02/23/2017 to 02/28/2017 presents with acute onset chest pain, shortness of breath, and worsening cough that started this morning. Wells score is 1.5 leaving her low risk for pulmonary embolism. Troponin negative and EKG shows no significant change from previous, making this less likely related to cardiac pain since onset was greater than 8 hours prior to arrival. She has reproduction of chest pain with palpation to chest wall, lactic acid 1.2, pro-calcitonin 0.03. Chest x-ray shows left lower lobe infiltrate that is new since discharge on 02/28. Blood cultures were obtained, broad-spectrum antibiotics were initiated for healthcare associated pneumonia. Gentle fluid resuscitation due to history of CHF was given. Patient's diagnosis and treatment plan including admission to hospital were discussed, questions were answered. Patient was admitted to hospital and transferred to floor in stable condition. Counseled Regarding: Diagnosis, Lab results, Need for admission Discharge & Departure Primary Impression: HCAP (healthcare-associated pneumonia) Additional Impressions: Atrial fibrillation Atrial fibrillation type: chronic Qualified Code: I48.2 - Chronic atrial fibrillation Chest pain, rule out acute myocardial infarction Disposition: ADMITTED TO HOSPITAL Discharge Condition All VS Reviewed: Yes Referrals: Karen Ross MD (PCP) Attending Statement The patient was seen and examined together with Dr. Taylor, and I agree with the history, exam and plan as outlined in the note above. copies to: Karen Ross MD, Howard L MD Mar 08, 2017 23:34 Marissa Taylor DO Mar 08, 2017 23:49
[2017-03-09] VITALS (14 sets, daily range): BP systolic 91–135; BP diastolic 55–93; PULSE 96–121; RESP 17–20; O2SAT 94–100
[2017-03-09] MEDS ORDERED: Alum-Mag Hydrox-Simeth 30 mL Suspension PO PRN (00:15)
[2017-03-09] MEDS ORDERED: Albuterol-Ipratropium 3 mL Inhalation Solution NEB PRN (00:15)
[2017-03-09] MEDS ORDERED: Polyethylene Glycol (PEG) 17 Gm Powder PO PRN ×2 (00:15→02:05)
[2017-03-09 00:56] LABS: Magnesium 2.1 mg/dL (1.6-2.6)
[2017-03-09] MEDS: Heparin 5,000 Unit/mL Inj SUBQ SCH ×2 (02:02→08:35)
--- NOTE | 2017-03-09 02:05 | NUR ---
Admit [facility]PC from ED A&O pt arrived to unit via stretcher at 1325. Pt c/o chest pain with coughing. Denies it being productive since last admission. IV abx were infusing, now Vanco is running. Pt placed on tele, box [id number], [id number] Pt states to live at home, alone, has a caregiver 5x/week for several hours. Is on 2L O2 via NC d/t COPD. Pt oriented to room and facility, denies having questions. States was here 2 weeks ago. VSS. Bed in low position, 2 rails up, call light in reach. Alarm on d/t noted unsteadiness with ambulation upon admission.
--- NOTE | 2017-03-09 02:25 | PCM.HPMED ---
Subjective Date of Service Mar 09, 2017 Primary Provider: Admitting Physician: Primary Care Physician: Karen Ross MD Attending Physician: Admit Status: From the Emergency Department, Full Admit, Remote Telemetry Chief Complaint: Chest pressure . History of Present Illness: Jacqueline de leon is an 86-year-old woman with a past medical history significant for atrial fibrillation, CHF, COPD oxygen dependent, and recent right middle lobe pneumonia and COPD exacerbation hospitalized from 02/23/2017- 02/28/2017 who presents to [facility] emergency Department with increasing shortness of breath, worsening cough and pleuritic chest pain. She has been taking her prednisone and antibiotics as prescribed. She had been feeling better until this morning when she had worsening shortness of breath in which she had to increase her oxygen from 2 L to 4 L. She also reports worsening cough and pleuritic chest pain over the last several days. Her chest pain is midsternal without radiation she has pain upon deep inspiration. She did have one episode of dizziness when getting up to walk to the ambulance. She is not experiencing any headache, vision changes, sore throat, nausea, vomiting, abdominal pain, dysuria, or constipation. She does endorse diarrhea for approximately a week since starting antibiotics and chronic rhinitis associated with oxygen use. She has no other complaints. She has had a poor appetite at home but has been trying to drink plenty of fluids including nectar shakes and water. Vital signs in the ER: Temperature 36.6. Pulse 1:15. Respiratory rate 22. Blood pressure 125/64. Pulse ox 97% on 3 L nasal cannula. She was given 500 mL of NS 1, Zosyn IV 3.375 g 1, levofloxacin IV 750 mg 1, and vancomycin IV 1000 mg 1[address] PCP is Dr. Ross. . Review of Systems: A comprehensive review of systems was conducted with the patient and found to be negative except as above in the History of Present Illness. . Allergies Coded Allergies: Contrast Media (Verified Allergy, Severe, RASH, 12/09/16) chlorpromazine (Verified Allergy, Severe, RASH ORAL SWELLING, 12/09/16) RASH & SWELLING codeine (Verified Allergy, Severe, RASH,nausea,hives, 12/09/16) gentamicin (Verified Allergy, Severe, EYES CLOSE WITH THE EYE DROPS, ) iodine (Verified Allergy, Severe, RASH, 12/09/16) povidone (Verified Allergy, Severe, RASH, 12/09/16) prochlorperazine (Verified Allergy, Severe, RASH, THROAT SWELLING AND DIFFICULTY SWALLOWING, 12/09/16) tetanus toxoid, adsorbed (Verified Allergy, Severe, SWELLING, SOB, 12/09/16) hydromorphone (Verified Allergy, Intermediate, Hallucinations, 12/09/16) albuterol (Unverified Allergy, Unknown, 02/23/17) Per pt, tachycardia/HTN aspirin (Verified Allergy, Unknown, interacts with medication Depakote, 12/09/16) nickel (Verified Allergy, Unknown, Rash, 12/09/16) warfarin (Verified Adverse Reaction, Unknown, 12/09/16) States "I didn't get my PT tested and almost bled to " Uncoded Allergies: NICKEL (Allergy, Severe, RASH, 08/13/15) Meclizine (Allergy, Unknown, UNKNOWN, 08/13/15) Home Medications Acetaminophen 650 mg every morning and 1300 mg daily at bedtime. Atorvastatin 40 mg daily at bedtime. Vitamin D3 1000 international units daily. Plavix 75 mg daily. Depakote 500 mg twice a day. Fluoxetine 40 mg daily. Furosemide 20 mg twice a day. Ipratropium 0.2 mg inhaled 4 times a day. Metoprolol 25 mg twice a day. Mirtazapine 45 mg PRN daily at bedtime. Oxycodone 5 mg every 4 hours as needed for pain. Pantoprazole 40 mg daily. MiraLAX 17 g daily as needed for constipation. Potassium chloride 10 mEq daily with food. Ranitidine 150 mg twice a day. . PMH 1. Atrial fibrillation on Plavix due to history of GI bleeding. 2. Pulmonary hypertension/CHF oxygen dependent. 3. Hyperlipidemia. 4. Peptic Ulcer Disease. 5. History of seizures on Depakote. 6. Depression. 7. Iron deficiency anemia 8. Rheumatic fever. 9. History of aspiration pneumonia. 10. Prediabetes. 11. Urinary incontinence. . Surgical History 1. Laminectomies x2. 2. Spinal fusions x4. 3. Bladder surgeries x2. 4. Hysterectomy. 5. Tonsillectomy. 6. Bowel resection. 7. Bilateral hip replacements. 8. Left TKA. . Social History Hx Alcohol Use: Yes (rarely, one glass of wine per month ) Hx Substance Use: No Hx Tobacco Use: Yes (1 PPD 30+ years, quit in 1984) Smoking Status: Former Smoker Additional Information She is and . She had 4 sons 2 of which are living. Her first child had cerebral cancer and from necrotizing enterocolitis. Her second son went missing and is reportedly by Social Security. Her third son has renal cancer. And her fourth son is healthy. The patient is a former nurse. . Exam Vital Signs Vital Sign - Last Date Time Temp Pulse Resp B/P Pulse Ox O2 Delivery O2 Flow Rate FiO2 03/09/17 00:13 101 17 106/63 94 Nasal Cannula 3 03/08/17 21:44 36.6 Intake and Output 03/08/17 03/08/17 03/09/17 Cumulative From/Thru 14:58 22:58 06:58 03/08/17 21:44 - 03/08/17 23:54 Intake Total 500 ml 500 ml Balance 500 ml 500 ml Intake IV Total 500 ml 500 ml Exam General: Elderly female lying in bed and in no acute distress, well-developed, well-nourished, appropriately interactive. HEENT: Normocephalic, atraumatic. External ears without defect. Pupils equal, round, and reactive to light Anicteric sclerae, moist conjunctivae, and no lid lag. Oropharynx free of erythema and cobble stoning with dry mucosa. Neck: Supple with full range of motion. No jugular venous distension. No bruits. No lymphadenopathy or thyromegaly. Cardiovascular: Irregularly irregular without murmurs, rubs, or gallops appreciated. Pulmonary: Diminished breath sounds bilaterally with fine crackles at left base. No wheezes or rhonchi. Normal respiratory effort with no use of accessory muscles. Abdomen: Soft, nontender, nondistended, bowel sounds present. No hepatosplenomegaly or masses appreciated. Extremities: No clubbing or cyanosis. Trace edema of left lower extremity to ankle. Skin: Normal temperature, turgor, and texture; no rash, ulcers, or subcutaneous nodules appreciated. Neurological: Cranial nerves grossly intact. No known gait impairment. Psychiatric: Normal mood and affect. Alert and oriented to person, place, and time. . Lab and Diagnostics Labs Item Value Date Time Calcium Level 9.0 mg/dL 03/08/172148 Magnesium Level 2.1 mg/dL 03/08/172148 Total Bilirubin 0.2 mg/dL 03/08/172148 Aspartate Amino Transf (AST/SGOT) 14 U/L 03/08/172148 Alanine Aminotransferase (ALT/SGPT) 7 U/L 03/08/172148 Alkaline Phosphatase 61 U/L 03/08/172148 Troponin T 0.010 ug/L 03/08/172148 Total Protein 6.8 g/dL 03/08/172148 Albumin 4.1 g/dL 03/08/172148 Result Diagram: 03/08/17214803/08/172148 Microbiology Blood culture 2 pending. . X-Rays, CTs and MRIs X-RAY CHEST ONE VIEW, PORTABLE IMPRESSION: Changes of left lower lobe infiltrate suspicious for pneumonia. Dictated by: William Fraser M.D. on 03/08/2017 at 22:06 . 12-lead ECG EKG: Atrial fibrillation, heart rate 108, no pathological Q waves or acute ischemic changes such as ST elevation or depression. . Assessment & Plan Jacqueline de leon is an 86-year-old woman with a past medical history significant for atrial fibrillation, CHF, COPD oxygen dependent, and recent right middle lobe pneumonia and COPD exacerbation hospitalized from 02/23/2017- 02/28/2017 who presents to [facility] emergency Department with increasing shortness of breath, worsening cough and pleuritic chest pain. 1. Acute left lower lobe hospital-acquired pneumonia with possible aspiration pneumonia, present on admission. Active. - Patient presented with shortness of breath, pleuritic chest pain, worsening cough and mild leukocytosis. Recently hospitalized from 02/23/2017-02/28/2017. - Chest x-ray demonstrated left lower lobe infiltrate consistent with pneumonia , as above (reviewed by admitting team). - Lactic acid normal at 1.2. - Pro-calcitonin normal at 0.03. - Ordered complete pneumonia workup including blood cultures 2, sputum Gram stain and culture, strep pneumoniae and legionella urine antigens, and respiratory viral PCR, pending. - Ordered MRSA screen. - Tylenol as needed for fever and pain. - Patient received Zosyn IV 3.375 g 1, levofloxacin IV 750 mg 1 and vancomycin with dosing per pharmacy in the ED. Continue Zosyn, levofloxacin and vancomycin pending MRSA screen. - Ordered Atrovent as needed for shortness of breath. - Order speech evaluation to assess the patient for silent aspiration as her pneumonia is recurring. - Continue supplemental oxygen titrate up as needed. Patient is on 2 L at rest and 3 L with ambulation at baseline. - Tessalon Perles 100 mg 3 times a day as needed for cough. Chronic problems: 2. Chronic atrial fibrillation, present on admission. Stable. - Continue metoprolol 25 mg twice a day and Plavix 75 mg daily. 3. Hyperlipidemia, presently on admission. Stable. - Continue atorvastatin 40 mg daily at bedtime. 4. History of peptic ulcer disease, present on admission. Presumed stable. - Continue Protonix 40 mg daily and H2 antony twice daily. 5. History of seizures on Depakote, present on admission. - Continue Depakote 500 mg twice a day. 6. History of pulmonary hypertension with possible cor pulmonale, present on admission. Presumed stable. - Continue furosemide 20 mg twice a day. - Continue potassium chloride 10 mEq daily. Continue supplemental oxygen titrate up as needed. Patient is on 2 L at rest and 3 L with ambulation at baseline. 7. Insomnia, present on admission. Stable. - Mirtazapine 45 mg daily at bedtime as needed for insomnia. 8. Depression, present on admission. Stable. - Continue fluoxetine 40 mg daily. PRN antiemetics: Zofran and Maalox. PRN bowel regimen: Senna and MiraLAX. PRN analgesics: Tylenol and oxycodone 5 mg Q4H PRN pain. Patient is admitted under inpatient status with expected length of stay greater than 2 midnights due to severity of presenting symptoms, risk of adverse event, and complexity of treatment plan. . VTE Prophylaxis: Sub-Q Heparin (Unfractionated) Resuscitation Status: DNR/DNI:Do Not Resuscitate/Intubate Attending Statement The patient was seen and examined together with house staff on 03/09/2017 and I agree with the history, exam and plan as outlined in the note above. Qiana Casanova DO Mar 09, 2017 00:14 Cindy Casas DO Mar 09, 2017 03:35
[2017-03-09] MEDS: Ipratropium 0.02% 0.5 mg/2.5 mL Inhalation Solution NEB SCH ×3 (06:01→17:05)
[2017-03-09 06:21] LABS: BASOPHILS % (AUTO) 0.3 % (0-3); EOSINOPHILS % (AUTO) 2.7 % (0-5); MONOCYTES % (AUTO) 5.5 % (4-12); Mean Corpuscular Hemoglobin 27.8 pg (27.0-35.0); Mean Corpuscular Volume 92 fL (81-100); NEUTROPHILS % (AUTO) 50.8 % (40-74); Platelet Count 109 bil/L (150-400)
[2017-03-09] MEDS: Pantoprazole 40 mg ER24 Tablet PO SCH (06:50)
[2017-03-09] MEDS: Piperacillin-Tazo 3.375 Gm Inj 3.375 GM in Dextrose 5% Minibag Plus 50 ML IV SCH ×2 (08:34→16:03)
[2017-03-09 11:05] LABS: APPEARANCE,URINE HAZY (CLEAR,HAZY); COLOR,URINE STRAW (YELLOW); OCCULT BLOOD,URINE NEGATIVE (NEGATIVE); UROBILINOGEN,URINE NORMAL (NORMAL); YEAST,URINE FEW (NONE SEEN)
--- NOTE | 2017-03-09 12:00 | NUR ---
Evaluation completed. Please go to "Notes" then click on "Assessments and Notes" (bottom left corner of screen). Then select appropriate discipline tab on top of screen.
--- NOTE | 2017-03-09 12:31 | PCM.PNMED ---
Subjective Date of Service Mar 09, 2017 Subjective Patient without new complaints. Did ask her whether she has had swallow evaluation in the past to check for swallow difficulties she said several years ago but nothing recent. Exam Vital Signs Vital Sign - Last Date Time Temp Pulse Resp B/P Pulse Ox O2 Delivery O2 Flow Rate FiO2 03/09/17 12:03 108 20 97 Nasal Cannula 1.00 03/09/17 09:53 36.9 91/57 Intake and Output 03/08/17 03/08/17 03/09/17 Cumulative From/Thru 15:00 23:00 07:00 03/08/17 21:44 - 03/09/17 05:49 Intake Total 999 ml 999 ml Balance 999 ml 999 ml IV Total 999 ml 999 ml Exam Constitutional: Elderly female in no acute distress Head: Normocephalic atraumatic Chest: Has some crackles at her left base Cor: Irregular regular rate and rhythm S1-S2 2/6 systolic ejection murmur Abdomen: Soft nontender bowel sounds present Extremities no pedal edema Neuro alert and oriented 3, motor strength is intact bilaterally Psych mood and affect are appropriate Lab and Diagnostics Result Diagram: 03/09/17 0550 03/09/17 0550 Microbiology Blood culture 2 pending. . X-Rays, CTs and MRIs X-RAY CHEST ONE VIEW, PORTABLE IMPRESSION: Changes of left lower lobe infiltrate suspicious for pneumonia. Dictated by: William Fraser M.D. on 03/08/2017 at 22:06 . 12-lead ECG EKG: Atrial fibrillation, heart rate 108, no pathological Q waves or acute ischemic changes such as ST elevation or depression. . Assessment & Plan Jacqueline de leon is an 86-year-old woman with a past medical history significant for atrial fibrillation, CHF, COPD oxygen dependent, and recent right middle lobe pneumonia and COPD exacerbation hospitalized from 02/23/2017- 02/28/2017 who presents to [facility] emergency Department with increasing shortness of breath, worsening cough and pleuritic chest pain. 1. Acute left lower lobe hospital-acquired pneumonia with possible aspiration pneumonia, present on admission. Active. - Patient presented with shortness of breath, pleuritic chest pain, worsening cough and mild leukocytosis. Recently hospitalized from 02/23/2017-02/28/2017. - Chest x-ray demonstrated left lower lobe infiltrate consistent with pneumonia , as above (reviewed by admitting team). - Lactic acid normal at 1.2. - Pro-calcitonin normal at 0.03. - Ordered complete pneumonia workup including blood cultures 2, sputum Gram stain and culture, strep pneumoniae and legionella urine antigens. Respiratory PCR was negative - Ordered MRSA screen which returned negative. - Tylenol as needed for fever and pain. - Patient received Zosyn IV 3.375 g 1, levofloxacin IV 750 mg 1 and vancomycin with dosing per pharmacy in the ED. Continue Zosyn, levofloxacin and vancomycin pending MRSA screen which was negative so vancomycin was DC'd.. - Ordered Atrovent as needed for shortness of breath. - Order speech evaluation to assess the patient for silent aspiration as her pneumonia is recurring. - Continue supplemental oxygen titrate up as needed. Patient is on 2 L at rest and 3 L with ambulation at baseline. - Tessalon Perles 100 mg 3 times a day as needed for cough. -Concern is for possible aspiration pneumonia recurrent last time she was here she had a right middle lobe infiltrate and now left lower lobe infiltrate so we will get speech therapy for swallow evaluation and further testing. Chronic problems: 2. Chronic atrial fibrillation, present on admission. Stable. - Continue metoprolol 25 mg twice a day and Plavix 75 mg daily. 3. Hyperlipidemia, presently on admission. Stable. - Continue atorvastatin 40 mg daily at bedtime. 4. History of peptic ulcer disease, present on admission. Presumed stable. - Continue Protonix 40 mg daily and H2 antony twice daily. 5. History of seizures on Depakote, present on admission. - Continue Depakote 500 mg twice a day. 6. History of pulmonary hypertension with possible cor pulmonale, present on admission. Presumed stable. - Continue furosemide 20 mg twice a day. - Continue potassium chloride 10 mEq daily. Continue supplemental oxygen titrate up as needed. Patient is on 2 L at rest and 3 L with ambulation at baseline. 7. Insomnia, present on admission. Stable. - Mirtazapine 45 mg daily at bedtime as needed for insomnia. 8. Depression, present on admission. Stable. - Continue fluoxetine 40 mg daily. PRN antiemetics: Zofran and Maalox. PRN bowel regimen: Senna and MiraLAX. PRN analgesics: Tylenol and oxycodone 5 mg Q4H PRN pain. Patient is admitted under inpatient status with expected length of stay greater than 2 midnights due to severity of presenting symptoms, risk of adverse event, and complexity of treatment plan. . VTE Prophylaxis: Sub-Q Heparin (Unfractionated) VTE Mechanical Devices: Intermittant Pneumatic CD Resuscitation Status: DNR/DNI:Do Not Resuscitate/Intubate Time spent 30 minutes Scarlett Roque MD Mar 09, 2017 12:31
--- NOTE | 2017-03-09 15:37 | NUR ---
Social Work-initial assessment: Data:See initial assessment. Pt is a 86 y/o female who was admitted on 03/09/17 for pneumonia per H&P. Pt's insurance is [employer] and PCP is Karen Ross MD. EMR Reviewed. SW met with pt at bedside, SW role explained. Pt is a readmission discharging home with caregivers and HH. Pt is alert and oriented x3. Pt resides at home alone where she remains independent with basic ADLS. Pt has caregivers 5 times a week, private pay through [facility] [employer].Pt uses a fww and does not drive. Pt has [facility] currently, MD order received. SW informed Talha with [facility] of pt's admission, access given. Pt has SNF history at [facility]. Pt has no LT insurance or VA benefits. SW discussed DPOA/ advanced directive, pt confirms she has completed this, SW encouraged a copy to be brought in. Pt has home O2 through [facility]. SW provided pt with discharge planning checklist and encouraged her to call with any questions. SW provided phone number on [employer] board. Pt's caregiver to transport home. SW will continue to follow. Assessment:Pt who has HH currently. Plan:Pt to discharge home when medically stable via POV. Pt will need resume HH through [facility] . Pt has caregivers 5 days a week. SW will continue to follow. ALDO Blanton Addendum: 03/09/17 at 1539 by YEIMI SANTORO SS Amended: Links added.
--- NOTE | 2017-03-09 18:28 | NUR ---
Opiate Dependence/Behavior Pt has been c/o pain though no objective s/sx of pain and pt often sleeping through the shift. Received phone call from family member that was concerned about narcotic seeking behaviors, they explained opiate tolerance and compliance issues that the patient has dealt with. 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 They went on to explain that the patient has gone through 60 percocet on more than one occasion over a weekend. Passed this information on to dr more who cancelled the iv morphine and will just use home oxycodone for pain management. Pt has now stopped calling to get up to the commode, and is soaking the bed consciously. This is new behavior, and it appears to be attention seeking in nature. Pt is a&ox3, however they will no longer call. We have begun routine checks to establish a toileting schedule.
[2017-03-09] MEDS ORDERED: Ipratropium 0.02% 0.5 mg/2.5 mL Inhalation Solution NEB PRN ×2 (19:10→19:14)
[2017-03-09] MEDS ORDERED: levoFLOXacin Inj 750 MG in IV Premix 1 EACH IV SCH (23:00)
[2017-03-10] VITALS (8 sets, daily range): BP systolic 91–113; BP diastolic 47–67; PULSE 102–124; RESP 16–18; O2SAT 94–98
[2017-03-10] MEDS: Piperacillin-Tazo 3.375 Gm Inj 3.375 GM in Dextrose 5% Minibag Plus 50 ML IV SCH ×4 (00:49→23:44)
--- NOTE | 2017-03-10 01:35 | NUR ---
A-fib RVR (Assumed care around 2299) Tele report a-fib 110s sustain since 4pm, pt c/o chest pain 6-810 & pressure with cough since admission. BP stable 113/49 RR 18 SPO2 94% on O2 1l. Charge nurse Jorge John informed and he is not very concerned. Dr. Casas paged at 0109 no order given at this time. Addendum: 03/10/17 at 0140 by RONEL HENRIQUEZ RN Tylenol given at 0042. Addendum: 03/10/17 at 0501 by RONEL HENRIQUEZ RN Tele: a-fib remains 110s,sometimes jump to 130s per senior radiation protection technician. Pt, c/o mid chest pain 6-8/10 esequiel. with cough, palpitation and SOB. BP 91/67. Dr. Casas paged again at [phone], Morphine 1-2mg IVq4h ordered, will be given, and EKG at 0700 ordered. Continue monitoring. Addendum: 03/10/17 at 0624 by RONEL HENRIQUEZ RN After Morphine given, A-fib HR down some to 90s-100s sometimes bounce back to 115 per senior radiation protection technician. Pt sleeping comfortably at this time.
[2017-03-10 06:36] LABS: Mean Corpuscular Volume 90.3 fL (81-100)
[2017-03-10 06:37] LABS: BASOPHILS % (AUTO) 0.2 % (0-3); MONOCYTES % (AUTO) 8.8 % (4-12); Mean Corpuscular Hemoglobin 27.9 pg (27.0-35.0); NEUTROPHILS % (AUTO) 64.8 % (40-74); Platelet Count 301 bil/L (150-400)
[2017-03-10] MEDS: Pantoprazole 40 mg ER24 Tablet PO SCH (08:19)
--- NOTE | 2017-03-10 13:26 | NUR ---
spiritual care: pt request Visited with pt who was having a difficult time talking due to coughing. Oriented pt to spiritual care and offered a blessing. Spiritual care will continue to follow as needed.
--- NOTE | 2017-03-10 14:57 | PCM.PNMED ---
Subjective Date of Service Mar 10, 2017 Subjective Patient in bed resting his daughter is at bedside. Per daughter cough seems to be a little bit better. Exam Vital Signs Vital Sign - Last Date Time Temp Pulse Resp B/P Pulse Ox O2 Delivery O2 Flow Rate FiO2 03/10/17 12:19 99 03/10/17 09:04 36.8 18 98/65 95 Nasal Cannula 1.00 Intake and Output 03/09/17 03/09/17 03/10/17 Cumulative From/Thru 15:00 23:00 07:00 03/08/17 21:44 - 03/10/17 05:24 Intake Total 150 ml 100 ml 379 ml 1628 ml Output Total 300 ml 600 ml 900 ml Balance -150 ml -500 ml 379 ml 728 ml Intake Oral 150 ml 100 ml 250 ml IV Total 379 ml 1378 ml Output Urine Total 300 ml 600 ml 900 ml # Voids 1 2 3 # Bowel Movements 1 3 4 Exam Constitutional: Elderly woman in no acute distress Head: Normocephalic atraumatic Chest: Crackles at her left base Cor: Regular rate and rhythm S1-S2 Abdomen: Soft nontender bowel sounds present Extremities: No pedal edema Neuro: Alert and oriented 3, motor strength is intact bilaterally IVs and Medications Medications Reviewed: Medications were reviewed in detail Lab and Diagnostics Laboratory Tests 72 Hours Test 03/08/17 21:49 03/09/17 00:01 03/09/17 00:30 03/09/17 05:50 White Blood Count 11.2th/mm3 (3.8-10.1) 6.4th/mm3 (3.8-10.1) Red Blood Count 3.74mil/mm3 (3.90-5.20) 3.63mil/mm3 (3.90-5.20) Hemoglobin 10.6g/dL (12.0-15.6) 10.1g/dL (12.0-15.6) Hematocrit 33.8% (35.0-46.0) 33.2% (35.0-46.0) Mean Corpuscular Volume 90.4fL (81-100) 92fL (81-100) Mean Corpuscular Hemoglobin 28.3pg (27.0-35.0) 27.8pg (27.0-35.0) Mean Corpuscular Hemoglobin Concent 31.4% (32.0-37.0) 30.4% (32.0-37.0) Red Cell Distribution Width 17.9% (12.3-15.4) 18.0% (12.3-15.4) Platelet Count 350bil/L (150-400) 109bil/L (150-400) Neutrophils (%) (Auto) 70.0% (40-74) 50.8% (40-74) Lymphocytes (%) (Auto) 22.8% (14-46) 39.4% (14-46) Monocytes (%) (Auto) 5.2% (4-12) 5.5% (4-12) Eosinophils (%) (Auto) 0.8% (0-5) 2.7% (0-5) Basophils (%) (Auto) 0.2% (0-3) 0.3% (0-3) Sodium Level 141mEq/L (134-144) 145mEq/L (134-144) Potassium Level 3.8mEq/L (3.5-5.2) 4.3mEq/L (3.5-5.2) Chloride Level 98mEq/L (97-108) 103mEq/L (97-108) Carbon Dioxide Level 25mmol/L (18-29) 26mmol/L (18-29) Blood Urea Nitrogen 23mg/dL (8-27) 17mg/dL (8-27) Creatinine 0.71mg/dL (0.57-1.00) 0.64mg/dL (0.57-1.00) Estimat Glomerular Filtration Rate 112mL/min (>59) 126mL/min (>59) Glucose Level 126mg/dL (60-99) 88mg/dL (60-99) Calcium Level 9.0mg/dL (8.5-10.1) 8.5mg/dL (8.5-10.1) Magnesium Level 2.1mg/dL (1.6-2.6) 2.1mg/dL (1.6-2.6) Total Bilirubin 0.2mg/dL (0.0-1.2) 0.2mg/dL (0.0-1.2) Aspartate Amino Transf (AST/SGOT) 14U/L (0-50) 14U/L (0-50) Alanine Aminotransferase (ALT/SGPT) 7U/L (0-32) 6U/L (0-32) Alkaline Phosphatase 61U/L (25-165) 54U/L (25-165) Troponin T 0.010ug/L (0.0-0.011) Total Protein 6.8g/dL (6.4-8.4) 5.9g/dL (6.4-8.4) Albumin 4.1g/dL (3.4-5.0) 3.8g/dL (3.4-5.0) Lactic Acid Level 1.2mmol/L (0.4-2.0) Procalcitonin 0.03ng/mL (0.00-0.08) Band Neutrophils % 1% (1-5) Test 03/09/17 10:35 03/09/17 10:48 03/10/17 06:05 Urine Legionella pneumophilia Ag Negative (Negative) Urine Color Straw (YELLOW) Urine Appearance Hazy (CLEAR,HAZY) Urine pH 7.0 (5.0-8.0) Urine Specific [place] 1.010 (1.003-1.035) Urine Protein Negativemg/dL (NEG,TRACE) Urine Glucose (UA) Negativemg/dL (NEGATIVE) Urine Ketones Negativemg/dL (NEGATIVE) Urine Occult Blood Negative (NEGATIVE) Urine Nitrite Negative (NEGATIVE) Urine Bilirubin Negative (NEGATIVE) Urine Urobilinogen Normalmg/dL (NORMAL) Urine Leukocyte Esterase Small (NEGATIVE) Urine RBC 0-2/hpf (0-2) Urine WBC 0-5/hpf (0-5) Urine Epithelial Cells Occasional/hpf (NONE-MOD) Urine Crystals None seen (NONE SEEN) Urine Bacteria None/hpf (NONE-FEW) Urine Hyaline Casts None/lpf (NONE) Urine Granular Casts None seen (NONE SEEN) Urine Waxy Casts None seen (NONE SEEN) Urine Red Blood Cell Casts None seen (NONE SEEN) Urine White Blood Cell Casts None seen (NONE SEEN) Urine Mucus None seen (None Seen) Urine Trichomonas None seen (NONE SEEN) Urine Yeast Few (NONE SEEN) Urinalysis Comment None Urine Culture Reflexed Indicated White Blood Count 8.9th/mm3 (3.8-10.1) Red Blood Count 3.62mil/mm3 (3.90-5.20) Hemoglobin 10.1g/dL (12.0-15.6) Hematocrit 32.7% (35.0-46.0) Mean Corpuscular Volume 90.3fL (81-100) Mean Corpuscular Hemoglobin 27.9pg (27.0-35.0) Mean Corpuscular Hemoglobin Concent 30.9% (32.0-37.0) Red Cell Distribution Width 17.8% (12.3-15.4) Platelet Count 301bil/L (150-400) Neutrophils (%) (Auto) 64.8% (40-74) Lymphocytes (%) (Auto) 21.9% (14-46) Monocytes (%) (Auto) 8.8% (4-12) Eosinophils (%) (Auto) 3.0% (0-5) Basophils (%) (Auto) 0.2% (0-3) Sodium Level 141mEq/L (134-144) Potassium Level 4.5mEq/L (3.5-5.2) Chloride Level 99mEq/L (97-108) Carbon Dioxide Level 28mmol/L (18-29) Blood Urea Nitrogen 16mg/dL (8-27) Creatinine 0.84mg/dL (0.57-1.00) Estimat Glomerular Filtration Rate 92mL/min (>59) Glucose Level 106mg/dL (60-99) Calcium Level 8.8mg/dL (8.5-10.1) Total Bilirubin 0.2mg/dL (0.0-1.2) Aspartate Amino Transf (AST/SGOT) 15U/L (0-50) Alanine Aminotransferase (ALT/SGPT) 6U/L (0-32) Alkaline Phosphatase 60U/L (25-165) Total Protein 5.9g/dL (6.4-8.4) Albumin 3.5g/dL (3.4-5.0) Result Diagram: 03/10/1760403/10/17604 Microbiology Blood culture 2 pending. . X-Rays, CTs and MRIs X-RAY CHEST ONE VIEW, PORTABLE IMPRESSION: Changes of left lower lobe infiltrate suspicious for pneumonia. Dictated by: William Fraser M.D. on 03/08/2017 at 22:06 . 12-lead ECG EKG: Atrial fibrillation, heart rate 108, no pathological Q waves or acute ischemic changes such as ST elevation or depression. . Assessment & Plan Jacqueline de leon is an 86-year-old woman with a past medical history significant for atrial fibrillation, CHF, COPD oxygen dependent, and recent right middle lobe pneumonia and COPD exacerbation hospitalized from 02/23/2017- 02/28/2017 who presents to [facility] emergency Department with increasing shortness of breath, worsening cough and pleuritic chest pain. 1. Acute left lower lobe hospital-acquired pneumonia with possible aspiration pneumonia, present on admission. Active. - Patient presented with shortness of breath, pleuritic chest pain, worsening cough and mild leukocytosis. Recently hospitalized from 02/23/2017-02/28/2017. - Chest x-ray demonstrated left lower lobe infiltrate consistent with pneumonia , as above (reviewed by admitting team). - Lactic acid normal at 1.2. - Pro-calcitonin normal at 0.03. - Ordered complete pneumonia workup including blood cultures 2, sputum Gram stain and culture, strep pneumoniae and legionella urine antigens. Respiratory PCR was negative - Ordered MRSA screen which returned negative. - Tylenol as needed for fever and pain. - Patient received Zosyn IV 3.375 g 1, levofloxacin IV 750 mg 1 and vancomycin with dosing per pharmacy in the ED. Continue Zosyn, levofloxacin and vancomycin pending MRSA screen which was negative so vancomycin was DC'd.. - Ordered Atrovent as needed for shortness of breath. - Order speech evaluation to assess the patient for silent aspiration as her pneumonia is recurring. - Continue supplemental oxygen titrate up as needed. Patient is on 2 L at rest and 3 L with ambulation at baseline. - Tessalon Perles 100 mg 3 times a day as needed for cough. -Concern is for possible aspiration pneumonia recurrent last time she was here she had a right middle lobe infiltrate and now left lower lobe infiltrate so we will get speech therapy for swallow evaluation and further testing. -Of note Levaquin was DC'd as she did have some prolongation as noted on telemetry and 12 week hence this was DC'd Chronic problems: 2. Chronic atrial fibrillation, present on admission. Stable. - Continue metoprolol 25 mg twice a day and Plavix 75 mg daily. -While here she did have some elevated heart rates so we will go ahead and add digoxin to her regimen as I do not think blood pressure will tolerate increase in her metoprolol 3. Hyperlipidemia, presently on admission. Stable. - Continue atorvastatin 40 mg daily at bedtime. 4. History of peptic ulcer disease, present on admission. Presumed stable. - Continue Protonix 40 mg daily and H2 antony twice daily. 5. History of seizures on Depakote, present on admission. - Continue Depakote 500 mg twice a day. 6. History of pulmonary hypertension with possible cor pulmonale, present on admission. Presumed stable. - Continue furosemide 20 mg twice a day. - Continue potassium chloride 10 mEq daily. Continue supplemental oxygen titrate up as needed. Patient is on 2 L at rest and 3 L with ambulation at baseline. # Chronic respiratory failure with hypoxia,on chronic O2,POA -Contnue supplemental O2 - Most likely secondary to pulmonary hypertension as above # Chronic diastolic heart failure, present on admission -Continue her current medications of Lasix and metoprolol. 7. Insomnia, present on admission. Stable. - Mirtazapine 45 mg daily at bedtime as needed for insomnia. 8. Depression, present on admission. Stable. - Continue fluoxetine 40 mg daily. PRN antiemetics: Zofran and Maalox. PRN bowel regimen: Senna and MiraLAX. PRN analgesics: Tylenol and oxycodone 5 mg Q4H PRN pain. Patient is admitted under inpatient status with expected length of stay greater than 2 midnights due to severity of presenting symptoms, risk of adverse event, and complexity of treatment plan. . VTE Prophylaxis: Sub-Q Heparin (Unfractionated) VTE Mechanical Devices: Intermittant Pneumatic CD Resuscitation Status: DNR/DNI:Do Not Resuscitate/Intubate Time spent 30 minutes Scarlett Roque MD Mar 10, 2017 14:57
--- NOTE | 2017-03-10 18:12 | NUR ---
pain pt c/o 810chest pressure through out shift that was relieved by 5mg oxycodone q4h
--- NOTE | 2017-03-10 22:07 | NUR ---
V-tach Katy reported at 1956 a-fib 99-137, 6 beats of V-tach. Pt c/o mid chest pain 6-8/10 with cough. Scheduled Metoprolol 25mg po given. HR down to 92 a-fib in about 1 hour. STEFF Casas informed. Addendum: 03/11/17 at 0556 by RONEL HENRIQUEZ RN HR down to 70s a-fib.
[2017-03-11] VITALS (11 sets, daily range): BP systolic 81–114; BP diastolic 48–74; PULSE 70–111; RESP 18–20; O2SAT 86–98
[2017-03-11 06:16] LABS: BASOPHILS % (AUTO) 0.1 % (0-3); EOSINOPHILS % (AUTO) 3.8 % (0-5); MONOCYTES % (AUTO) 8.9 % (4-12); Mean Corpuscular Hemoglobin 27.9 pg (27.0-35.0); Mean Corpuscular Volume 90.3 fL (81-100); NEUTROPHILS % (AUTO) 61.8 % (40-74); Platelet Count 325 bil/L (150-400)
[2017-03-11] MEDS: Piperacillin-Tazo 3.375 Gm Inj 3.375 GM in Dextrose 5% Minibag Plus 50 ML IV SCH ×2 (09:38→16:18)
[2017-03-11] MEDS: Pantoprazole 40 mg ER24 Tablet PO SCH (09:42)
--- NOTE | 2017-03-11 13:58 | NUR ---
Chest Pain: Patient complained of sharp constant pain in chest 05/12, worsens with deep breath and talking. O2sat 94% 2L NC. A-fib 112 per spa technician. BP 84/67. Awaiting EKG. Addendum: 03/11/17 at 1456 by WASHINGTON LEONARDO RN EKG obtained. notified. Oxycodone administered. On reassessment, chest pain 01/10.
--- NOTE | 2017-03-11 14:16 | NUR ---
NUTRITION ASSESSMENT: Assess: 85 yo female admitted for pneumonia. Pt was seen by speech therapy and placed on a dysphagia mechanical diet with thin liquids. Po intake has been bites-50% x 2 days. PMHx: diastolic CHF, peptic ulcer disease, gastritis, afib, rheumatic fever, depression, seizure disorder, HLD, 2 laminectomies, 4 spinal fusions, 2 bladder surgeries, bowel resection, bilateral hip replacements, hysterectomy, appendectomy, tonsillectomy. LABS: Reviewed. Alb 3.7. MEDICATIONS: Reviewed. DIET: Dysphagia Mechanical. PO bites-50%. GI symptoms/stool: BM x 1 today. ANTHROPOMETRICS: Current Wt: 71.6 kg ESTIMATED NEEDS: Calories: 7436-7502 kcal (25-30 kcal/kg BW) Protein: 70-85 g (1.0-1.2 g/kg BW) NUTRITION DIAGNOSIS: 1) Inadequate oral intake related to inability to consume sufficient energy as evidenced by po intake of 0-50% of meals x 2 days. 2) Chewing and swallowing difficulty related to poor swallowing function as evidenced by current need for mechanically altered diet texture, ST following. INTERVENTION: 1) Will add ensure with all meals to encourage adequate po intake. 2) Recommend diet advancement per ST as able. MONITOR/EVALUATE: PO intake, labs, weight, nutrition status. Continue to monitor per moderate nutrition risk.
--- NOTE | 2017-03-11 14:41 | NUR ---
spiritual care: pt request responded to request. not a good time for patient, will plan to follow. Pt islam and attended by caregiver
[2017-03-11] MEDS ORDERED: Levalbuterol 1.25 mg/0.5mL Inhalation Solution NEB PRN (14:50)
[2017-03-11] MEDS ORDERED: guaiFENesin 20 mg/mL 10 mL Syrup PO PRN (14:55)
[2017-03-11] MEDS: LidocaineVisc 2%:Antacid 1:1 10 mL Syringe PO SCH (16:19)
--- NOTE | 2017-03-11 21:05 | PCM.PNMED ---
Subjective Date of Service Mar 11, 2017 Subjective 86 y WF oxygen dependent COPD (chr resp failure), CHF, pulm HTN, Afib, aspiration pneumonia, chronic pain for which she is on roxycodone is here on hosp day#2. Was admitted due wali oncern for aspiration pneumonia (Left Lower lobe). Because she just had an admission 02/23-02/28 for COPD exac she is thought to be ahving HCAP. She is on Zosyn. Pt c/o chest pain over the epigastrium. She denies increased dyspnea, bad taste in her mouth. She does endorse orthopnea. Not been compliant with thin liquids at home per her manager progressive care. Son is not too involved din her care right now as he is dealing with his own health problems. States chest pain has improved after she received oxycodone. Exam Vital Signs Vital Sign - Last Date Time Temp Pulse Resp B/P Pulse Ox O2 Delivery O2 Flow Rate FiO2 03/11/17 04:29 36.6 85 18 94/59 96 Nasal Cannula 2.00 Intake and Output 03/10/17 03/10/17 03/11/17 Cumulative From/Thru 14:59 22:59 06:59 03/08/17 21:44 - 03/11/17 04:52 Intake Total 0 ml 343 ml 124 ml 2095 ml Output Total 350 ml 1250 ml Balance -350 ml 343 ml 124 ml 845 ml Intake Oral 0 ml 260 ml 510 ml IV Total 83 ml 124 ml 1585 ml Output Urine Total 350 ml 1250 ml # Voids 3 3 9 # Bowel Movements 2 6 Exam Constitutional: Elderly woman in no acute distress Head: Normocephalic atraumatic Chest: Crackles at her right and left base Cor: Regular rate and rhythm S1-S2 Abdomen: Soft nontender bowel sounds present Extremities: No pedal edema Neuro: Alert and oriented 3, IVs and Medications Medications Reviewed: Medications were reviewed in detail Lab and Diagnostics Result Diagram: 03/10/1760403/10/17604 Microbiology Blood culture 2 pending. . X-Rays, CTs and MRIs X-RAY CHEST ONE VIEW, PORTABLE IMPRESSION: Changes of left lower lobe infiltrate suspicious for pneumonia. Dictated by: William Fraser M.D. on 03/08/2017 at 22:06 . 12-lead ECG EKG: Atrial fibrillation, heart rate 108, no pathological Q waves or acute ischemic changes such as ST elevation or depression. . Assessment & Plan Jacqueline de leon is an 86-year-old woman with a past medical history significant for atrial fibrillation, CHF, COPD oxygen dependent, and recent right middle lobe pneumonia and COPD exacerbation hospitalized from 02/23/2017- 02/28/2017 who presents to [facility] emergency Department with increasing shortness of breath, worsening cough and pleuritic chest pain. # Acute chest pain -- xopnex. robitussin DM -- GI cocktail x 1 dose -- No ST elev on EKG -- No tele events -- Troponin is ordered and negative, no morphine due to low BP # Acute left lower lobe hospital-acquired pneumonia with possible aspiration pneumonia, present on admission. Active. - Patient presented with shortness of breath, pleuritic chest pain, worsening cough and mild leukocytosis. Recently hospitalized from 02/23/2017-02/28/2017. - Chest x-ray demonstrated left lower lobe infiltrate consistent with pneumonia , as above (reviewed by admitting team). - Lactic acid normal at 1.2. Pro-calcitonin normal at 0.03. MRSA screen is negative. - blood cultures 2 showed NGTD, sputum Gram stain and culture showed normal betzy, strep pneumoniae and legionella urine antigens negative. Respiratory PCR was negative - Tylenol as needed for fever and pain. - Patient received Zosyn IV 3.375 g 1, levofloxacin IV 750 mg 1 and vancomycin with dosing per pharmacy in the ED. Continued Zosyn, levofloxacin - Ordered Atrovent as needed for shortness of breath. - Speech evaluation was ordered to assess the patient for silent aspiration as her pneumonia is recurring. They put patient on nectar thickened liquids and mechanical soft diet - Continue supplemental oxygen titrate up as needed. Patient is on 2 L at rest and 3 L with ambulation at baseline. - Tessalon Perles 100 mg 3 times a day as needed for cough. Robitussin-DM - On 03/09, Levaquin was DC'd as she did have some QT prolongation on telemetry Chronic problems: # Chronic atrial fibrillation, present on admission. Stable. - Continue metoprolol 25 mg twice a day and Plavix 75 mg daily. - Per Dr. Roque, digoxin was added to her regimen as blood pressure is not high enough for increase in metoprolol # Hyperlipidemia, presently on admission. Stable. - Continue atorvastatin 40 mg daily at bedtime. # Peptic ulcer disease, present on admission. Presumed stable. - Continue Protonix 40 mg daily and H2 antony twice daily. # Seizures on Depakote, present on admission. - Continue Depakote 500 mg twice a day. # Pulmonary hypertension with possible cor pulmonale, present on admission. Presumed stable. - Continue furosemide 20 mg twice a day. - Continue potassium chloride 10 mEq daily. - Continue supplemental oxygen titrate up as needed. Patient is on 2 L at rest and 3 L with ambulation at baseline. # Chronic respiratory failure with hypoxia,on chronic O2,POA -Contnue supplemental O2 -Most likely secondary to pulmonary hypertension, COPD and HFpEF # Chronic HFpEF, present on admission -Continue her current medications of Lasix and metoprolol. #Insomnia, present on admission. Stable. - Mirtazapine 45 mg daily at bedtime as needed for insomnia. #Depression, present on admission. Stable. - Continue fluoxetine 40 mg daily. PRN antiemetics: Zofran and Maalox. PRN bowel regimen: Senna and MiraLAX. PRN analgesics: Tylenol and oxycodone 5 mg Q4H PRN pain. Patient is admitted under inpatient status with expected length of stay greater than 2 midnights due to severity of presenting symptoms, risk of adverse event, and complexity of treatment plan. . Pain Evaluation: Adequate Pain Control VTE Prophylaxis: Sub-Q Heparin (Unfractionated) VTE Mechanical Devices: Intermittant Pneumatic CD Resuscitation Status: DNR/DNI:Do Not Resuscitate/Intubate Time spent 25 min Elizabeth Stafford DO Mar 11, 2017 05:21
[2017-03-12] VITALS (12 sets, daily range): BP systolic 83–103; BP diastolic 52–70; PULSE 69–110; RESP 16–18; O2SAT 93–98
[2017-03-12] MEDS: Piperacillin-Tazo 3.375 Gm Inj 3.375 GM in Dextrose 5% Minibag Plus 50 ML IV SCH ×3 (00:36→16:38)
--- NOTE | 2017-03-12 04:48 | NUR ---
Chest vs. Rib Pain Pt c/o chest pain. Upon further discussion, pain originates deep into lower ribs and increases with expansion of ribcage during deep breaths and coughing - rib/lung pain, not chest pain. Roxicodone effective in relieving rib pain. Will continue to monitor
[2017-03-12 06:19] LABS: BASOPHILS % (AUTO) 0.1 % (0-3); EOSINOPHILS % (AUTO) 2.7 % (0-5); Mean Corpuscular Hemoglobin 28.4 pg (27.0-35.0); Mean Corpuscular Volume 89.9 fL (81-100); NEUTROPHILS % (AUTO) 64.9 % (40-74); Platelet Count 332 bil/L (150-400)
[2017-03-12] MEDS: Pantoprazole 40 mg ER24 Tablet PO SCH (07:37)
[2017-03-12] MEDS ORDERED: 0.9% Sodium Chloride 500 ML IV ONE ×2 (11:20→23:25)
--- NOTE | 2017-03-12 11:26 | NUR ---
Social Work-continued d/c planning: Data:EMR reviewed. Pt is on day 3 of hospitalization for healthcare associated pneumonia per H&P. Pt is not medically stable anticipate several more dys. Pt resides at home alone. Pt has caregivers 5 days a week and is currently open with [facility] for RN,PT, OT,ST, and [facility] [employer]. Pt also uses home O2. SW will continue to follow. Assessment:Pt who has caregivers and HH. Plan:Pt to discharge home when medically stable. Pt is open with [facility] for RN,PT, OT,ST, and [facility] [employer], resume orders needed at discharge. Pt also has caregivers. SW will continue to follow. ALDO Blanton
--- NOTE | 2017-03-12 11:49 | NUR ---
Hypotension 0700 BP 102/64, BP meds administered, 1015 BP 83/55. Md made aware, 500cc NS bolus ordered w/ 100cc/hr NS for maintenance. Patient taking in very little orally. Bolus currently infusing, continuing to monitor. Asymptomatic when standing, no c/o dizziness. Plan to obtain an ortho set.
[2017-03-12] MEDS: 0.9% Sodium Chloride 1,000 ML IV SCH ×2 (12:13→22:45)
--- NOTE | 2017-03-12 15:58 | NUR ---
Evaluation completed. Please go to "Notes" then click on "Assessments and Notes" (bottom left corner of screen). Then select appropriate discipline tab on top of screen.
--- NOTE | 2017-03-12 16:11 | NUR ---
Request for Thursday Discharge Patient has Thu-Thu @ home caregiver, anticipated d/c Thursday or Thursday, caregiver request for patient to stay until Thursday d/t no caregiving services or family availability over the weekend, patient would be home alone. Patients son is having major surgery today or tomorrow, family will be tied up & unable to care for patient. Passed on to ORACLE ENGINEER.
--- NOTE | 2017-03-12 22:17 | PCM.PNMED ---
Subjective Date of Service Mar 12, 2017 Subjective Patient is endorsing chest pain with cough. She was hypotensive this am. Patient is expressing sadness over her son's recent diagnosis of kidney cancer. She has no other concerns Exam Vital Signs Vital Sign - Last Date Time Temp Pulse Resp B/P Pulse Ox O2 Delivery O2 Flow Rate FiO2 03/12/17 10:48 72 03/12/17 10:16 83/55 03/12/17 08:42 37.0 18 94 Nasal Cannula 1.00 Intake and Output 03/11/17 03/11/17 03/12/17 Cumulative From/Thru 15:00 23:00 07:00 03/08/17 21:44 - 03/12/17 06:29 Intake Total 320 ml 297 ml 2712 ml Output Total 550 ml 200 ml 2300 ml Balance -230 ml 97 ml 412 ml Intake Oral 320 ml 100 ml 930 ml IV Total 197 ml 1782 ml Output Urine Total 550 ml 200 ml 2300 ml # Voids 4 2 16 # Bowel Movements 2 1 10 Exam Constitutional: Elderly woman in no acute distress Head: Normocephalic atraumatic Lungs: Crackles at her right and left base Heart: Regular rate and rhythm S1-S2 Abdomen: Soft nontender bowel sounds present Extremities: No pedal edema Neuro: Alert and oriented 3, IVs and Medications IV Fluids 100 mL per hour normal saline Medications Reviewed: Medications were reviewed in detail Lab and Diagnostics Result Diagram: 03/12/1760203/12/17602 Microbiology Blood culture 2 pending. . X-Rays, CTs and MRIs X-RAY CHEST ONE VIEW, PORTABLE IMPRESSION: Changes of left lower lobe infiltrate suspicious for pneumonia. Dictated by: William Fraser M.D. on 03/08/2017 at 22:06 . 12-lead ECG EKG: Atrial fibrillation, heart rate 108, no pathological Q waves or acute ischemic changes such as ST elevation or depression. . Assessment & Plan Jacqueline de leon is an 86-year-old woman with a past medical history significant for atrial fibrillation, CHF, COPD oxygen dependent, and recent right middle lobe pneumonia and COPD exacerbation hospitalized from 02/23/2017- 02/28/[address] [facility] emergency Department with increasing shortness of breath, worsening cough and pleuritic chest pain. #Hypertension, acute active -- She was noted to be hypotensive by her nurse this a.m. 500 mL fluid bolus + 100 mL per hour fluids given -- d/c Pain medications, decrease metoprolol to 12.5 mg by mouth twice a day, hold furosemide. -- Continue to monitor, she is asymptomatic. # Acute left lower lobe hospital-acquired pneumonia with possible aspiration pneumonia, present on admission. Active. - Patient presented with shortness of breath, pleuritic chest pain, worsening cough and mild leukocytosis. Recently hospitalized from 02/23/2017-02/28/2017. - Chest x-ray demonstrated left lower lobe infiltrate consistent with pneumonia , as above (reviewed by admitting team). - Lactic acid normal at 1.2. Pro-calcitonin normal at 0.03. MRSA screen is negative. - blood cultures 2 showed NGTD, sputum Gram stain and culture showed normal betzy, strep pneumoniae and legionella urine antigens negative. Respiratory PCR was negative - Tylenol as needed for fever and pain. - Patient received Zosyn IV 3.375 g 1, levofloxacin IV 750 mg 1 and vancomycin with dosing per pharmacy in the ED. Continued Zosyn, levofloxacin - Ordered Atrovent as needed for shortness of breath. - Speech evaluation was ordered to assess the patient for silent aspiration as her pneumonia is recurring. They put patient on nectar thickened liquids and mechanical soft diet - Continue supplemental oxygen titrate up as needed. Patient is on 2 L at rest and 3 L with ambulation at baseline. - Tessalon Perles 100 mg 3 times a day as needed for cough. Robitussin-DM - On 03/09, Levaquin was DC'd as she did have some QT prolongation on telemetry -- PTOT consult : "anticipate discharge home with HH PT once medically stable. Pt reports that over the weekend her caregiver is not availalbe and she has no family support within the home. Recommend caregiver is able to be available prior to discharge as pt requires CGA for ambulation at this time. PT to progress as pt tolerates." # Acute chest pain improved -- xopnex. robitussin DM -- GI cocktail x 1 dose -- No ST elev on EKG -- No tele events -- Troponin is ordered and negative, no morphine due to low BP Chronic problems: # Chronic atrial fibrillation, present on admission. Stable. - Continue metoprolol 25 mg twice a day and Plavix 75 mg daily. - Per Dr. Roque, digoxin was added to her regimen as blood pressure is not high enough for increase in metoprolol # Hyperlipidemia, presently on admission. Stable. - Continue atorvastatin 40 mg daily at bedtime. # Peptic ulcer disease, present on admission. Presumed stable. - Continue Protonix 40 mg daily and H2 antony twice daily. # Seizures on Depakote, present on admission. - Continue Depakote 500 mg twice a day. # Pulmonary hypertension with possible cor pulmonale, present on admission. Presumed stable. - hOld furosemide 20 mg twice a day. - Continue potassium chloride 10 mEq daily. - Continue supplemental oxygen titrate up as needed. Patient is on 2 L at rest and 3 L with ambulation at baseline. # Chronic respiratory failure with hypoxia,on chronic O2,POA -Contnue supplemental O2 -Most likely secondary to pulmonary hypertension, COPD and HFpEF # Chronic HFpEF, present on admission -Continue her current medications of Lasix and metoprolol ( dose altered as above). #Insomnia, present on admission. Stable. - Mirtazapine 45 mg daily at bedtime as needed for insomnia. #Depression, present on admission. Stable. - Continue fluoxetine 40 mg daily. PRN antiemetics: Zofran and Maalox. PRN bowel regimen: Senna and MiraLAX. PRN analgesics: Tylenol and oxycodone 5 mg Q4H PRN pain. Patient is admitted under inpatient status with expected length of stay greater than 2 midnights due to severity of presenting symptoms, risk of adverse event, and complexity of treatment plan. . Pain Evaluation: Adequate Pain Control VTE Prophylaxis: Sub-Q Heparin (Unfractionated) VTE Mechanical Devices: Intermittant Pneumatic CD Resuscitation Status: DNR/DNI:Do Not Resuscitate/Intubate Time spent 25 minutes Elizabeth Stafford DO Mar 12, 2017 11:27
[2017-03-13] VITALS (14 sets, daily range): BP systolic 93–123; BP diastolic 50–75; PULSE 69–108; RESP 16–23; O2SAT 89–97
[2017-03-13] MEDS: Piperacillin-Tazo 3.375 Gm Inj 3.375 GM in Dextrose 5% Minibag Plus 50 ML IV SCH ×3 (00:55→18:35)
[2017-03-13] MEDS ORDERED: 0.9% Sodium Chloride 500 ML IV ONE (01:00)
--- NOTE | 2017-03-13 02:57 | NUR ---
BP/ HOTN Patient A&OX3 and pleasant this evening. Complains of 7-8/10 upper chest pain from persistent coughing. Increased pain experienced when taking deep breaths as well. 975 Tylenol PO and Tessalon gurinder given. Upon reassessment patient states no change in pain, and has refused robitussion. BP 88/60. Night hospitalist notified and ordered a 500cc NS bolus, and to reassess BP after completed. Upon reassessment BP was 94/61. MD notified and ordered a second bolus as well as 5mg oxycodone for pain. Upon further reassessment patient rates pain 7/10, but states some relief was provided, and BP was 99/65. Lung sounds assessed during fluid boluses, and no change has been noted at this time. 2Lo2 via NC worn, and FLUMER applied. O2 sats > 92%. Tele monitor reports, Afib in the 80's. Bed locked/low position and [place] alarm is on. Will continue to monitor and continue Q1 hour checks.
[2017-03-13] MEDS: 0.9% Sodium Chloride 1,000 ML IV SCH (07:20)
[2017-03-13 07:24] LABS: BASOPHILS % (AUTO) 0.5 % (0-3); EOSINOPHILS % (AUTO) 4.2 % (0-5); MONOCYTES % (AUTO) 9.6 % (4-12); Mean Corpuscular Hemoglobin 27.8 pg (27.0-35.0); Mean Corpuscular Volume 92.1 fL (81-100); Platelet Count 275 bil/L (150-400)
[2017-03-13] MEDS: Pantoprazole 40 mg ER24 Tablet PO SCH (09:31)
--- NOTE | 2017-03-13 18:24 | NUR ---
Pain and Cardiac Continues to have c/o chest pain secondary to cough. Refuses to take Tessalon pearls or APAP. States they "don't work!" BP continue to be slightly hypotensive but per patient this is baseline. Per oscillograph technician patient has been in Afib entire shift.
--- NOTE | 2017-03-13 23:41 | PCM.PNMED ---
Subjective Date of Service Mar 13, 2017 Subjective Patient states that she has had chest pain with coughing again. Blood pressures are improving after furosemide was held last night. She asks for one more visit pain medication last night and seemed oxycodone. Telemonitoring tech reports atrial fibrillation with increased heart rate this a.m. Exam Vital Signs Vital Sign - Last Date Time Temp Pulse Resp B/P Pulse Ox O2 Delivery O2 Flow Rate FiO2 03/13/17 19:30 37.3 75 23 111/63 89 Nasal Cannula 1.50 Intake and Output 03/12/17 03/12/17 03/13/17 Cumulative From/Thru 15:00 23:00 07:00 03/08/17 21:44 - 03/13/17 06:50 Intake Total 1360 ml 2020 ml 6092 ml Output Total 650 ml 250 ml 3200 ml Balance 710 ml 1770 ml 2892 ml Intake Oral 360 ml 250 ml 1540 ml IV Total 1000 ml 1770 ml 4552 ml Output Urine Total 650 ml 250 ml 3200 ml # Voids 3 19 # Bowel Movements 1 1 12 Exam Constitutional: Elderly woman in no acute distress Head: Normocephalic atraumatic Lungs: Improved lungs sound Heart: Regular rate and rhythm S1-S2 Abdomen: Soft nontender bowel sounds present Extremities: No pedal edema Neuro: Alert and oriented 3, Lab and Diagnostics Result Diagram: 03/13/1763503/13/17635 Microbiology Blood culture 2 pending. . X-Rays, CTs and MRIs X-RAY CHEST ONE VIEW, PORTABLE IMPRESSION: Changes of left lower lobe infiltrate suspicious for pneumonia. Dictated by: William Fraser M.D. on 03/08/2017 at 22:06 . 12-lead ECG EKG: Atrial fibrillation, heart rate 108, no pathological Q waves or acute ischemic changes such as ST elevation or depression. . Assessment & Plan Jacqueline de leon is an 86-year-old woman with a past medical history significant for atrial fibrillation, CHF, COPD oxygen dependent, and recent right middle lobe pneumonia and COPD exacerbation hospitalized from 02/23/2017- 02/28/2017 who presents to [facility] emergency Department with increasing shortness of breath, worsening cough and pleuritic chest pain. # Acute left lower lobe hospital-acquired pneumonia with possible aspiration pneumonia, present on admission. Active. - Patient presented with shortness of breath, pleuritic chest pain, worsening cough and mild leukocytosis. Recently hospitalized from 02/23/2017-02/28/2017. - Chest x-ray demonstrated left lower lobe infiltrate consistent with pneumonia , as above (reviewed by admitting team). - Lactic acid normal at 1.2. Pro-calcitonin normal at 0.03. MRSA screen is negative. - blood cultures 2 showed NGTD, sputum Gram stain and culture showed normal betzy, strep pneumoniae and legionella urine antigens negative. Respiratory PCR was negative - Tylenol as needed for fever and pain. - Patient received Zosyn IV 3.375 g 1, levofloxacin IV 750 mg 1 and vancomycin with dosing per pharmacy in the ED. Continued Zosyn, levofloxacin - Ordered Atrovent as needed for shortness of breath. - Speech evaluation was ordered to assess the patient for silent aspiration as her pneumonia is recurring. They put patient on nectar thickened liquids and mechanical soft diet - Continue supplemental oxygen titrate up as needed. Patient is on 2 L at rest and 3 L with ambulation at baseline. - Tessalon Perles 100 mg 3 times a day as needed for cough. Robitussin-DM - On 03/09, Levaquin was DC'd as she did have some QT prolongation on telemetry -- PTOT consult : "anticipate discharge home with HH PT once medically stable. Pt reports that over the weekend her caregiver is not availalbe and she has no family support within the home. Recommend caregiver is able to be available prior to discharge as pt requires CGA for ambulation at this time. PT to progress as pt tolerates." # Acute chest pain improved -- xopnex. andreinaitussin DM -- GI cocktail x 1 dose -- No ST elev on EKG -- Troponin is ordered and negative, no morphine due to low BP #Hypotension, acute 03/12 resolved on 03/13 -- She was noted to be hypotensive by her nurse this a.m. 500 mL fluid bolus + 100 mL per hour fluids given -- d/c Pain medications, decrease metoprolol to 12.5 mg by mouth twice a day, hold furosemide. -- Continue to monitor, she is asymptomatic. -- Blood pressures have improved upon discontinuation of pain medications from before. oxycodone 2.5 mg by mouth twice a day when necessary Chronic problems: # Chronic atrial fibrillation, present on admission. worsened -Continue Plavix 75 mg daily. - Per Dr. Roque, digoxin was added to her regimen as blood pressure is not high enough for increase in metoprolol -Metoprolol 25 mg twice a day -Because of poorly-controlled atrial fibrillation this a.m. patient is asked to stay in the hospital # Hyperlipidemia, presently on admission. Stable. - Continue atorvastatin 40 mg daily at bedtime. # Peptic ulcer disease, present on admission. Presumed stable. - Continue Protonix 40 mg daily and H2 antony twice daily. # Seizures on Depakote, present on admission. - Continue Depakote 500 mg twice a day. # Pulmonary hypertension with possible cor pulmonale, present on admission. Presumed stable. - hold furosemide 20 mg twice a day. - Continue potassium chloride 10 mEq daily. - Continue supplemental oxygen titrate up as needed. Patient is on 2 L at rest and 3 L with ambulation at baseline. # Chronic respiratory failure with hypoxia,on chronic O2,POA -Contnue supplemental O2 -Most likely secondary to pulmonary hypertension, COPD and HFpEF # Chronic HFpEF, present on admission -Continue her current medications of Lasix and metoprolol ( dose altered as above). #Insomnia, present on admission. Stable. - Mirtazapine 45 mg daily at bedtime as needed for insomnia. #Depression, present on admission. Stable. - Continue fluoxetine 40 mg daily. PRN antiemetics: Zofran and Maalox. PRN bowel regimen: Senna and MiraLAX. PRN analgesics: Tylenol and oxycodone 5 mg Q4H PRN pain. Patient is admitted under inpatient status with expected length of stay greater than 2 midnights due to severity of presenting symptoms, risk of adverse event, and complexity of treatment plan. Disposition: Patient states she cannot go home without her caregiver and the weekend. The physical therapy recommends that patient be discharged home when the caregiver can be present. Patient may have to stay until until Thursday . Pain Evaluation: Pain not Controlled VTE Prophylaxis: Sub-Q Heparin (Unfractionated) VTE Mechanical Devices: Venous Foot Pump Resuscitation Status: DNR/DNI:Do Not Resuscitate/Intubate Time spent 24 minutes Elizabeth Stafford DO Mar 13, 2017 22:37
[2017-03-14] VITALS (9 sets, daily range): BP systolic 97–117; BP diastolic 62–72; PULSE 63–81; RESP 16–19; O2SAT 92–98
[2017-03-14] MEDS: Piperacillin-Tazo 3.375 Gm Inj 3.375 GM in Dextrose 5% Minibag Plus 50 ML IV SCH ×3 (00:24→17:00)
--- NOTE | 2017-03-14 05:06 | NUR ---
NOC/Acitivity Pt reports of having pain on her chest while coughing. Reports of feeling sore on her right midclavicular area of the chest. Administered Oxycodone 2.5mg. It has been effective as pt has no further complains. IV ABx and HS meds administered as scheduled. VSS and has been afebrile. Intentional hourly rounding done. Continuing to monitor.
[2017-03-14] MEDS ORDERED: LAN125 PO (09:10)
[2017-03-14] MEDS: Pantoprazole 40 mg ER24 Tablet PO SCH (09:14)
--- NOTE | 2017-03-14 14:27 | NUR ---
Physical Therapy: Patient has met all PT goals and will be released to nursing for continued ambulation 2-3 times per day as tolerated. Pt tolerating up to 150 feet with FWW and SBA at this time. Recommend pt sit up in chair for all meals.
[2017-03-14] MEDS ORDERED: 0.9% Sodium Chloride 250 ML ONE (15:26)
--- NOTE | 2017-03-14 16:14 | PCM.PNMED ---
Subjective Date of Service Mar 14, 2017 Subjective Patient continues to do well, just waiting for her caregiver to be present when she goes home. States she is feeling better, agreed that she only gets pain meds rarely at home and she probably should not be requesting them at night. No other concerns Exam Vital Signs Vital Sign - Last Date Time Temp Pulse Resp B/P Pulse Ox O2 Delivery O2 Flow Rate FiO2 03/14/17 15:21 71 16 94 Nasal Cannula 1.50 03/14/17 13:18 36.9 97/62 Intake and Output 03/13/17 03/13/17 03/14/17 Cumulative From/Thru 15:00 23:00 07:00 03/08/17 21:44 - 03/14/17 06:05 Intake Total 1310 ml 570 ml 7972 ml Output Total 200 ml 100 ml 3500 ml Balance 1110 ml 470 ml 4472 ml Intake Oral 1310 ml 350 ml 3200 ml IV Total 220 ml 4772 ml Output Urine Total 200 ml 100 ml 3500 ml # Voids 4 23 # Bowel Movements 1 1 14 Exam Constitutional: Elderly woman in no acute distress Head: Normocephalic atraumatic Lungs: Improved lungs sound Heart: Regular rate and rhythm S1-S2 Abdomen: Soft nontender bowel sounds present Extremities: No pedal edema Neuro: Alert and oriented 3, IVs and Medications Medications Reviewed: Medications were reviewed in detail Lab and Diagnostics Result Diagram: 03/13/1763503/13/17635 Microbiology Blood culture 2 pending. . X-Rays, CTs and MRIs X-RAY CHEST ONE VIEW, PORTABLE IMPRESSION: Changes of left lower lobe infiltrate suspicious for pneumonia. Dictated by: William Fraser M.D. on 03/08/2017 at 22:06 . 12-lead ECG EKG: Atrial fibrillation, heart rate 108, no pathological Q waves or acute ischemic changes such as ST elevation or depression. . Assessment & Plan Jacqueline de leon is an 86-year-old woman with a past medical history significant for atrial fibrillation, CHF, COPD oxygen dependent, and recent right middle lobe pneumonia and COPD exacerbation hospitalized from 02/23/2017- 02/28/2017 who presents to [facility] emergency Department with increasing shortness of breath, worsening cough and pleuritic chest pain. # Acute left lower lobe hospital-acquired pneumonia with possible aspiration pneumonia, present on admission. Active. - Patient presented with shortness of breath, pleuritic chest pain, worsening cough and mild leukocytosis. Recently hospitalized from 02/23/2017-02/28/2017. - Chest x-ray demonstrated left lower lobe infiltrate consistent with pneumonia , as above (reviewed by admitting team). - Lactic acid normal at 1.2. Pro-calcitonin normal at 0.03. MRSA screen is negative. - blood cultures 2 showed NGTD, sputum Gram stain and culture showed normal betzy, strep pneumoniae and legionella urine antigens negative. Respiratory PCR was negative - Tylenol as needed for fever and pain. - Patient received Zosyn IV 3.375 g 1, levofloxacin IV 750 mg 1 and vancomycin with dosing per pharmacy in the ED. Continued Zosyn, levofloxacin - Ordered Atrovent as needed for shortness of breath. - Speech evaluation was ordered to assess the patient for silent aspiration as her pneumonia is recurring. They put patient on nectar thickened liquids and mechanical soft diet - Continue supplemental oxygen titrate up as needed. Patient is on 2 L at rest and 3 L with ambulation at baseline. - Tessalon Perles 100 mg 3 times a day as needed for cough. Robitussin-DM - On 03/09, Levaquin was DC'd as she did have some QT prolongation on telemetry -- PTOT consult : "anticipate discharge home with HH PT once medically stable. Pt reports that over the weekend her caregiver is not availalbe and she has no family support within the home. Recommend caregiver is able to be available prior to discharge as pt requires CGA for ambulation at this time. PT to progress as pt tolerates." -- Discontinues Zosyn, started PO augmentin # Acute chest pain improved -- xopnex. robitussin DM -- GI cocktail x 1 dose -- No ST elev on EKG -- Troponin is ordered and negative, no morphine due to low BP #Hypotension, acute 03/12 resolved on 03/13 -- She was noted to be hypotensive by her nurse this a.m. 500 mL fluid bolus + 100 mL per hour fluids given -- d/c Pain medications, decrease metoprolol to 12.5 mg by mouth twice a day, hold furosemide. -- Continue to monitor, she is asymptomatic. -- Blood pressures have improved upon discontinuation of pain medications from before. oxycodone 2.5 mg by mouth twice a day when necessary Chronic problems: # Chronic atrial fibrillation, present on admission. worsened -Continue Plavix 75 mg daily. - Per Dr. Roque, digoxin was added to her regimen as blood pressure is not high enough for increase in metoprolol -Metoprolol 25 mg twice a day -Because of poorly-controlled atrial fibrillation this a.m. patient is asked to stay in the hospital # Hyperlipidemia, presently on admission. Stable. - Continue atorvastatin 40 mg daily at bedtime. # Peptic ulcer disease, present on admission. Presumed stable. - Continue Protonix 40 mg daily and H2 antony twice daily. # Seizures on Depakote, present on admission. - Continue Depakote 500 mg twice a day. # Pulmonary hypertension with possible cor pulmonale, present on admission. Presumed stable. - hold furosemide 20 mg twice a day. - Continue potassium chloride 10 mEq daily. - Continue supplemental oxygen titrate up as needed. Patient is on 2 L at rest and 3 L with ambulation at baseline. # Chronic respiratory failure with hypoxia,on chronic O2,POA -Contnue supplemental O2 -Most likely secondary to pulmonary hypertension, COPD and HFpEF # Chronic HFpEF, present on admission -Continue her current medications of Lasix and metoprolol ( dose altered as above). #Insomnia, present on admission. Stable. - Mirtazapine 45 mg daily at bedtime as needed for insomnia. #Depression, present on admission. Stable. - Continue fluoxetine 40 mg daily. #Chronic pain active -- tramadol 50 mg QD PRN, in stead of oxycodon 2.5 mg BID PRN PRN antiemetics: Zofran and Maalox. PRN bowel regimen: Senna and MiraLAX. PRN analgesics: Tylenol and tramadol QD PRN pain. Patient is admitted under inpatient status with expected length of stay greater than 2 midnights due to severity of presenting symptoms, risk of adverse event, and complexity of treatment plan. Disposition: Patient states she cannot go home without her caregiver and the weekend. The physical therapy recommends that patient be discharged home when the caregiver can be present. Patient may have to stay until until Thursday . Pain Evaluation: Pain not Controlled VTE Prophylaxis: Sub-Q Heparin (Unfractionated) VTE Mechanical Devices: Venous Foot Pump Resuscitation Status: DNR/DNI:Do Not Resuscitate/Intubate Time spent 25 min Elizabeth Stafford DO Mar 14, 2017 16:14
--- NOTE | 2017-03-14 18:18 | NUR ---
Activity/px Pt has been using BSC, refusing offer to amb in room or sit in chair at bedside for meals. Pt continues to c/o discomfort in chest due to coughing. Enc pt to splint chest with a pillow. Refused offer for cough medication, did accept PRN analgesic. Bed in lowest, locked position and call light in reach.
[2017-03-15 00:30] VITALS: BP 103/72; RESP 19; O2SAT 92
[2017-03-15] MEDS: LidocaineVisc 2%:Antacid 1:1 10 mL Syringe PO SCH (00:49)
[2017-03-15 04:37] VITALS: BP 95/61; PULSE 60; RESP 18; O2SAT 100
--- NOTE | 2017-03-15 05:00 | NUR ---
Abd/Chest Pain Pt had an episode of abdominal pain radiating to her right midclavicular area. Pt states tramadol is ineffective and pain exacerbates when due to severe coughing. 12 lead EKG ordered by MD to r/o cardiac symtoms. Noted no significant changes from previous EKG. GI cocktail administered and tessalon perles for cough control. Pt felt relief and denies anymore pain. Pt's VSS and WNL. HS meds administered as scheduled. Continuing to monitor.
[2017-03-15 08:40] VITALS: PULSE 68; RESP 18; O2SAT 97
[2017-03-15] MEDS: Pantoprazole 40 mg ER24 Tablet PO SCH (08:54)
[2017-03-15] MEDS: Amoxicillin-Clav 500-125 mg Tablet PO SCH ×3 (08:58→17:16)
[2017-03-15 13:57] VITALS: BP 89/56; PULSE 77; RESP 18; O2SAT 99
--- NOTE | 2017-03-15 18:09 | NUR ---
Activity/pain Pt using BSC, continues to refuse offer to amb in BR or sit in chair at bedside. Denies any CP/discomfort this shift thus far. Pt did c/o throat pain from coughing at beginning of shift, PRN analgesic given with effective results. Pt refused offer for cough medicine. Bed in lowest, locked position and call light in reach.
[2017-03-15 20:00] VITALS: PULSE 93; RESP 18; O2SAT 98
--- NOTE | 2017-03-15 20:37 | PCM.PNMED ---
Subjective Date of Service Mar 15, 2017 Subjective Patient is seen and examined. She has no new concerns Exam Vital Signs Vital Sign - Last Date Time Temp Pulse Resp B/P Pulse Ox O2 Delivery O2 Flow Rate FiO2 03/15/17 13:57 36.9 77 18 89/56 99 Nasal Cannula 1.50 Intake and Output 03/14/17 03/14/17 03/15/17 Cumulative From/Thru 15:00 23:00 07:00 03/08/17 21:44 - 03/15/17 06:05 Intake Total 220 ml 496 ml 8688 ml Output Total 200 ml 3700 ml Balance 20 ml 496 ml 4988 ml Intake Oral 220 ml 240 ml 3660 ml IV Total 256 ml 5028 ml Output Urine Total 200 ml 3700 ml # Voids 6 2 31 # Bowel Movements 2 16 Lab and Diagnostics Result Diagram: 03/13/17 0636 03/13/17 0636 Microbiology Blood culture 2 pending. . X-Rays, CTs and MRIs X-RAY CHEST ONE VIEW, PORTABLE IMPRESSION: Changes of left lower lobe infiltrate suspicious for pneumonia. Dictated by: William Fraser M.D. on 03/08/2017 at 22:06 . 12-lead ECG EKG: Atrial fibrillation, heart rate 108, no pathological Q waves or acute ischemic changes such as ST elevation or depression. . Assessment & Plan Jacqueline de leon is an 86-year-old woman with a past medical history significant for atrial fibrillation, CHF, COPD oxygen dependent, and recent right middle lobe pneumonia and COPD exacerbation hospitalized from 02/23/2017- 02/28/2017 who presents to [facility] emergency Department with increasing shortness of breath, worsening cough and pleuritic chest pain. # Acute left lower lobe hospital-acquired pneumonia with possible aspiration pneumonia, present on admission. Active. - Patient presented with shortness of breath, pleuritic chest pain, worsening cough and mild leukocytosis. Recently hospitalized from 02/23/2017-02/28/2017. - Chest x-ray demonstrated left lower lobe infiltrate consistent with pneumonia , as above (reviewed by admitting team). - Lactic acid normal at 1.2. Pro-calcitonin normal at 0.03. MRSA screen is negative. - blood cultures 2 showed NGTD, sputum Gram stain and culture showed normal betzy, strep pneumoniae and legionella urine antigens negative. Respiratory PCR was negative - Tylenol as needed for fever and pain. - Patient received Zosyn IV 3.375 g 1, levofloxacin IV 750 mg 1 and vancomycin with dosing per pharmacy in the ED. Continued Zosyn, levofloxacin - Ordered Atrovent as needed for shortness of breath. - Speech evaluation was ordered to assess the patient for silent aspiration as her pneumonia is recurring. They put patient on nectar thickened liquids and mechanical soft diet - Continue supplemental oxygen titrate up as needed. Patient is on 2 L at rest and 3 L with ambulation at baseline. - Tessalon Perles 100 mg 3 times a day as needed for cough. Robitussin-DM - On 03/09, Levaquin was DC'd as she did have some QT prolongation on telemetry -- PTOT consult : "anticipate discharge home with PT once medically stable. Pt reports that over the weekend her caregiver is not availalbe and she has no family support within the home. Recommend caregiver is able to be available prior to discharge as pt requires CGA for ambulation at this time. PT to progress as pt tolerates." -- Discontinues Zosyn, started PO augmentin # Acute chest pain improved -- xopnex. robitussin DM -- GI cocktail x 1 dose -- No ST elev on EKG -- Troponin is ordered and negative, no morphine due to low BP #Hypotension, acute 03/12 resolved on 03/13 -- She was noted to be hypotensive by her nurse this a.m. 500 mL fluid bolus + 100 mL per hour fluids given -- d/c Pain medications, decrease metoprolol to 12.5 mg by mouth twice a day, hold furosemide. -- Continue to monitor, she is asymptomatic. -- Blood pressures have improved upon discontinuation of pain medications from before. oxycodone 2.5 mg by mouth twice a day when necessary Chronic problems: # Chronic atrial fibrillation, present on admission. worsened -Continue Plavix 75 mg daily. - Per Dr. Roque, digoxin was added to her regimen as blood pressure is not high enough for increase in metoprolol -Metoprolol 25 mg twice a day -Because of poorly-controlled atrial fibrillation this a.m. patient is asked to stay in the hospital # Hyperlipidemia, presently on admission. Stable. - Continue atorvastatin 40 mg daily at bedtime. # Peptic ulcer disease, present on admission. Presumed stable. - Continue Protonix 40 mg daily and H2 antony twice daily. # Seizures on Depakote, present on admission. - Continue Depakote 500 mg twice a day. # Pulmonary hypertension with possible cor pulmonale, present on admission. Presumed stable. - hold furosemide 20 mg twice a day. - Continue potassium chloride 10 mEq daily. - Continue supplemental oxygen titrate up as needed. Patient is on 2 L at rest and 3 L with ambulation at baseline. # Chronic respiratory failure with hypoxia,on chronic O2,POA -Contnue supplemental O2 -Most likely secondary to pulmonary hypertension, COPD and HFpEF # Chronic HFpEF, present on admission -Continue her current medications of Lasix and metoprolol ( dose altered as above). #Insomnia, present on admission. Stable. - Mirtazapine 45 mg daily at bedtime as needed for insomnia. #Depression, present on admission. Stable. - Continue fluoxetine 40 mg daily. #Chronic pain active -- tramadol 50 mg QD PRN, in stead of oxycodon 2.5 mg BID PRN PRN antiemetics: Zofran and Maalox. PRN bowel regimen: Senna and MiraLAX. PRN analgesics: Tylenol and tramadol QD PRN pain. Patient is admitted under inpatient status with expected length of stay greater than 2 midnights due to severity of presenting symptoms, risk of adverse event, and complexity of treatment plan. Disposition: Patient states she cannot go home without her caregiver and the weekend. The physical therapy recommends that patient be discharged home when the caregiver can be present. Patient has no changes to her medical treatment plan on 03/15. Medically stable. Patient may have to stay until until Thursday as her caregiver has to be present when she gets discharged . Pain Evaluation: Adequate Pain Control VTE Prophylaxis: Sub-Q Heparin (Unfractionated) VTE Mechanical Devices: Venous Foot Pump Resuscitation Status: DNR/DNI:Do Not Resuscitate/Intubate Time spent 25 minutes Elizabeth Stafford DO Mar 15, 2017 20:37
[2017-03-15 20:41] VITALS: BP 99/65; PULSE 81; O2SAT 97
[2017-03-16 04:08] VITALS: BP 91/47; PULSE 91; O2SAT 95
[2017-03-16 04:12] VITALS: BP 99/48; PULSE 93; O2SAT 98
--- NOTE | 2017-03-16 05:19 | NUR ---
NOC Activity pt reports of feeling nauseated. Zofran administered PRN. No complains after. Pt has been on clear liquids since last night. Unable to advance due to pt feeling nauseated. Denies chest pain, sob, or abd discomfort. VSS and has been afebrile. Continuing to monitor.
[2017-03-16] MEDS: Amoxicillin-Clav 500-125 mg Tablet PO SCH ×2 (08:08→12:18)
[2017-03-16] MEDS: Pantoprazole 40 mg ER24 Tablet PO SCH (08:09)
--- NOTE | 2017-03-16 08:29 | NUR ---
Social Work-readiness for discharge: Data:EMR reviewed. Pt is on day 7 of hospitalization for healthcare associated pneumonia per H&P. Pt is likely medically stable later today or tomorrow. PT has seen pt and recommended home with HH services. Pt resides at home alone. Pt has caregivers 5 days a week and is currently open with [facility] for RN,PT, OT,ST, and MICA INSPECTOR. Pt also uses home O2. SW will continue to follow. Assessment:Pt who has caregivers and HH. Plan:Pt to discharge home when medically stable. Pt is open with [facility] for RN,PT, OT,ST, and MICA INSPECTOR, resume orders needed at discharge. Pt also has caregivers. SW will continue to follow. ALDO Blanton
[2017-03-16] MEDS ORDERED: AMOX1TAB11 PO ×2 (10:59→11:05)
--- NOTE | 2017-03-16 11:03 | PCM.DIMED ---
Discharge Instructions Date of Service Mar 16, 2017 Dates of Hospitalization Mar 09, 2017 at 00:17 Discharge Diagnosis Discharge Diagnosis Health Care Acquired Pneumonia, Chronic Afib, COPD, aspiration risk Diet Discharge Diet: Other (mech soft/ nectar thickened) Patient Instructions Patient Instructions Patient is on baseline 2L oxygen Pt/OT Assessment * Pt tearful upon entering room reporting chest pain with coughing and deep breathing. RN aware of chest pain. Pt agreeable to mobilize with PT. She demonstrates SBA bed mobility and transfers. Pt able to ambulate ~150 feet with a decreased gait speed, no LOB noted. She does continue to have increased shuffling with limited foot clearance on the L compared to R with increased fatigue. Pt notes that this is baseline for her and was able to respond to cues to increase step length. At this time, pt is nearing her baseline mobility level. Recommend discharge home once medically stable with HH PT. Recommend pt continue to transfer to chair for meals and walk with nursing staff 2-3 times per day to maintain activity level. No further acute PT indicated at this time. Tolerance to Treatment * Good Current Discharge Recommendations * Home Health PT * Home Discharge Mode of Transportaion * Private Car Follow-up plan Please f/u with PCP in 1-2 weeks Elizabeth Stafford DO Mar 16, 2017 10:56
[2017-03-16 12:20] VITALS: PULSE 73
--- NOTE | 2017-03-16 12:27 | NUR ---
Discharge Reviewed discharge paperwork, care notes and medications with pt and caregiver -disclaimer signed. No IV present, all belongings with pt. Pt denies pain and SOB. On 2L O2 as home dose, using self O2 container for transport. Pt leaving out of unit on WC, inspector health care facilities Kolby Burton driving pt home.
--- NOTE | 2017-03-16 12:28 | NUR ---
Social Work- discharge: Data:EMR reviewed. Pt is on day 7 of hospitalization for healthcare associated pneumonia per H&P. Pt is medically stable for discharge. PT has seen pt and recommended home with HH services. Pt resides at home alone. Pt has caregivers 5 days a week and is currently open with [facility] for RN,PT, OT,ST, and HOSPICE PHYSICIAN. SW updated Talha with [facility] for discharge and provided him with Resume Orders. Pt also uses home O2. SW confirmed plan and caregiver to provide transport home. All updated and agreeable to plan. Assessment:Pt who has caregivers and HH. Plan:Pt to discharge home today via POV. Resume orders provided to [facility] for RN,PT,OT,ST, and HOSPICE PHYSICIAN. Pt has caregivers 5 days a week and caregiver to provide transport home today. All updated and agreeable to plan. ALDO Blanton
--- NOTE | 2017-03-16 23:29 | PCM.DC.MED ---
Discharge Summary Date of Service Mar 16, 2017 Dates of Hospitalization Date of Hospital Admission Mar 09, 2017 at 00:17 Date of Discharge: Mar 16, 2017 Providers: Admitting Physician: Cindy Casas DO Primary Care Physician: Karen Ross MD Attending Physician: Elizabeth Us DO Diagnosis at Time of Discharge Diagnosis at Time of Discharge Health Care Acquired Pneumonia, Chronic Afib, COPD, aspiration risk Consultations none Procedures XRay, CTs & MRIs X-RAY CHEST ONE VIEW, PORTABLE IMPRESSION: Changes of left lower lobe infiltrate suspicious for pneumonia. Dictated by: William Fraser M.D. on 03/08/2017 at 22:06 . ECG 12 Lead EKG: Atrial fibrillation, heart rate 108, no pathological Q waves or acute ischemic changes such as ST elevation or depression. . Brief History Jacqueline de leon is an 86-year-old woman with a past medical history significant for atrial fibrillation, CHF, COPD oxygen dependent, and recent right middle lobe pneumonia and COPD exacerbation hospitalized from 02/23/2017- 02/28/2017 who presents to [facility] emergency Department with increasing shortness of breath, worsening cough and pleuritic chest pain. She has been taking her prednisone and antibiotics as prescribed. She had been feeling better until this morning when she had worsening shortness of breath in which she had to increase her oxygen from 2 L to 4 L. She also reports worsening cough and pleuritic chest pain over the last several days. Her chest pain is midsternal without radiation she has pain upon deep inspiration. She did have one episode of dizziness when getting up to walk to the ambulance. She is not experiencing any headache, vision changes, sore throat, nausea, vomiting, abdominal pain, dysuria, or constipation. She does endorse diarrhea for approximately a week since starting antibiotics and chronic rhinitis associated with oxygen use. She has no other complaints. She has had a poor appetite at home but has been trying to drink plenty of fluids including nectar shakes and water. Vital signs in the ER: Temperature 36.6. Pulse 1:15. Respiratory rate 22. Blood pressure 125/64. Pulse ox 97% on 3 L nasal cannula. She was given 500 mL of NS 1, Zosyn IV 3.375 g 1, levofloxacin IV 750 mg 1, and vancomycin IV 1000 mg 1. PCP is Dr. Ross. . Hospital Course Jacqueline de leon is an 86-year-old woman with a past medical history significant for atrial fibrillation, CHF, COPD oxygen dependent, and recent right middle lobe pneumonia and COPD exacerbation hospitalized from 02/23/2017- 02/28/2017 who presents to [facility] emergency Department with increasing shortness of breath, worsening cough and pleuritic chest pain. # Acute left lower lobe hospital-acquired pneumonia with possible aspiration pneumonia, present on admission. Active. - Patient presented with shortness of breath, pleuritic chest pain, worsening cough and mild leukocytosis. Recently hospitalized from 02/23/2017-02/28/2017. - Chest x-ray demonstrated left lower lobe infiltrate consistent with pneumonia , as above (reviewed by admitting team). - Lactic acid normal at 1.2. Pro-calcitonin normal at 0.03. MRSA screen is negative. - blood cultures 2 showed NGTD, sputum Gram stain and culture showed normal betzy, strep pneumoniae and legionella urine antigens negative. Respiratory PCR was negative - Patient received Zosyn IV 3.375 g 1, levofloxacin IV 750 mg 1 and vancomycin with dosing per pharmacy in the ED. Continued Zosyn, levofloxacin - Ordered Atrovent as needed for shortness of breath. - Speech evaluation was ordered to assess the patient for silent aspiration as her pneumonia is recurring. They put patient on nectar thickened liquids and mechanical soft diet - Continue supplemental oxygen titrate up as needed. Patient is on 2 L at rest and 3 L with ambulation at baseline. - Tessalon Perles 100 mg 3 times a day as needed for cough. Robitussin-DM - On 03/09, Levaquin was DC'd as she did have some QT prolongation on telemetry -- PTOT consult : "anticipate discharge home with HH PT once medically stable. Pt reports that over the weekend her caregiver is not availalbe and she has no family support within the home. Recommend caregiver is able to be available prior to discharge as pt requires CGA for ambulation at this time. PT to progress as pt tolerates." -- Discontinued Zosyn, started PO augmentin on 03/14, five more days of PO augmentin, she is encouraged to take probiotics and avoid thin liquids # Acute chest pain improved -- xopnex. robitussin DM -- GI cocktail x 1 dose -- No ST elev on EKG -- Troponin is ordered and negative, no morphine due to low BP #Hypotension, acute 03/12 resolved on 03/13 -- She was noted to be hypotensive by her nurse this a.m. 500 mL fluid bolus + 100 mL per hour fluids given -- d/c Pain medications, decrease metoprolol to 12.5 mg by mouth twice a day, hold furosemide. -- Continue to monitor, she is asymptomatic. -- Blood pressures have improved upon discontinuation of pain medications from before. oxycodone 2.5 mg by mouth twice a day when necessary Chronic problems: # Chronic atrial fibrillation, present on admission. worsened -Continue Plavix 75 mg daily. - Per Dr. Roque, digoxin was added to her regimen as blood pressure is not high enough for increase in metoprolol -Metoprolol 25 mg twice a day -Because of poorly-controlled atrial fibrillation, she was started on digoxin, current dose id 0.125 mg - We request levels to be drawn by PCP in 4 weeks # Hyperlipidemia, presently on admission. Stable. - Continue atorvastatin 40 mg daily at bedtime. # Peptic ulcer disease, present on admission. Presumed stable. - Continue Protonix 40 mg daily and H2 antony twice daily. # Seizures on Depakote, present on admission. - Continue Depakote 500 mg twice a day. # Pulmonary hypertension with possible cor pulmonale, present on admission. Presumed stable. - hold furosemide 20 mg twice a day. - Continue potassium chloride 10 mEq daily. - Continue supplemental oxygen titrate up as needed. Patient is on 2 L at rest and 3 L with ambulation at baseline. # Chronic respiratory failure with hypoxia,on chronic O2,POA -Contnue supplemental O2 -Most likely secondary to pulmonary hypertension, COPD and HFpEF # Chronic HFpEF, present on admission -Continue her current medications of Lasix and metoprolol ( dose altered as above). #Insomnia, present on admission. Stable. - Mirtazapine 45 mg daily at bedtime as needed for insomnia. #Depression, present on admission. Stable. - Continue fluoxetine 40 mg daily. #Chronic pain active -- tramadol 50 mg QD PRN, in stead of oxycodon 2.5 mg BID PRN PRN antiemetics: Zofran and Maalox. PRN bowel regimen: Senna and MiraLAX. PRN analgesics: Tylenol and tramadol QD PRN pain. Patient is admitted under inpatient status with expected length of stay greater than 2 midnights due to severity of presenting symptoms, risk of adverse event, and complexity of treatment plan. Exam Vital Signs (Last) Date Time Temp Pulse Resp B/P Pulse Ox O2 Delivery O2 Flow Rate FiO2 03/16/17 12:20 73 03/16/17 08:30 Supplement Oxygen 03/16/17 04:12 36.7 99/48 98 2.00 03/15/17 20:00 18 Exam Constitutional: Elderly woman in no acute distress Head: Normocephalic atraumatic Lungs: Improved lungs sound Heart: Regular rate and rhythm S1-S2 Abdomen: Soft nontender bowel sounds present Extremities: No pedal edema Neuro: Alert and oriented 3, Test 03/09/17 00:01 03/09/17 00:30 03/09/17 05:50 03/09/17 10:35 Lactic Acid Level 1.2mmol/L (0.4-2.0) Magnesium Level 2.1mg/dL (1.6-2.6) Procalcitonin 0.03ng/mL (0.00-0.08) Band Neutrophils % 1% (1-5) Urine Legionella pneumophilia Ag Negative (Negative) Test 03/09/17 10:48 03/11/17 14:55 03/12/17 06:03 03/13/17 06:36 Urine Color Straw (YELLOW) Urine Appearance Hazy (CLEAR,HAZY) Urine pH 7.0 (5.0-8.0) Urine Specific [place] 1.010 (1.003-1.035) Urine Protein Negativemg/dL (NEG,TRACE) Urine Glucose (UA) Negativemg/dL (NEGATIVE) Urine Ketones Negativemg/dL (NEGATIVE) Urine Occult Blood Negative (NEGATIVE) Urine Nitrite Negative (NEGATIVE) Urine Bilirubin Negative (NEGATIVE) Urine Urobilinogen Normalmg/dL (NORMAL) Urine Leukocyte Esterase Small (NEGATIVE) Urine RBC 0-2/hpf (0-2) Urine WBC 0-5/hpf (0-5) Urine Epithelial Cells Occasional/hpf (NONE-MOD) Urine Crystals None seen (NONE SEEN) Urine Bacteria None/hpf (NONE-FEW) Urine Hyaline Casts None/lpf (NONE) Urine Granular Casts None seen (NONE SEEN) Urine Waxy Casts None seen (NONE SEEN) Urine Red Blood Cell Casts None seen (NONE SEEN) Urine White Blood Cell Casts None seen (NONE SEEN) Urine Mucus None seen (None Seen) Urine Trichomonas None seen (NONE SEEN) Urine Yeast Few (NONE SEEN) Urinalysis Comment None Urine Culture Reflexed Indicated Troponin T < 0.010ug/L (0.0-0.011) Heparin-PF4 Ab Optical Density 0.089OD (<0.4) Heparin-PF4 Antibody Interpretation Not indicated White Blood Count 5.9th/mm3 (3.8-10.1) Red Blood Count 3.78mil/mm3 (3.90-5.20) Hemoglobin 10.5g/dL (12.0-15.6) Hematocrit 34.8% (35.0-46.0) Mean Corpuscular Volume 92.1fL (81-100) Mean Corpuscular Hemoglobin 27.8pg (27.0-35.0) Mean Corpuscular Hemoglobin Concent 30.2% (32.0-37.0) Red Cell Distribution Width 17.7% (12.3-15.4) Platelet Count 275bil/L (150-400) Neutrophils (%) (Auto) 55.0% (40-74) Lymphocytes (%) (Auto) 29.7% (14-46) Monocytes (%) (Auto) 9.6% (4-12) Eosinophils (%) (Auto) 4.2% (0-5) Basophils (%) (Auto) 0.5% (0-3) Sodium Level 144mEq/L (134-144) Potassium Level 4.1mEq/L (3.5-5.2) Chloride Level 106mEq/L (97-108) Carbon Dioxide Level 26mmol/L (18-29) Blood Urea Nitrogen 17mg/dL (8-27) Creatinine 0.53mg/dL (0.57-1.00) Estimat Glomerular Filtration Rate 157mL/min (>59) Glucose Level 90mg/dL (60-99) Calcium Level 8.3mg/dL (8.5-10.1) Total Bilirubin 0.2mg/dL (0.0-1.2) Aspartate Amino Transf (AST/SGOT) 13U/L (0-50) Alanine Aminotransferase (ALT/SGPT) 5U/L (0-32) Alkaline Phosphatase 57U/L (25-165) Total Protein 5.1g/dL (6.4-8.4) Albumin 3.1g/dL (3.4-5.0) Microbiology Results Blood culture 2 NGTD . Discharge Medications Discharge Medications Acetaminophen (Tylenol Arthritis) 650 Mg Tablet.er 1,300 MG PO HS (Reported) Acetaminophen (Tylenol Arthritis) 650 Mg Tablet.er 650 MG PO MORNING (Reported) Amoxicillin/Clav K 500-125 mg (Amoxicillin/Clav K 500-125 mg) 1 Each Tablet 1 TAB PO TIDWM Prescribed by: ELIZABETH US DO Atorvastatin (Lipitor) 40 Mg Tablet 40 MG PO HS (Reported) Cholecalciferol (Vitamin D3) (Vitamin D3) 1,000 Unit Tab.chew 1,000 UNIT PO DAILY (Reported) Clopidogrel Bisulfate (Plavix) 75 Mg Tablet 75 MG PO DAILY Prescribed by: LOUISE PEREZ DO Digoxin (Lanoxin) 0.125 Mg Tablet 0.125 MG PO DAILY@12 Prescribed by: ELIZABETH US DO Divalproex DR (Depakote DR) 500 Mg Tablet 500 MG PO BID (Reported) Swallowed whole without chewing to avoid local irritation of the mouth and throat. Fluoxetine (Prozac) 40 Mg Capsule 40 MG PO DAILY (Reported) Furosemide (Furosemide) 40 Mg Tablet 20 MG PO 30,16 Prescribed by: ELIZABETH US DO Ipratropium [place] (Ipratropium [place] Inhalant Solution) 0.2 Mg/1 Ml Solution 0.2 MG IH QID (Reported) Metoprolol Tartrate (Metoprolol Tartrate) 50 Mg Tablet 25 MG PO BID (Reported) Pantoprazole DR (Pantoprazole DR) 40 Mg Tablet.dr 40 MG PO DAILYAC Prescribed by: SUSANA CUENCA MD Potassium Chloride (Potassium Chloride) 10 Meq Capsule.er 10 MEQ PO DAILY ( Reported) TAKE WITH FOOD Ranitidine (Ranitidine) 150 Mg Capsule 150 MG PO BID (Reported) As needed Mirtazapine (Remeron) 45 Mg Tablet 45 MG PO HS PRN PRN Insomnia (Reported) Polyethylene Glycol 3350 (Miralax) 17 Gm Powd.pack 17 GM PO DAILY PRN PRN For Constipation (Reported) oxyCODONE (oxyCODONE) 5 Mg Capsule 5 MG PO Q4H PRN PRN For Pain (Reported) Followup Plan Follow-up plan Please f/u with PCP in 1-2 weeks Discharge Diet: Other (mech soft/ nectar thickened) Discharge Activity: Home Health Phyical Therapy Patient Instructions Patient is on baseline 2L oxygen Pt/OT Assessment * Pt tearful upon entering room reporting chest pain with coughing and deep breathing. RN aware of chest pain. Pt agreeable to mobilize with PT. She demonstrates SBA bed mobility and transfers. Pt able to ambulate ~150 feet with a decreased gait speed, no LOB noted. She does continue to have increased shuffling with limited foot clearance on the L compared to R with increased fatigue. Pt notes that this is baseline for her and was able to respond to cues to increase step length. At this time, pt is nearing her baseline mobility level. Recommend discharge home once medically stable with HH PT. Recommend pt continue to transfer to chair for meals and walk with nursing staff 2-3 times per day to maintain activity level. No further acute PT indicated at this time. Tolerance to Treatment * Good Current Discharge Recommendations * Home Health PT * Home Discharge Mode of Transportaion * Private Car Time spent Greater than 30 minutes was spent in preparation of discharge with greater than 50% of that time dedicated to patient counseling and coordination of care. Elizabeth Us DO Mar 16, 2017 23:29
== END 2017-03-16 12:45 | disposition home health service (06) | DRG 178 ==
LOC: SED 21:35 → EDBD 21:35 → MPC 03-09 00:17
PROVIDERS: ADMIT Internal Medicine; ATTEND Family Medicine
DX: J69.0 Pneumonitis due to inhalation of food and vomit (principal); I50.32 Chronic diastolic (congestive) heart failure; J96.11 Chronic respiratory failure with hypoxia; G40.909 Epilepsy, unspecified, not intractable, without status epilepticus; I48.2 Chronic atrial fibrillation; J44.9 Chronic obstructive pulmonary disease, unspecified; K27.9 Peptic ulcer, site unspecified, unspecified as acute or chronic, without hemorrhage or perforation; G47.00 Insomnia, unspecified; F32.9 Major depressive disorder, single episode, unspecified; Z66 Do not resuscitate; G89.29 Other chronic pain; R07.9 Chest pain, unspecified; I95.9 Hypotension, unspecified; I27.2 Other secondary pulmonary hypertension; Z88.6 Allergy status to analgesic agent; Z88.0 Allergy status to penicillin; Z99.81 Dependence on supplemental oxygen